=== PATIENT | female | born 1955 | race Caucasian/White ===

== ENCOUNTER 2016-04-01 15:05 | Emergency (ER) | payer SELFPAY ==
[~2016-04-01] VITALS: Ht 170.2 cm; Wt 102.1 kg
[~2016-04-01 15:05] MED LIST: ACET-1256 PO; ASPI325T45 PO
[2016-04-01 15:09] VITALS: TEMP 36.9; Ht 170.2 cm; Wt 102.1 kg
--- NOTE | 2016-04-01 15:29 | EMERGENCY ROOM VISIT NOTE ---
History First contact with patient: 15:13 Chief Complaint: NEURO SYMPTOMS Stated Complaint: NUMBNESS IN HAND, L LEG INTO TOES Nursing Triage Summary: Patient c/o "numbness in all 10 of her fingers, left toes and up to the knee in the leg. I've been having trouble with it the last couple months off and on. Today it got worse. Maybe it's just stress, I don't know." History of Present Illness The patient is a 61 year old female who presents to the Emergency Room via private vehicle with complaints of "numbness in hand, left leg and the toes". The patient states that today around 10:30 AM she was at home sitting when she notes her left leg started to go numb from the knee distally. She felt as if she was unable to lift the leg, and notes it felt as if it went completely numb. She feels that when she walks she has to drag the left leg. In addition her 10 fingers also feel numb and that has been occurring off and on for nearly one year now and she does have a history of carpal tunnel. She states that her legs have gone "numby" off and on for quite some time but nothing quite as severe as today. There is also associated dizziness which began around 10:30. The patient feels she is under stress recently and didn feel that she had chills and fever a few days ago but none today. There is associated blurred vision in the right eye which she's had for 8 years she believes this secondary to her history of head injuries. She does have a history of blood clots in her legs, but after further clarification she noted noted she was not formally diagnosed with DVTs. She did have abdominal pain yesterday but none today. She denies any recent falls, injuries, neck pain today, low back pain, arm weakness, chest pain, shortness of breath. Review of Systems A complete 10-point Review of Systems was discussed with the patient, with pertinent positives and negatives listed in the History of Present Illness. All remaining Review of Systems questions can be considered negative unless otherwise specified. Past Medical/Surgical History Medical Problems: (1) Chest pain (2) No Known Active Medical Problems DVT, skin problems, pneumonia, stomach problems Family History FH: HTN (hypertension) FH: cancer FH: diabetes mellitus FH: heart disease FH: lung disease Social History Smoking Status: Former Smoker Alcohol Use: occasionally Drug Use: none Housing Status: lives alone Occupation Status: employed Current/Historical Medications No Active Prescriptions or Reported Meds Allergies Coded Allergies: No Known Allergies (Unverified , 01/29/16) Physical Exam Vital Signs Date Time Temp Pulse Resp B/P Pulse Ox O2 Delivery O2 Flow Rate FiO2 04/01/16 21:58 77 18 121/70 97 04/01/16 20:40 69 18 127/84 96 Room Air 04/01/16 18:36 76 18 127/47 95 Room Air 04/01/16 16:55 68 20 127/81 95 Room Air 04/01/16 16:13 72 04/01/16 15:56 93 Room Air 04/01/16 15:56 73 19 123/79 94 Room Air 04/01/16 15:09 36.9 82 22 124/68 96 Room Air Physical Exam VITAL SIGNS - Vital signs and nursing notes were reviewed. Patient is afebrile , she is normotensive, she is not tachycardic and is saturating well on room air at 96%. GENERAL -61-year-old female appearing her stated age who is in no acute distress. The patient is standing upon my entrance into the exam room with support via cane. Communicates well with provider and answers questions appropriately. SKIN - Without rashes. This there are no breaks in the integument. HEAD - NC/AT. EYES - PERRL with EOMI bilaterally. Sclera anicteric. Palpebral conjunctiva pink and moist with no injection noted. No [place] signs or raccoons eyes. EARS - No deformities of external structures noted on gross examination bilaterally. No hemotympanum. External auditory canals without discharge or otorrhea. Tympanic membranes pearly benson without retraction or bulging. No fluid or purulent material visualized behind the TM. Handle of malleus, umbo, cone of light, pars tensa/flaccid all easily visualized. NOSE - Midline and without cyanosis. No epistaxis or purulent drainage noted. MOUTH/OROPHARYNX - Without perioral cyanosis. Buccal mucosa pink and moist and without leukoplakia. Tongue midline with equal elevation of palate bilaterally. NECK - Neck with FROM. No Meningeal signs. LUNGS - Chest wall symmetric without accessory muscle use, intercostals retractions, or central cyanosis. Normal vesicular breath sounds CTA B/L. No wheezes, rales, or rhonchi appreciated. CARDIAC - RRR with S1/S2. No murmur, rubs, or gallops appreciated. EXTREMITIES - No clubbing or peripheral cyanosis. No pretibial edema present. Vascularly intact. +5/5 strength noted in UE/LE bilaterally. NEUROLOGIC - Cranial nerves II through XII grossly intact. Sensory intact to light touch throughout. Patellar reflexes +2/4. No neurologic deficit. PSYCH - A&Ox3 and cooperates fully with examiner. Pt is very pleasant and interacts well with examiner. Medical Decision & Procedures ER Provider Diagnostic Interpretation: CT OF THE HEAD WITHOUT CONTRAST CLINICAL HISTORY: Left leg numb, finger numbness, dizzy COMPARISON STUDY: Head CT January 29, 2016. CT DOSE: 614.27 mGy.cm TECHNIQUE: Helical axial images of the head were obtained without IV contrast. Automated exposure control was utilized for the study. FINDINGS: No acute intracranial hemorrhage, midline shift or mass effect is present. Ventricular system is normal. The basilar cisterns are patent. There are no extra-axial collections. Benson-white differentiation is maintained. There are no findings to suggest acute dural sinus thrombosis or acute territorial infarct. There are no calvarial abnormalities. Visualized portions of the sinuses and mastoid air cells are clear. IMPRESSION: No acute intracranial findings. Electronically signed by: Etienne Hernandez M.D. 04/01/2016 3:36 PM Dictated Date/Time: 04/01/2016 3:33 PM LEFT LOWER EXTREMITY VENOUS DOPPLER HISTORY: Left lower leg edema COMPARISON STUDY: None. FINDINGS: There is normal compressibility, flow, and augmentation within the left lower extremity deep venous system. IMPRESSION: No DVT within the left lower extremity. Electronically signed by: Emanuel Spangler M.D. 04/01/2016 6:24 PM Dictated Date/Time: 04/01/2016 6:23 PM LEFT LOWER EXTREMITY ARTERIAL DOPPLER STUDY HISTORY: Left lower leg edema, numbness COMPARISON STUDY: None. FINDINGS: There are normal triphasic to biphasic waveforms seen throughout the left lower extremity arterial system. No elevated velocities to suggest hemodynamically significant stenosis. No areas of arterial occlusion. There is a small popliteal cyst measuring 3.6 x 1.3 cm. The ankle brachial indices on the right measured with the posterior tibial artery was 1.4 and the dorsalis pedis artery was 1.3. The left measured with the posterior tibial artery was 1.3 and the dorsalis pedis artery was 1.2. IMPRESSION: No hemodynamically significant stenosis seen within the left lower extremity arterial system. Electronically signed by: Emanuel Spangler M.D. 04/01/2016 6:27 PM Dictated Date/Time: 04/01/2016 6:25 PM CHEST ONE VIEW PORTABLE CLINICAL HISTORY: Dizziness. History of pneumonia. COMPARISON STUDY: Chest radiograph January 29, 2016. FINDINGS: Lung volumes are normal. There is no pneumothorax or pleural effusion. There is no evidence of pulmonary edema. Cardiomediastinal silhouette is within normal limits. IMPRESSION: No acute cardiopulmonary findings. Electronically signed by: Etienne Hernandez M.D. 04/01/2016 3:50 PM Dictated Date/Time: 04/01/2016 3:49 PM Laboratory Results 04/01/16 15:50 Red Blood Count 4.37, Mean Corpuscular Volume 88.3, Mean Corpuscular Hemoglobin 31.1, Mean Corpuscular Hemoglobin Concent 35.2, Mean Platelet Volume 10.0, Neutrophils (%) (Auto) 61.9, Lymphocytes (%) (Auto) 26.8, Monocytes (%) (Auto) 7.4, Eosinophils (%) (Auto) 3.5, Basophils (%) (Auto) 0.2, Neutrophils # (Auto) 5.82, Lymphocytes # (Auto) 2.52, Monocytes # (Auto) 0.70, Eosinophils # (Auto) 0.33, Basophils # (Auto) 0.02 04/01/16 15:50 Test 04/01/16 15:50 04/01/16 18:13 04/01/16 20:34 White Blood Count 9.41 K/uL (4.8-10.8) Red Blood Count 4.37 M/uL (4.2-5.4) Hemoglobin 13.6 g/dL (12.0-16.0) Hematocrit 38.6 % (37-47) Mean Corpuscular Volume 88.3 fL (80-100) Mean Corpuscular Hemoglobin 31.1 pg (25-34) Mean Corpuscular Hemoglobin Concent 35.2 g/dl (32-36) Platelet Count 252 K/uL (130-400) Mean Platelet Volume 10.0 fL (7.4-10.4) Neutrophils (%) (Auto) 61.9 % Lymphocytes (%) (Auto) 26.8 % Monocytes (%) (Auto) 7.4 % Eosinophils (%) (Auto) 3.5 % Basophils (%) (Auto) 0.2 % Neutrophils # (Auto) 5.82 K/uL (1.4-6.5) Lymphocytes # (Auto) 2.52 K/uL (1.2-3.4) Monocytes # (Auto) 0.70 K/uL (0.11-0.59) Eosinophils # (Auto) 0.33 K/uL (0-0.5) Basophils # (Auto) 0.02 K/uL (0-0.2) RDW Standard Deviation 41.3 fL (36.4-46.3) RDW Coefficient of Variation 12.8 % (11.5-14.5) Immature Granulocyte % (Auto) 0.2 % Immature Granulocyte # (Auto) 0.02 K/uL (0.00-0.02) Anion Gap 10.0 mmol/L (3-11) Est Creatinine Clear Calc Drug Dose 96.6 ml/min Estimated GFR () 98.0 Estimated GFR (Non- 84.5 BUN/Creatinine Ratio 13.9 (10-20) Calcium Level 8.9 mg/dl (8.5-10.1) Magnesium Level 2.0 mg/dl (1.8-2.4) Total Bilirubin 0.2 mg/dl (0.2-1) Aspartate Amino Transf (AST/SGOT) 11 U/L (15-37) Alanine Aminotransferase (ALT/SGPT) 18 U/L (12-78) Alkaline Phosphatase 71 U/L (45-117) Troponin I < 0.015 ng/ml (0-0.045) Total Protein 7.1 gm/dl (6.4-8.2) Albumin 4.0 gm/dl (3.4-5.0) Globulin 3.1 gm/dl (2.5-4.0) Albumin/Globulin Ratio 1.3 (0.9-2) Thyroid Stimulating Hormone (TSH) 0.718 uIu/ml (0.300-4.500) Lyme Disease IgG Antibody NEG (NEG) Lyme Disease IgM Antibody NEG (NEG) Prothrombin Time 10.3 SECONDS (9.0-12.0) Prothromb Time International Ratio 1.0 (0.9-1.1) Activated Partial Thromboplast Time 26.8 SECONDS (21.0-31.0) Partial Thromboplastin Ratio 1.0 Urine Color YELLOW Urine Appearance CLEAR (CLEAR) Urine pH 6.5 (4.5-7.5) Urine Specific [place] 1.004 (1.000-1.030) Urine Protein NEG (NEG) Urine Glucose (UA) NEG (NEG) Urine Ketones NEG (NEG) Urine Occult Blood NEG (NEG) Urine Nitrite NEG (NEG) Urine Bilirubin NEG (NEG) Urine Urobilinogen NEG (NEG) Urine Leukocyte Esterase NEG (NEG) Urine Opiates Screen NEG (NEG) Urine Methadone, Qualitative NEG (NEG) Urine Barbiturates NEG (NEG) Urine Phencyclidine (PCP) Level NEG (NEG) Ur Amphetamine/Methamphetamine NEG (NEG) MDMA (Ecstasy) Screen NEG (NEG) Urine Benzodiazepines Screen NEG (NEG) Urine Cocaine Metabolite NEG (NEG) Urine Marijuana (THC) NEG (NEG) Medical Decision Patient was seen and evaluated as above. After obtaining a thorough history and physical examination IV access was obtained and a stat CT of the head was ordered after concern for potential stroke like symptoms. Stat CT was obtained and was negative. IV access was initiated and a CBC, CMP, TSH, magnesium, regulation studies, UA clean catch culture if indicated, troponin, EKG, chest 1 view portable, urine drug screen, Lyme screen, RPR, NIH stroke scale secondary to subjective and objective information findings. Monitor was applied and continuous pulse ox was initiated. Above workup was relatively unremarkable with a CBC revealing no leukocytosis or anemia, there was no coagulation deficit , CMP revealed no elect slight abnormality or evidence of kidney failure. AST was slightly low at 11. TSH was within normal limits. Lyme disease screen negative with RPR pending. Toxicology screen negative as well as urine negative. With the above workup being relatively unremarkable and the EKG revealing a normal sinus rhythm rate of 76 bpm and negative troponin I do not suspect any emergent or surgical nature the patient's symptoms at this time. I then ordered an ultrasound of the left lower extremity to verify good arterial and venous supply and rule out clot. Results as above. No vascular compromise. Chest x-ray results are obtained and was within normal limits. Today the patient's workup was unremarkable therefore believe that emergent or surgical causes of her symptoms at this time are less likely. The patient's vital signs while here were stable. Patient was not anemic. I do believe the patient is able to follow-up in the outpatient setting with a neurologist whom she indicated she followed with in the past and had good success. She was instructed to call him tomorrow as well as her family doctor to follow up from today's visit. She was educated upon worrisome symptoms in which to return, had questions answered prior to discharge and was discharged home in good condition. In evaluation treatment this patient the following differential diagnoses were entertained: Arterial compromise of the leg, DVT, cardiac event, pneumonia, neurologic disorder, syphilis, Lyme disease, among many others. I do not suspect a leg numbness secondary to cauda equina syndrome as it is only from the knee down and she does not have any numbness or tingling in the genital region or incontinence. Impression Primary Impression: Dizzy Additional Impression: Left leg numbness Departure Information Dispostion Home / Self-Care Condition GOOD Prescriptions No Active Prescriptions or Reported Meds Referrals No Doctor, Assigned (PCP) Cielo Tse M.D. Patient Instructions [facility] Additional Instructions You were seen in the emergency department for dizziness, numbness of your leg and fingers. Your blood work did not reveal any sign of infection or anemia. There was no slight abnormality. The kidneys are working well. Your AST level is slightly low at 11. Your urine was normal. Your Lyme disease test was negative. The ultrasounds of your leg did not show any problems with blood flow. Your arteries and veins are working well. The x-ray of your chest did not reveal any emergent findings. The CT of your head did not reveal any emergent findings. Please follow-up with your family doctor regarding today's visit as well as a neurologist. You were given the number for Dr. Tse. Please call her family doctor and Dr. Tse first thing tomorrow morning to schedule follow-up. Please eat a healthy and well balanced diet and drink plenty of water. Please return to the emergency department with any new/concerning symptoms. Problem Qualifiers
--- NOTE | 2016-04-01 15:37 | DIAGNOSTIC IMAGING REPORT ---
CT OF THE HEAD WITHOUT CONTRAST CLINICAL HISTORY: Left leg numb, finger numbness, dizzy COMPARISON STUDY: Head CT January 29, 2016. CT DOSE: 614.27 mGy.cm TECHNIQUE: Helical axial images of the head were obtained without IV contrast. Automated exposure control was utilized for the study. FINDINGS: No acute intracranial hemorrhage, midline shift or mass effect is present. Ventricular system is normal. The basilar cisterns are patent. There are no extra-axial collections. Benson-white differentiation is maintained. There are no findings to suggest acute dural sinus thrombosis or acute territorial infarct. There are no calvarial abnormalities. Visualized portions of the sinuses and mastoid air cells are clear. IMPRESSION: No acute intracranial findings. Electronically signed by: Etienne Hernandez M.D. 04/01/2016 3:36 PM Dictated Date/Time: 04/01/2016 3:33 PM
--- NOTE | 2016-04-01 15:52 | DIAGNOSTIC IMAGING REPORT ---
CHEST ONE VIEW PORTABLE CLINICAL HISTORY: Dizziness. History of pneumonia. COMPARISON STUDY: Chest radiograph January 29, 2016. FINDINGS: Lung volumes are normal. There is no pneumothorax or pleural effusion. There is no evidence of pulmonary edema. Cardiomediastinal silhouette is within normal limits. IMPRESSION: No acute cardiopulmonary findings. Electronically signed by: Etienne Hernandez M.D. 04/01/2016 3:50 PM Dictated Date/Time: 04/01/2016 3:49 PM
[2016-04-01 15:56] VITALS: O2SAT 93
[2016-04-01 16:02] LABS: BASO % 0.2 %; BASO ABS # 0.02 K/uL (0-0.2); COMPLETE YES; EOS % 3.5 %; HEMATOCRIT 38.6 % (37-47); IG% 0.2 %; LYMPH % 26.8 %; LYMPH ABS # 2.52 K/uL (1.2-3.4); MEAN CELL VOLUME 88.3 fL (80-100); MEAN CORPUSCULAR HEMOGLOBIN 31.1 pg (25-34); MEAN CORPUSCULAR HGB CONC 35.2 g/dl (32-36); MONO % 7.4 %; NEUT % 61.9 %; PLATELET COUNT 252 K/uL (130-400); RED BLOOD COUNT 4.37 M/uL (4.2-5.4); WHITE BLOOD COUNT 9.41 K/uL (4.8-10.8)
[2016-04-01 16:21] LABS: ALT/SGPT 18 U/L (12-78); BLOOD UREA NITROGEN 11 mg/dl (7-18); BUN/CREATININE RATIO 13.9 (10-20); CALCIUM 8.9 mg/dl (8.5-10.1); CARBON DIOXIDE 27 mmol/L (21-32); CHLORIDE 106 mmol/L (98-107); CREATININE 0.77 mg/dl (0.60-1.20); GLUCOSE 83 mg/dl (70-99); POTASSIUM 3.8 mmol/L (3.5-5.1); SODIUM 143 mmol/L (136-145)
[2016-04-01 16:32] LABS: ALB/GLOB RATIO 1.3 (0.9-2); ALKALINE PHOSPHATASE 71 U/L (45-117); AST/SGOT 11 U/L (15-37); THYROID STIMULATING HORMONE 0.718 uIu/ml (0.300-4.500)
[2016-04-01 17:07] LABS: LYME DISEASE AB IGG NEG (NEG); LYME DISEASE AB IGM NEG (NEG)
--- NOTE | 2016-04-01 18:26 | DIAGNOSTIC IMAGING REPORT ---
LEFT LOWER EXTREMITY VENOUS DOPPLER HISTORY: Left lower leg edema COMPARISON STUDY: None. FINDINGS: There is normal compressibility, flow, and augmentation within the left lower extremity deep venous system. IMPRESSION: No DVT within the left lower extremity. Electronically signed by: Emanuel Spangler M.D. 04/01/2016 6:24 PM Dictated Date/Time: 04/01/2016 6:23 PM
--- NOTE | 2016-04-01 18:29 | DIAGNOSTIC IMAGING REPORT ---
LEFT LOWER EXTREMITY ARTERIAL DOPPLER STUDY HISTORY: Left lower leg edema, numbness COMPARISON STUDY: None. FINDINGS: There are normal triphasic to biphasic waveforms seen throughout the left lower extremity arterial system. No elevated velocities to suggest hemodynamically significant stenosis. No areas of arterial occlusion. There is a small popliteal cyst measuring 3.6 x 1.3 cm. The ankle brachial indices on the right measured with the posterior tibial artery was 1.4 and the dorsalis pedis artery was 1.3. The left measured with the posterior tibial artery was 1.3 and the dorsalis pedis artery was 1.2. IMPRESSION: No hemodynamically significant stenosis seen within the left lower extremity arterial system. Electronically signed by: Emanuel Spangler M.D. 04/01/2016 6:27 PM Dictated Date/Time: 04/01/2016 6:25 PM
[2016-04-01 18:48] LABS: PROTHROMBIN TIME (PATIENT) 10.3 SECONDS (9.0-12.0)
[2016-04-01 20:59] LABS: URINE APPEARANCE CLEAR (CLEAR); URINE BILIRUBIN NEG (NEG); URINE COLOR YELLOW; URINE NITRITE NEG (NEG); URINE PH 6.5 (4.5-7.5); URINE SPECIFIC GRAVITY 1.004 (1.000-1.030); UROBILINOGEN NEG (NEG); ZZUR CULT IF INDIC CLEAN CATCH NO
[2016-04-01 21:08] LABS: MANUAL MICROSCOPIC REQUIRED? NO; REVIEW REQ? NO
[2016-04-01 21:22] LABS: BENZODIAZEPINE, URINE NEG (NEG); COCAINE,URINE NEG (NEG); PHENCYCLIDINE, URINE NEG (NEG)
[2016-04-01 21:58] VITALS: BP 121/70; PULSE 77; O2SAT 97
[2016-04-02 02:48] LABS: RAPID PLASMA REAGIN NONREACTIVE (NONREACT)
== END 2016-04-01 21:59 | disposition home or self-care (01) ==
LOC: C.EDB 15:06 → C.EDA 21:59
DX: R42 Dizziness and giddiness (principal); R20.0 Anesthesia of skin; Z87.891 Personal history of nicotine dependence; Z86.718 Personal history of other venous thrombosis and embolism

== ENCOUNTER 2016-07-29 10:14 | Emergency (ER) | payer SELFPAY ==
[~2016-07-29] VITALS: Ht 170.2 cm; Wt 108.6 kg
[2016-07-29 10:20] VITALS: TEMP 37; Ht 170.2 cm; Wt 108.6 kg
[2016-07-29 12:05] LABS: BASO % 0.3 %; BASO ABS # 0.03 K/uL (0-0.2); COMPLETE YES; EOS % 2.4 %; HEMATOCRIT 41.3 % (37-47); IG% 0.1 %; LYMPH % 23.1 %; MEAN CELL VOLUME 90.8 fL (80-100); MEAN CORPUSCULAR HGB CONC 34.1 g/dl (32-36); MEAN PLATELET VOLUME 9.8 fL (7.4-10.4); MONO % 5.5 %; NEUT % 68.6 %; PLATELET COUNT 242 K/uL (130-400); RED BLOOD COUNT 4.55 M/uL (4.2-5.4); WHITE BLOOD COUNT 8.65 K/uL (4.8-10.8)
--- NOTE | 2016-07-29 12:13 | DIAGNOSTIC IMAGING REPORT ---
Venous Doppler left leg LEFT VENOUS DOPP LOWER EXT UNILAT CLINICAL HISTORY: L lower leg, swelling and weakness pain. Edema. TECHNIQUE: Venous Doppler COMPARISON STUDY: 04/01/2016 FINDINGS: Normal study IMPRESSION: Normal study Electronically signed by: See Ibarra M.D. 07/29/2016 12:11 PM Dictated Date/Time: 07/29/2016 12:11 PM
[2016-07-29 12:27] LABS: BUN/CREATININE RATIO 27.8 (10-20); CALCIUM 8.8 mg/dl (8.5-10.1); CREATININE 0.72 mg/dl (0.60-1.20)
[2016-07-29 12:56] LABS: LYME DISEASE AB IGG NEG (NEG); LYME DISEASE AB IGM NEG (NEG)
[2016-07-29 13:10] VITALS: BP 111/90; PULSE 74; O2SAT 97
--- NOTE | 2016-07-29 17:22 | EMERGENCY ROOM VISIT NOTE ---
ED Visit Note First contact with patient: 11:17 Chief Complaint: Left lower leg pain. History of Present Illness: Purnima vargas is a 61-year-old white female who is ambulates into the ED using a cane complaining of left lower leg pain, swelling and numbness. Patient reports she was her normal self until approximately 2 weeks ago. She reports after being outside she felt the back of her leg and noted a tick embedded in her leg over the Achilles tendon. She removed the tick without difficulty but was unsure she removed all of the tick. She reports over the last 2 weeks she has noted the area where the tick removed started scabbing over and became painful. She goes on to report that over the last 2 days she has developed numbness sensation throughout the lower leg and she feels that her leg is swollen. Additionally she reports that she feels like she has weakness in her knee and that when she ambulates is going to give out. She describes her discomfort as a throbbing sensation throughout the lower leg. She rates her discomfort 6/10. Her pain is nonradiating. Her pain worsens with ambulation. She has not identified any alleviating factors related to the pain. She has not taken any medications for pain prior to arrival at the hospital. As previously noted associated with her pain she does report she has a numbness sensation throughout the leg and she feels that the leg is swollen. Additionally she reports last evening she was running a temperature of 100F and is unsure this has anything to do with her current symptoms. She denies skin eruptions, skin color changes, headache, dizziness, lightheadedness, upper respiratory tract symptoms, shortness of breath, cough, abdominal pain, nausea, vomiting, decreased appetite, previous clots, claudication, cramping, other joint pains, previous Lyme's disease. Review of Systems: As noted above in history of present illness. All body systems were reviewed and found to be negative as noted above. Past Medical History: Unspecified heart disease, unspecified skin disorder, pneumonia, unspecified stomach disorder, lower extremity DVT. Current Medications: Patient denies. Allergies to Medications: Patient denies. Social History: Patient is not currently employed; she feels safe in her home environment; she admits to tobacco and alcohol use. Physical Examination: Vital Signs: Date Time Temp Pulse Resp B/P Pulse Ox O2 Delivery O2 Flow Rate FiO2 07/29/16 13:10 74 18 111/90 97 07/29/16 10:20 37.0 79 22 126/59 95 Room Air GENERAL: 61-year-old female in mild distress due to pain, nontoxic-appearing, afebrile and hemodynamically stable. NEUROLOGICAL: Awake, alert and oriented to person, place and time. Answering questions appropriately and following commands. Good hand eye coordination. No focal motor or sensory deficits. SKIN: Warm, dry and pink. Left Lower Extremity: Over the posterior aspect of the lower leg over the Achilles tendon patient has a dime sized scab lesion. There is no local erythema or edema. There is no local lymphadenitis. I did not unroofed the lesion to see if there is any remanent of tick. This area is mildly tender to palpation but does not appear infected. HEENT: Atraumatic and normocephalic. PERRLA. Sclera white and conjunctiva pink. No drainage from naris. Oral cavity moist and pink. Pharynx is nonerythematous or edematous. Speech normal. No lymphadenopathy. Trachea midline. No jugular venous distention. THORAX: Lungs sounds are clear to auscultation and equal bilaterally with symmetrical chest wall. No wheezing, rales or rhonchi. No crepitus, tenderness , subcutaneous air or deformities noted. HEART: Regular rate and rhythm. No gallops, rubs or murmurs are appreciated. ABDOMEN: Flat, soft and nontender. Positive bowel sounds in all quadrants. No guarding, rigidity or organomegaly. LEFT LOWER EXTREMITY: No gross bony deformity. No shortening or malrotation. No tenderness in the hip, knee, ankle or foot. Negative ballottement test. Negative apprehension test. No laxity of the collateral cruciate ligaments. No lateral or medial joint line tenderness. Negative Koko's test. Mild tenderness over her scabbed area as previously noted on SKIN. I do not appreciate any calf tenderness or cords. There is mild dependent edema in the leg. Full range of motion of the hip, knee, ankle and foot. Distal pulses are intact and equal bilaterally. Capillary refill is brisk in the feet. Patient was able to distinguish light sensations through all dermatomes of the feet. No calf tenderness or cords. ED Course: Patient is assessed as noted above. Laboratory Testing: Test 07/29/16 11:50 Range/Units White Blood Count 8.65 4.8-10.8 K/uL Red Blood Count 4.55 4.2-5.4 M/uL Hemoglobin 14.1 12.0-16.0 g/dL Hematocrit 41.3 37-47 % Mean Corpuscular Volume 90.8 80-100 fL Mean Corpuscular Hemoglobin 31.0 25-34 pg Mean Corpuscular Hemoglobin Concent 34.1 32-36 g/dl Platelet Count 242 130-400 K/uL Mean Platelet Volume 9.8 7.4-10.4 fL Neutrophils (%) (Auto) 68.6 % Lymphocytes (%) (Auto) 23.1 % Monocytes (%) (Auto) 5.5 % Eosinophils (%) (Auto) 2.4 % Basophils (%) (Auto) 0.3 % Neutrophils # (Auto) 5.92 1.4-6.5 K/uL Lymphocytes # (Auto) 2.00 1.2-3.4 K/uL Monocytes # (Auto) 0.48 0.11-0.59 K/uL Eosinophils # (Auto) 0.21 0-0.5 K/uL Basophils # (Auto) 0.03 0-0.2 K/uL RDW Standard Deviation 43.2 36.4-46.3 fL RDW Coefficient of Variation 12.9 11.5-14.5 % Immature Granulocyte % (Auto) 0.1 % Immature Granulocyte # (Auto) 0.01 0.00-0.02 K/uL Sodium Level 140 136-145 mmol/L Potassium Level 4.0 3.5-5.1 mmol/L Chloride Level 105 98-107 mmol/L Carbon Dioxide Level 31 21-32 mmol/L Anion Gap 4.0 3-11 mmol/L Blood Urea Nitrogen 20 7-18 mg/dl Creatinine 0.72 0.60-1.20 mg/dl Est Creatinine Clear Calc Drug Dose 106.8 ml/min Estimated GFR () 106.2 Estimated GFR (Non- 91.7 BUN/Creatinine Ratio 27.8 10-20 Random Glucose 95 70-99 mg/dl Calcium Level 8.8 8.5-10.1 mg/dl Lyme Disease IgG Antibody NEG NEG Lyme Disease IgM Antibody NEG NEG Left Lower Leg Venous Doppler Ultrasound: Was reviewed by myself and read by the radiologist showing no deep vein thrombus. Patient was reassessed multiple times during her stay in the emergency department. Patient's knee was wrapped with an Devin bandage for support. Patient's case was reviewed with Dr. Ryan; we agreed on diagnostic approach, treatment, disposition and plan. Patient was educated about today's findings and instructed on her treatment plan ; she verbalizes understanding and agreement with this plan. Clinical Impression: Left lower leg pain. Mild dependent edema. Recent tick bite. Decision-Making: Initially my differential diagnosis I considered Lyme's disease , DVT, skin infection, Achilles tendinitis and other causes. Disposition: Patient discharged home in stable condition; prior to departure she was reassessed and subjectively reported she was feeling better and rated her discomfort 3/10. Plan: Patient was encouraged to alternate ibuprofen and acetaminophen every 3 hours as needed for pain. Patient was encouraged to continue using the Devin bandage and her cane for ambulation. Patient was encouraged to keep her leg elevated while at rest. Patient was encouraged to follow-up with her PCP for recheck. Patient was encouraged return the ED for worsening/uncontrolled pain, increasing swelling, worsening leg numbness/tingling, the development of redness , swelling, red streaking, pus like drainage or fever in the area of her tick wound or any new/concerning symptoms.
== END 2016-07-29 13:39 | disposition home or self-care (01) ==
LOC: C.EDB 10:16 → C.EDD 13:39
DX: M79.605 Pain in left leg (principal); R60.0 Localized edema; W57.XXXA Bitten or stung by nonvenomous insect and other nonvenomous arthropods, initial encounter; I51.9 Heart disease, unspecified; Z87.01 Personal history of pneumonia (recurrent); K31.9 Disease of stomach and duodenum, unspecified; Z86.718 Personal history of other venous thrombosis and embolism; Z72.0 Tobacco use

== ENCOUNTER 2017-04-02 15:40 | Observation (INO) | payer OTHER ==
[~2017-04-02] VITALS: Ht 167.6 cm; Wt 106.4 kg
--- NOTE | 2017-04-02 16:38 | EMERGENCY ROOM VISIT NOTE ---
ED Visit Note First contact with patient: 16:37 Staff note: I have reviewed the Patients chart and have discussed this case with my PA. I generally agree with the ED note and findings.
--- NOTE | 2017-04-02 16:58 | EMERGENCY ROOM VISIT NOTE ---
History First contact with patient: 15:45 Chief Complaint: FLU LIKE SX Stated Complaint: FLU LIKE SX, DIZZY, NAUSEA, FULL BODY PAIN, History of Present Illness The patient is a 62 year old female who presents to the Emergency Room with complaints of flulike symptoms. The patient was brought in by the [place] police. She reportedly got aggressive towards a home health care worker taking care of her mother. The patient is currently refusing most of my questions. She does complain of a headache and fever. She also complains of bilateral hand numbness and tingling. This has been going on for several days. She is concerned that she may have Lyme disease as she had a tick bite last year. I contacted the patient's daughter, who says that she has a history of " chemical imbalance." She has not been taking any medications for years. She also reportedly has not been to a doctor in several years. She is reportedly living with her mother. She denies any suicidal or homicidal ideations. Review of Systems 10 system review performed and negative unless noted in HPI or below. This was done to the best of my ability Past Medical/Surgical History Medical Problems: (1) Altered mental status (2) Chest pain (3) No Known Active Medical Problems Family History FH: HTN (hypertension) FH: cancer FH: diabetes mellitus FH: heart disease FH: lung disease Social History Smoking Status: Never Smoker Alcohol Use: occasionally Drug Use: none Housing Status: lives with family Occupation Status: employed Current/Historical Medications Unable to Obtain Active Prescriptions or Reported Meds Physical Exam Vital Signs Date Time Temp Pulse Resp B/P (MAP) Pulse Ox O2 Delivery O2 Flow Rate FiO2 04/02/17 21:11 87 16 137/92 96 Room Air 04/02/17 20:00 89 16 139/92 97 Room Air 04/02/17 19:28 97 16 105/77 95 Room Air 04/02/17 18:51 97 16 109/89 94 Room Air 04/02/17 17:44 95 16 126/88 93 Room Air 04/02/17 16:37 36.9 96 16 103/85 94 Room Air Physical Exam VITALS: Vitals are noted on the nurse's note and reviewed by myself. Vital signs stable. GENERAL: 62-year-old female, disheveled in appearance, SKIN: The skin was without rashes, erythema, edema, or bruising. HEAD: Normocephalic atraumatic. EYES: Pupils equal round and reactive to light and accommodation. Conjunctivae without injection, sclerae without icterus. Extraocular movements intact. \\MOUTH: Mucous membranes slightly dry NECK: Supple without nuchal rigidity. . No JVD. HEART: Regular rate and rhythm without murmurs gallops or rubs. LUNGS: Clear to auscultation bilaterally without wheezes, rales or rhonchi. No accessory muscle use. ABDOMEN: Positive bowel sounds x 4.Soft, MUSCULOSKELETAL: No muscle atrophy, erythema, or edema noted. Strength 5/5 throughout. NEURO: Patient was alert and oriented to person and place. She does not follow commands. She is moving all of her extremities without difficulty. Medical Decision & Procedures Laboratory Results 04/02/17 16:51 Red Blood Count 4.76, Mean Corpuscular Volume 90.3, Mean Corpuscular Hemoglobin 30.9, Mean Corpuscular Hemoglobin Concent 34.2, Mean Platelet Volume 10.2, Neutrophils (%) (Auto) 77.3, Lymphocytes (%) (Auto) 15.5, Monocytes (%) (Auto) 5.3, Eosinophils (%) (Auto) 1.3, Basophils (%) (Auto) 0.3, Neutrophils # (Auto) 8.67, Lymphocytes # (Auto) 1.74, Monocytes # (Auto) 0.60, Eosinophils # (Auto) 0.15, Basophils # (Auto) 0.03 04/02/17 16:51 Test 04/02/17 16:51 04/02/17 16:54 04/02/17 16:58 04/02/17 19:55 White Blood Count 11.22 K/uL (4.8-10.8) Red Blood Count 4.76 M/uL (4.2-5.4) Hemoglobin 14.7 g/dL (12.0-16.0) Hematocrit 43.0 % (37-47) Mean Corpuscular Volume 90.3 fL (80-100) Mean Corpuscular Hemoglobin 30.9 pg (25-34) Mean Corpuscular Hemoglobin Concent 34.2 g/dl (32-36) Platelet Count 273 K/uL (130-400) Mean Platelet Volume 10.2 fL (7.4-10.4) Neutrophils (%) (Auto) 77.3 % Lymphocytes (%) (Auto) 15.5 % Monocytes (%) (Auto) 5.3 % Eosinophils (%) (Auto) 1.3 % Basophils (%) (Auto) 0.3 % Neutrophils # (Auto) 8.67 K/uL (1.4-6.5) Lymphocytes # (Auto) 1.74 K/uL (1.2-3.4) Monocytes # (Auto) 0.60 K/uL (0.11-0.59) Eosinophils # (Auto) 0.15 K/uL (0-0.5) Basophils # (Auto) 0.03 K/uL (0-0.2) RDW Standard Deviation 41.9 fL (36.4-46.3) RDW Coefficient of Variation 12.7 % (11.5-14.5) Immature Granulocyte % (Auto) 0.3 % Immature Granulocyte # (Auto) 0.03 K/uL (0.00-0.02) Anion Gap 7.0 mmol/L (3-11) Est Creatinine Clear Calc Drug Dose 110.8 ml/min Estimated GFR () 109.7 Estimated GFR (Non- 94.6 BUN/Creatinine Ratio 14.0 (10-20) Calcium Level 9.2 mg/dl (8.5-10.1) Magnesium Level 1.9 mg/dl (1.8-2.4) Total Bilirubin 0.3 mg/dl (0.2-1) Aspartate Amino Transf (AST/SGOT) 12 U/L (15-37) Alanine Aminotransferase (ALT/SGPT) 20 U/L (12-78) Alkaline Phosphatase 77 U/L (45-117) Troponin I < 0.015 ng/ml (0-0.045) Total Protein 7.8 gm/dl (6.4-8.2) Albumin 4.2 gm/dl (3.4-5.0) Globulin 3.6 gm/dl (2.5-4.0) Albumin/Globulin Ratio 1.2 (0.9-2) Thyroid Stimulating Hormone (TSH) 1.340 uIu/ml (0.300-4.500) Salicylates Level 7.2 mg/dl (2.8-20) Acetaminophen Level < 2 ug/ml (10-30) Ethyl Alcohol mg/dL < 3.0 mg/dl (0-3) Lyme Disease IgG Antibody NEG (NEG) Lyme Disease IgM Antibody NEG (NEG) Influenza Type A Antigen Neg for Influ A (NEG) Influenza Type B Antigen Neg for Influ B (NEG) Urine Color YELLOW Urine Appearance CLEAR (CLEAR) Urine pH 5.5 (4.5-7.5) Urine Specific [place] 1.015 (1.000-1.030) Urine Protein NEG (NEG) Urine Glucose (UA) NEG (NEG) Urine Ketones NEG (NEG) Urine Occult Blood NEG (NEG) Urine Nitrite NEG (NEG) Urine Bilirubin NEG (NEG) Urine Urobilinogen NEG (NEG) Urine Leukocyte Esterase NEG (NEG) Test 04/02/17 20:10 Urine Opiates Screen NEG (NEG) Urine Methadone, Qualitative NEG (NEG) Urine Barbiturates NEG (NEG) Urine Phencyclidine (PCP) Level NEG (NEG) Ur Amphetamine/Methamphetamine NEG (NEG) MDMA (Ecstasy) Screen NEG (NEG) Urine Benzodiazepines Screen NEG (NEG) Urine Cocaine Metabolite NEG (NEG) Urine Marijuana (THC) NEG (NEG) Medications Administered Medications (Trade) Dose Ordered Sig/Luis Route Start Time Stop Time Status Last Admin Dose Admin Acetaminophen (Tylenol Tab) 1,000 mg NOW STAT PO 04/02/17 18:17 04/02/17 18:18 DC 04/02/17 18:23 1,000 MG Ketorolac Tromethamine (Toradol Inj) 30 mg NOW STAT IV 04/02/17 18:17 04/02/17 18:18 DC 04/02/17 18:24 30 MG ECG Indication: other Rate (beats per minute): 98 Rhythm: normal sinus Findings: other (Q waves in the anterior leads.) Change: no significant change ED Course Patient was seen and examined Vital signs including blood pressure were reviewed medications list was verified with patient Labs were obtained, and a saline lock was established Upon reevaluation, the patient was answering most questions appropriately. She would however occasionally answer inappropriately. She was evaluated by the psychiatric liaison. I discussed the patient's workup with her and her family. They voiced understanding. The case was discussed with supervising physician who personally evaluated the patient. It was also discussed with case management. I had a long discussion with the family regarding possible diagnosis and treatment plans. They did not feel comfortable discharging her home. I spoke with the [facility] hospitalist group, who kindly agreed to admit the patient for further evaluation Medical Decision Differential diagnosis: TIA, CVA, medical noncompliance, neglect, altered mental status, metabolic encephalopathy, infectious etiology, tr, other psychiatric disorders This patient is a 62-year-old female that was brought into the emergency department by the police with complaints of flulike symptoms and numbness and tingling in her hands. Upon arrival, it was unclear if the patient was able to make decisions for her care as she was refusing to answer any questions. She also clearly has an underlying psychiatric disorder. The etiology of her numbness and tingling is unclear. Her sensation appeared to be intact in her hands. CT of the head was negative. Workup was otherwise unremarkable. There is concern that the patient may be having a manic episode as she was answering some questions inappropriately. She also has no one to care for her at home. I 'm concerned for her safety. Did not feel comfortable discharging patient home. For this reason, she was evaluated hospitalist who kindly agreed to keep the patient overnight for further workup and treatment. This chart was completed in part utilizing [employer] Speech Voice Recognition software. Attempts were made to minimize the grammatical errors, random word insertions, pronoun errors and incomplete sentences. Any formal questions or concerns about the content, text or information contained within the body of this dictation should be directly addressed to the provider for clarification. Impression Primary Impression: Altered mental status Departure Information Dispostion Home / Self-Care Condition GOOD Prescriptions Unable to Obtain Active Prescriptions or Reported Meds Referrals No Doctor, Assigned (PCP) Jailene Culver MD Patient Instructions My [facility] Additional Instructions You had been evaluated in the emergency department for body aches and fever symptoms. A flu test was done and negative. Chest x-ray was also normal. Please follow-up with a primary care physician and/or psychologist/psychiatrist as soon as possible. A number to a psychiatrist's office was provided. Ibuprofen 600 mg and/or Tylenol 1000 mg every 8 hours for pain and fever You may also alternate these medications for more effective pain relief: Ibuprofen --4 HRS--> Tylenol --4 HRS--> ibuprofen --4 HRS--> Tylenol .... Stay well hydrated. Drink plenty of water. Do not hesitate to return to the emergency department with any new, worsening or concerning symptoms; especially, thoughts of harming your self or others, or not feeling safe at home.
--- NOTE | 2017-04-02 17:01 | DIAGNOSTIC IMAGING REPORT ---
CHEST ONE VIEW PORTABLE HISTORY: 62 years-old Female fever acute fever with flulike symptoms COMPARISON: Chest radiograph 04/01/2016 TECHNIQUE: Portable AP view of the chest FINDINGS: Cardiomediastinal and hilar silhouettes are within normal limits. Atherosclerosis of the aorta. Right lung apex is partially secured by the patient's chin. No pneumothorax, pleural effusion, focal airspace consolidation or overt pulmonary edema. The bones of the chest appear grossly intact. IMPRESSION: No acute process. The above report was generated using voice recognition software. It may contain grammatical, syntax or spelling errors. Electronically signed by: Mars Vivas M.D. 04/02/2017 5:00 PM Dictated Date/Time: 04/02/2017 4:59 PM
[2017-04-02 17:05] LABS: BASO % 0.3 %; BASO ABS # 0.03 K/uL (0-0.2); EOS % 1.3 %; EOS ABS # 0.15 K/uL (0-0.5); HEMOGLOBIN 14.7 g/dL (12.0-16.0); IG# 0.03 K/uL (0.00-0.02); LYMPH % 15.5 %; LYMPH ABS # 1.74 K/uL (1.2-3.4); MEAN CELL VOLUME 90.3 fL (80-100); MEAN CORPUSCULAR HEMOGLOBIN 30.9 pg (25-34); MEAN CORPUSCULAR HGB CONC 34.2 g/dl (32-36); MEAN PLATELET VOLUME 10.2 fL (7.4-10.4); MONO % 5.3 %; NEUT % 77.3 %; NEUT ABS # 8.67 K/uL (1.4-6.5); PLATELET COUNT 273 K/uL (130-400); RED CELL DISTRIBUTION WIDTH CV 12.7 % (11.5-14.5); RED CELL DISTRIBUTION WIDTH SD 41.9 fL (36.4-46.3); WHITE BLOOD COUNT 11.22 K/uL (4.8-10.8)
[2017-04-02 17:24] LABS: ALBUMIN 4.2 gm/dl (3.4-5.0); ALT/SGPT 20 U/L (12-78); BLOOD UREA NITROGEN 10 mg/dl (7-18); CALCIUM 9.2 mg/dl (8.5-10.1); CARBON DIOXIDE 28 mmol/L (21-32); CREATININE 0.69 mg/dl (0.60-1.20); GLUCOSE 107 mg/dl (70-99); POTASSIUM 4.4 mmol/L (3.5-5.1); SODIUM 139 mmol/L (136-145)
[2017-04-02 17:40] LABS: INFLUENZA B ANTIGEN Neg for Influ B (NEG)
[2017-04-02 17:43] LABS: ALKALINE PHOSPHATASE 77 U/L (45-117); AST/SGOT 12 U/L (15-37); TOTAL PROTEIN 7.8 gm/dl (6.4-8.2)
[2017-04-02] MEDS ORDERED: ACETAMINOPHEN 500 MG TAB PO STA (18:17)
[2017-04-02] MEDS ORDERED: KETOROLAC TROMETHAMINE 30 MG/ML VIAL IV STA (18:17)
--- NOTE | 2017-04-02 18:47 | DIAGNOSTIC IMAGING REPORT ---
HEAD WITHOUT CONTRAST (CT) CLINICAL HISTORY: 62 years-old Female with confusion. Acute confusion TECHNIQUE: Multiple axial CT images of the head were obtained without contrast. A dose lowering technique was utilized adhering to the principles of ALARA. CT DOSE: 537.48 mGy.cm COMPARISON: CT head 04/01/2016. FINDINGS: No acute intracranial hemorrhage, midline shift, intracranial mass, hydrocephalus, territorial ischemia or abnormal extra-axial collection. The calvarium is intact. The paranasal sinuses, mastoid air cells, and middle ear cavities are clear. Large right lisa bullosa. Mild leftward bowing of the nasal septum. IMPRESSION: No acute intracranial abnormality. The above report was generated using voice recognition software. It may contain grammatical, syntax or spelling errors. Electronically signed by: Mars Vivas M.D. 04/02/2017 6:46 PM Dictated Date/Time: 04/02/2017 6:44 PM
[2017-04-02] MEDS ORDERED: OPTIRAY 320 IV PRN (21:30)
[2017-04-02 22:02] VITALS: BP 169/97; PULSE 104; TEMP 36.6; O2SAT 95; Ht 167.6 cm; Wt 106.4 kg
--- NOTE | 2017-04-02 22:05 | DIAGNOSTIC IMAGING REPORT ---
(CHEST FOR PE) ANGIO WITH CT DOSE: 2265.93 mGy.cm HISTORY: 62 years-old Female presents with acute atypical chest pain TECHNIQUE: Multiple CTA images of the chest were obtained after the intravenous administration of 116 ml Optiray 320. Coronal and sagittal MIPS were obtained from the axial data set and were submitted for review. A dose lowering technique was utilized adhering to the principles of ALARA. COMPARISON: Portable chest radiograph of same day. FINDINGS: CTA: Heart appears normal in size without pericardial effusion. Thoracic aorta is normal in both course and caliber without aneurysm or dissection. 4 vessel aortic arch is noted with the left vertebral artery emanating directly from the arch. Imaged great vessels appear to be patent. Pulmonary arterial tree is opacified to the level of the proximal lobar branches. The segmental and subsegmental branches are not well opacified secondary to contrast bolus timing. Within the limitations of the study, no evidence of pulmonary thromboembolic disease. CT CHEST: Thyroid appears homogeneous. No pathologic adenopathy of the chest identified. No pneumothorax, pleural effusion, focal airspace consolidation or overt pulmonary edema. There are no suspicious pulmonary nodules or masses identified. Central airways appear patent. No acute abnormality of the imaged upper abdomen. Soft tissues are unremarkable. Bones appear intact. Multilevel endplate degenerative changes of the spine. IMPRESSION: 1. No acute intrathoracic abnormality identified, specifically no acute aortic pathology or evidence of pulmonary thromboembolic disease. Study is limited as above secondary to contrast bolus timing. 2. No pathologic adenopathy or lobar airspace consolidation. The above report was generated using voice recognition software. It may contain grammatical, syntax or spelling errors. Electronically signed by: Mars Vivas M.D. 04/02/2017 10:04 PM Dictated Date/Time: 04/02/2017 9:59 PM
--- NOTE | 2017-04-02 22:13 | DIAGNOSTIC IMAGING REPORT ---
ABDOMEN AND PELVIS CT WITH IV CONTRAST HISTORY: Acute generalized abdominal pain abd pain TECHNIQUE: Multiaxial CT images of the abdomen and pelvis were performed following the use of intravenous contrast. A dose lowering technique was utilized adhering to the principles of ALARA. COMPARISON STUDY: CTA of the chest of same day. FINDINGS: Lung bases appear clear. No pneumatosis or pneumoperitoneum. Imaged inferior cardiac chambers are unremarkable. Liver, spleen, pancreas and right adrenal gland appear unremarkable. Thickening of the left adrenal gland suggests hyperplasia. Gallbladder is unremarkable. Intermediate attenuating 2.5 cm circumscribed lesion of the medial interpolar left kidney is noted. Parenchymal scarring is noted involving the superior pole right kidney. No renal calculi or hydronephrosis. Ureters and urinary bladder are within normal limits. There is an ovoid 5.1 x 5.5 cm lesion involving the left hemipelvis within the left aspect of the uterus. Adnexa appear unremarkable. Aorta is normal in course and caliber. No bulky adenopathy. Probable lipoma of the third portion duodenum measures 7 mm. No bowel obstruction or focal bowel wall thickening. The appendix appears normal. Soft tissues are unremarkable. Small calcified granuloma the left subcutaneous gluteal region. Multilevel endplate degenerative changes of the spine. IMPRESSION: 1. No acute intra-abdominal or intrapelvic abnormality identified. 2. 5.1 x 5.5 cm ovoid lesion of the left aspect of the uterus suggests uterine leiomyoma. 3. Intermediate attenuating ovoid 2.5 cm lesion of the medial interpolar left kidney may reflect a mildly complex renal cyst and could be further characterized with a renal ultrasound. 4. Normal appendix. Electronically signed by: Mars Vivas M.D. 04/02/2017 10:12 PM Dictated Date/Time: 04/02/2017 10:04 PM
[2017-04-02] MEDS ORDERED: DOCUSATE SODIUM/SENNA 50/8.6MG TAB PO ONE (22:35)
[2017-04-02] MEDS ORDERED: POLYETHYLENE (MIRALAX) 17 GM PACK PO ONE (22:35)
[2017-04-02] MEDS ORDERED: NITROGLYCERIN 0.4 MG SL PER TAB CHARGE SL PRN (22:45)
[2017-04-02] MEDS ORDERED: ACETAMINOPHEN 325 MG TAB PO PRN (22:45)
[2017-04-02] MEDS ORDERED: LORAZEPAM 2 MG/ML 1 ML VIAL IV PRN (22:45)
[2017-04-02] MEDS ORDERED: SODIUM CHLORIDE 0.9% 1000ML 1,000 ML IV ONE (22:45)
[2017-04-02] MEDS ORDERED: TRAMADOL HCL 50 MG TAB PO PRN (22:45)
[2017-04-02] MEDS ORDERED: POLYETHYLENE (MIRALAX) 17 GM PACK PO PRN (22:45)
[2017-04-02] MEDS ORDERED: PROCHLORPERAZINE INJ 5 MG in SYRINGE 4 ML IV PRN (22:45)
[2017-04-02 23:48] VITALS: BP 119/77; PULSE 86; TEMP 36.5; O2SAT 93
[2017-04-03 04:29] VITALS: BP 116/79; PULSE 95; TEMP 36.5; O2SAT 94
[2017-04-03] MEDS ORDERED: IV FLUIDS COMPLETED PRN (05:00)
[2017-04-03 06:42] LABS: BASO % 0.3 %; BASO ABS # 0.02 K/uL (0-0.2); EOS % 2.9 %; EOS ABS # 0.23 K/uL (0-0.5); HEMATOCRIT 40.9 % (37-47); HEMOGLOBIN 13.8 g/dL (12.0-16.0); IG# 0.02 K/uL (0.00-0.02); LYMPH % 26.2 %; LYMPH ABS # 2.08 K/uL (1.2-3.4); MEAN CELL VOLUME 91.9 fL (80-100); MEAN CORPUSCULAR HGB CONC 33.7 g/dl (32-36); MEAN PLATELET VOLUME 10.1 fL (7.4-10.4); MONO ABS # 0.48 K/uL (0.11-0.59); NEUT % 64.3 %; NEUT ABS # 5.12 K/uL (1.4-6.5); PLATELET COUNT 244 K/uL (130-400); RED CELL DISTRIBUTION WIDTH SD 43.8 fL (36.4-46.3); WHITE BLOOD COUNT 7.95 K/uL (4.8-10.8)
--- NOTE | 2017-04-03 07:55 | HISTORY & PHYSICAL EXAMINATION ---
DATE OF ADMISSION: 04/02/2017 PRIMARY CARE DOCTOR. None. CHIEF COMPLAINT: Flu-like symptoms as per records. HISTORY OF PRESENT ILLNESS: History obtained from patient, family, records. Medical history significant for intermittent tobacco abuse. As per records, the last 2 days, the patient noted flu-like symptoms, pounding headache, no blurred vision, intermittent numbness of the arms and legs, which she has had in the last few years. Pounding chest pain, no shortness of breath, no cough symptoms. Patient also complaining of some abdominal discomfort, achy. Constipated last few days. Patient also complaining of bug bite on the right lower abdomen, worried about Lyme disease. As per report, the patient got aggressive towards home health care worker taking care of mother. Patient brought by police to the ER for evaluation. Currently, headache improving, chest pain resolved after analgesics given at the ER. MEDICAL HISTORY: As above. SURGERIES: As above. HOME MEDICATIONS: None. ALLERGIES: No known drug allergies. FAMILY HISTORY: Family history of heart disease. PERSONAL AND SOCIAL HISTORY: Intermittent tobacco abuse, few cigarettes a day. No chronic intake of alcoholic beverages. Unemployed. REVIEW OF SYSTEMS: As per HPI. All 10 systems reviewed. All other ROS negative. PHYSICAL EXAMINATION: VITAL SIGNS: Blood pressure was noted to be 130/80, pulse rate 76, RR 16, temperature 36.9, sats 94 on room air. GENERAL: Noted to be obese, slightly anxious, no respiratory distress. Looks older for stated age. SKIN: Normal color, warm. HEENT: Pale palpebral conjunctivae. No ptosis. Dry mucosa. NECK: Supple. Short. CHEST: Clear to auscultation. No tenderness. HEART: Regular rate and rhythm. No murmur. ABDOMEN: [place] indurated plaque, RLQ; Soft, nontender. EXTREMITIES: No edema. No tenderness. No gross deformities. NEUROLOGIC: Coherent. No gross focality. LABORATORY DATA: Hemoglobin was noted to be 14.7, hematocrit 40, white cells 11.2, platelets 270. Sodium 139, potassium 4.1, chloride 103, CO2 28, BUN 10, creatinine 0.6, glucose 107. Troponin noted to be 0.015. Lyme screen, flu swab negative CT head, no acute pathology. Chest x-ray showed no acute process. CTA: No acute pathology. CT abdomen and pelvis leiomyoma, renal cyst UA clear. Tox screen, alcohol level negative EKG as per my interpretation, normal sinus rhythm, no ischemia. ASSESSMENT: 1. Atypical chest pain, possibly from anxiety, viral illness. 2. Headache secondary to viral illness. 3. Complex renal cyst on CT. 4. Tobacco abuse. 5. Upper extremity/lower extremity numbness likely peripheral neuropathy symptoms Recurrent over the years as per patient/family account 6. Constipation PLAN: Observation PCU 2D echo RE chest pain. Supportive measures for viral illness. Outpatient Urology followup for renal cyst. Bowel regimen PT, OT eval. Patient counseled to stop smoking. Neuropathy workup, outpatient Neurology opinion Home tomorrow morning if 2D echo normal and patient feeling better. DVT prophylaxis, Lovenox subcutaneous DNR as patient wishes. MTDD
[2017-04-03 08:44] VITALS: BP 120/82; PULSE 75; TEMP 36.8; O2SAT 96
[2017-04-03] MEDS ORDERED: DOCUSATE SODIUM/SENNA 50/8.6MG TAB PO SCH (09:00)
[2017-04-03] MEDS ORDERED: ENOXAPARIN 40 MG/0.4 ML SYR SC SCH (09:00)
--- NOTE | 2017-04-03 12:18 | Progress Note ---
Internal Med Progress Note Date of Service: Apr 03, 2017. Provider Documentation: SUBJECTIVE: Seen and examined at bedside States feeling much better today Chest pain, headache, abdominal pain resolved Denies SOB Has chronic tingling/numbness of fingers No other complaints OBJECTIVE: Vital Signs-as noted below Physical Exam: General Appearance:Obese, no apparent distress Head: normocephalic, Atraumatic Eyes: normal inspection, EOMI, PERRL Neck: supple, Trachea midline Respiratory/Chest: Normal breath sounds, CTA Cardiovascular: S1, S2, No murmur Abdomen/GI:Soft, Non tender, Bowel sounds present Extremities/Musculoskelatal:normal inspection, no edema Neurologic/Psych:AAOX3, grossly no focal neurological deficits Skin: normal color, warm Lab data as noted below. ASSESSMENT & PLAN: Atypical Chest pain Likely related to anxiety (Has having court issues per patient) Troponin X 2: Negative EKG: no signs of acute Ischemia CTA: No acute intrathoracic abnormality, No PE, No pathologic adenopathy or lobar airspace consolidation. Chest pain resolved ECHO: * Normal LV chamber size and wall thickness. * Normal LV systolic function, EF 60-65%. * No segmental left ventricular wall motion abnormalities are noted. * Grade I diastolic dysfunction. * No significant valvular pathology. Headache Likely related to anxiety CT head:No acute intracranial abnormality. Incidental finding of renal cyst No hematuria on UA Denies flank pain Follow up with Urology as outpatient Tobacco abuse. 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 Ceballos for primary care at [facility] Office on 04/08/17 at 12:55pm Follow up with your OBGYN (For Uterine Fibroid) and Urologist (For Renal Cyst) as advised Seek immediate medical attention if your symptoms reoccur or worsen Vital Signs: Date Time Temp Pulse Resp B/P (MAP) Pulse Ox O2 Delivery O2 Flow Rate FiO2 04/03/17 12:31 36.7 82 18 115/74 (88) 90 Room Air 04/03/17 08:44 36.8 75 18 120/82 (95) 96 04/03/17 04:29 36.5 95 22 116/79 (91) 94 Room Air 04/03/17 04:00 Room Air 04/02/17 23:59 Room Air 04/02/17 23:48 36.5 86 22 119/77 (91) 93 Room Air 04/02/17 22:02 36.6 104 22 169/97 95 Room Air 04/02/17 21:11 87 16 137/92 96 Room Air 04/02/17 20:00 89 16 139/92 97 Room Air 04/02/17 19:28 97 16 105/77 95 Room Air 04/02/17 18:51 97 16 109/89 94 Room Air 04/02/17 17:44 95 16 126/88 93 Room Air 04/02/17 16:37 36.9 96 16 103/85 94 Room Air Lab Results: Results Past 24 Hours Test 04/02/17 16:51 04/02/17 16:54 04/02/17 16:58 04/02/17 19:55 Range/Units White Blood Count 11.22 4.8-10.8 K/uL Red Blood Count 4.76 4.2-5.4 M/uL Hemoglobin 14.7 12.0-16.0 g/dL Hematocrit 43.0 37-47 % Mean Corpuscular Volume 90.3 80-100 fL Mean Corpuscular Hemoglobin 30.9 25-34 pg Mean Corpuscular Hemoglobin Concent 34.2 32-36 g/dl Platelet Count 273 130-400 K/uL Mean Platelet Volume 10.2 7.4-10.4 fL Neutrophils (%) (Auto) 77.3 % Lymphocytes (%) (Auto) 15.5 % Monocytes (%) (Auto) 5.3 % Eosinophils (%) (Auto) 1.3 % Basophils (%) (Auto) 0.3 % Neutrophils # (Auto) 8.67 1.4-6.5 K/uL Lymphocytes # (Auto) 1.74 1.2-3.4 K/uL Monocytes # (Auto) 0.60 0.11-0.59 K/uL Eosinophils # (Auto) 0.15 0-0.5 K/uL Basophils # (Auto) 0.03 0-0.2 K/uL RDW Standard Deviation 41.9 36.4-46.3 fL RDW Coefficient of Variation 12.7 11.5-14.5 % Immature Granulocyte % (Auto) 0.3 % Immature Granulocyte # (Auto) 0.03 0.00-0.02 K/uL Sodium Level 139 136-145 mmol/L Potassium Level 4.4 3.5-5.1 mmol/L Chloride Level 103 98-107 mmol/L Carbon Dioxide Level 28 21-32 mmol/L Anion Gap 7.0 3-11 mmol/L Blood Urea Nitrogen 10 7-18 mg/dl Creatinine 0.69 0.60-1.20 mg/dl Est Creatinine Clear Calc Drug Dose 110.8 ml/min Estimated GFR () 109.7 Estimated GFR (Non- 94.6 BUN/Creatinine Ratio 14.0 10-20 Random Glucose 107 70-99 mg/dl Calcium Level 9.2 8.5-10.1 mg/dl Magnesium Level 1.9 1.8-2.4 mg/dl Total Bilirubin 0.3 0.2-1 mg/dl Aspartate Amino Transf (AST/SGOT) 12 15-37 U/L Alanine Aminotransferase (ALT/SGPT) 20 12-78 U/L Alkaline Phosphatase 77 45-117 U/L Troponin I < 0.015 0-0.045 ng/ml Total Protein 7.8 6.4-8.2 gm/dl Albumin 4.2 3.4-5.0 gm/dl Globulin 3.6 2.5-4.0 gm/dl Albumin/Globulin Ratio 1.2 0.9-2 Thyroid Stimulating Hormone (TSH) 1.340 0.300-4.500 uIu/ml Salicylates Level 7.2 2.8-20 mg/dl Acetaminophen Level < 2 10-30 ug/ml Ethyl Alcohol mg/dL < 3.0 0-3 mg/dl Lyme Disease IgG Antibody NEG NEG Lyme Disease IgM Antibody NEG NEG Lipase 123 73-393 U/L Influenza Type A Antigen Neg for Influ A NEG Influenza Type B Antigen Neg for Influ B NEG Urine Color YELLOW Urine Appearance CLEAR CLEAR Urine pH 5.5 4.5-7.5 Urine Specific [place] 1.015 1.000-1.030 Urine Protein NEG NEG Urine Glucose (UA) NEG NEG Urine Ketones NEG NEG Urine Occult Blood NEG NEG Urine Nitrite NEG NEG Urine Bilirubin NEG NEG Urine Urobilinogen NEG NEG Urine Leukocyte Esterase NEG NEG Test 1/19/18 20:10 04/03/17 06:19 Range/Units Urine Opiates Screen NEG NEG Urine Methadone, Qualitative NEG NEG Urine Barbiturates NEG NEG Urine Phencyclidine (PCP) Level NEG NEG Ur Amphetamine/Methamphetamine NEG NEG MDMA (Ecstasy) Screen NEG NEG Urine Benzodiazepines Screen NEG NEG Urine Cocaine Metabolite NEG NEG Urine Marijuana (THC) NEG NEG White Blood Count 7.95 4.8-10.8 K/uL Red Blood Count 4.45 4.2-5.4 M/uL Hemoglobin 13.8 12.0-16.0 g/dL Hematocrit 40.9 37-47 % Mean Corpuscular Volume 91.9 80-100 fL Mean Corpuscular Hemoglobin 31.0 25-34 pg Mean Corpuscular Hemoglobin Concent 33.7 32-36 g/dl Platelet Count 244 130-400 K/uL Mean Platelet Volume 10.1 7.4-10.4 fL Neutrophils (%) (Auto) 64.3 % Lymphocytes (%) (Auto) 26.2 % Monocytes (%) (Auto) 6.0 % Eosinophils (%) (Auto) 2.9 % Basophils (%) (Auto) 0.3 % Neutrophils # (Auto) 5.12 1.4-6.5 K/uL Lymphocytes # (Auto) 2.08 1.2-3.4 K/uL Monocytes # (Auto) 0.48 0.11-0.59 K/uL Eosinophils # (Auto) 0.23 0-0.5 K/uL Basophils # (Auto) 0.02 0-0.2 K/uL RDW Standard Deviation 43.8 36.4-46.3 fL RDW Coefficient of Variation 13.0 11.5-14.5 % Immature Granulocyte % (Auto) 0.3 % Immature Granulocyte # (Auto) 0.02 0.00-0.02 K/uL Prothrombin Time 10.6 9.0-12.0 SECONDS Prothromb Time International Ratio 1.0 0.9-1.1 Troponin I < 0.015 0-0.045 ng/ml Vitamin B12 Level 376 211-911 pg/mL Folate 15.48 >5.38 ng/mL
[2017-04-03 12:31] VITALS: BP 115/74; PULSE 82; TEMP 36.7; O2SAT 90
--- NOTE | 2017-04-03 13:36 | ECHOCARDIOGRAM REPORT ---
*NOTICE TO RECEIVING REPUBLICAN AGENCY This information is strictly Confidential and protected under [place] law. [place] law prohibits you from making any further disclosure of this information unless further disclosure is expressly permitted by the written consent of the person to whom it pertains or is authorized by law. A general authorization for the release of medical or other information is not sufficient for this purpose. Hospital accepts no responsibility if the information is made available to any other person, INCLUDING THE PATIENT. Interpretation Summary * Name: GERARD FINE Study Date: 04/03/2017 11:10 AM BP: 116/79 mmHg * Patient Location: .2T\S\S237\S\1 HR: 95 * : 1955 (M/d/yyyy) Gender: Female Height: 66 in * Age: 62 yrs Ethnicity: CA Weight: 224 lb * Ordering Physician: Michael Machado * Performed By: Suly Perez RDCS * * Reason For Study: Chest pain * BSA: 2.1 m2 * -- Conclusions -- * Normal LV chamber size and wall thickness. * Normal LV systolic function, EF 60-65%. * No segmental left ventricular wall motion abnormalities are noted. * Grade I diastolic dysfunction. * No significant valvular pathology. Procedure Details * A complete two-dimensional transthoracic echocardiogram was performed (2D, M-mode, Doppler and color flow Doppler). Left Ventricle * The left ventricle is normal in size. * There is normal left ventricular wall thickness. * Left ventricular systolic function is normal. * No segmental left ventricular wall motion abnormalities are noted. * Ejection Fraction = 60-65%. * The left ventricular wall motion is normal. Right Ventricle * The right ventricular cavity size is normal (basal dimension <4.2 cm in right ventricular apical 4-chamber view). * The right ventricular systolic function is normal as assessed by tricuspid annular plane systolic excursion (TAPSE) (normal >1.5 cm). Atria * The left atrial size is normal. * Right atrial size is normal. * No ASD detected; PFO is not assessed. Mitral Valve * The mitral valve is normal in structure and function. Tricuspid Valve * The tricuspid valve is normal in structure and function. Aortic Valve * The aortic valve is normal in structure and function. Pulmonic Valve * The pulmonary valve is not well seen, but the Doppler examination is normal without significant regurgitation or stenosis. Great Vessels * The aortic root and proximal ascending aorta are normal sized. Pericardium/Pleural * There is no pericardial effusion. Left Ventricular Diastolic Function * Grade I diastolic dysfunction, (abnormal relaxation pattern). MMode 2D Measurements and Calculations IVSd 0.69 cm LVIDd 4.8 cm LVIDs 3.1 cm LVPWd 1.1 cm IVS/LVPW 0.63 FS 35.0 % EDV(Teich) 108.9 ml ESV(Teich) 39.0 ml EF(Teich) 64.1 % EDV(cubed) 112.4 ml ESV(cubed) 30.9 ml EF(cubed) 72.5 % LV mass(C)d 145.9 grams LV mass(C)dI 69.5 grams/m\S\2 SV(Teich) 69.9 ml SI(Teich) 33.3 ml/m\S\2 SV(cubed) 81.5 ml SI(cubed) 38.8 ml/m\S\2 Ao root diam 3.1 cm Ao root area 7.4 cm\S\2 ACS 2.0 cm LA dimension 3.3 cm asc Aorta Diam 3.1 cm LA/Ao 1.1 LVOT diam 2.0 cm LVOT area 3.1 cm\S\2 LVAd ap4 28.2 cm\S\2 LVLd ap4 7.8 cm EDV(MOD-sp4) 84.0 ml EDV(sp4-el) 87.1 ml LVAs ap4 13.9 cm\S\2 LVLs ap4 6.0 cm ESV(MOD-sp4) 28.5 ml ESV(sp4-el) 27.5 ml EF(MOD-sp4) 66.1 % EF(sp4-el) 68.4 % LVAd ap2 26.6 cm\S\2 LVLd ap2 7.2 cm EDV(MOD-sp2) 83.7 ml EDV(sp2-el) 83.7 ml LVAs ap2 14.5 cm\S\2 LVLs ap2 6.4 cm ESV(MOD-sp2) 28.5 ml ESV(sp2-el) 27.9 ml EF(MOD-sp2) 65.9 % EF(sp2-el) 66.6 % LVLd %diff -8.39 % EDV(MOD-bp) 87.2 ml LVLs %diff 6.2 % ESV(MOD-bp) 29.5 ml EF(MOD-bp) 66.2 % SV(MOD-sp4) 55.5 ml SI(MOD-sp4) 26.5 ml/m\S\2 SV(MOD-sp2) 55.2 ml SI(MOD-sp2) 26.3 ml/m\S\2 SV(MOD-bp) 57.8 ml SI(MOD-bp) 27.5 ml/m\S\2 SV(sp4-el) 59.6 ml SI(sp4-el) 28.4 ml/m\S\2 SV(sp2-el) 55.8 ml SI(sp2-el) 26.6 ml/m\S\2 Doppler Measurements and Calculations MV A max bonita 109.6 cm/sec MV dec time 0.20 sec Ao V2 max 137.1 cm/sec Ao max PG 7.5 mmHg Ao max PG (full) 2.3 mmHg MALU(V,A) 2.6 cm\S\2 MALU(V,D) 2.6 cm\S\2 LV V1 max PG 5.2 mmHg LV V1 max 114.0 cm/sec PA V2 max 105.9 cm/sec PA max PG 4.5 mmHg PA acc slope 475.3 cm/sec\S\2 PA acc time 0.14 sec PA pr(Accel) 15.6 mmHg
[2017-04-03] MEDS ORDERED: MRLP17X PO (14:33)
[2017-04-03] MEDS ORDERED: SENN8.6T7 PO (14:33)
--- NOTE | 2017-04-03 14:36 | Discharge Summary ---
Discharge Summary Date of Service Apr 03, 2017. Discharge Summary Admission Date: Apr 02, 2017 at 22:04 Discharge Date: Apr 03, 2017 Discharge Disposition: Home with services Principal Diagnosis: Atypical Chest pain Procedures: CT ABD: 1. No acute intra-abdominal or intrapelvic abnormality identified. 2. 5.1 x 5.5 cm ovoid lesion of the left aspect of the uterus suggests uterine leiomyoma. 3. Intermediate attenuating ovoid 2.5 cm lesion of the medial interpolar left kidney may reflect a mildly complex renal cyst and could be further characterized with a renal ultrasound. 4. Normal appendix. CTA: 1. No acute intrathoracic abnormality identified, specifically no acute aortic pathology or evidence of pulmonary thromboembolic disease. Study is limited as above secondary to contrast bolus timing. 2. No pathologic adenopathy or lobar airspace consolidation. CT head: :No acute intracranial abnormality. Consultations: None Pending Studies/Follow-Up: Follow up with Dr. Ceballos for primary care at [facility] on 04/08/17 at 12:55pm Follow up with your OBGYN (For Uterine Fibroid) and Urologist (For Renal Cyst) as advised Seek immediate medical attention if your symptoms reoccur or worsen Medication Reconciliation New Medications: Polyethylene (Miralax) 17 Gm Pow 17 GM PO DAILY PRN for Constipation for 7 Days, #7 EA Sennosides-Docusate Sodium (Senokot S) 1 Tab Tab 1 TAB PO DAILY for 7 Days, #7 TAB Admission Information HPI (per Admitting provider): CHIEF COMPLAINT: Flu-like symptoms as per records. HISTORY OF PRESENT ILLNESS: History obtained from patient, family, records. Medical history significant for intermittent tobacco abuse. As per records, the last 2 days, the patient noted flu-like symptoms, pounding headache, no blurred vision, intermittent numbness of the arms and legs, which she has had in the last few years. Pounding chest pain, no shortness of breath, no cough symptoms. Patient also complaining of some abdominal discomfort, achy. Constipated last few days. Patient also complaining of bug bite on the right lower abdomen, worried about Lyme disease. As per report, the patient got aggressive towards home health care worker taking care of mother. Patient brought by police to the ER for evaluation. Currently, headache improving, chest pain resolved after analgesics given at the ER. Physical Exam (per Admitting): PHYSICAL EXAMINATION: VITAL SIGNS: Blood pressure was noted to be 130/80, pulse rate 76, RR 16, temperature 36.9, sats 94 on room air. GENERAL: Noted to be obese, slightly anxious, no respiratory distress. Looks older for stated age. SKIN: Normal color, warm. HEENT: Pale palpebral conjunctivae. No ptosis. Dry mucosa. NECK: Supple. Short. CHEST: Clear to auscultation. No tenderness. HEART: Regular rate and rhythm. No murmur. ABDOMEN: [place] indurated plaque, RLQ; Soft, nontender. EXTREMITIES: No edema. No tenderness. No gross deformities. NEUROLOGIC: Coherent. No gross focality. Hospital Course Atypical Chest pain Likely related to anxiety (Has having court issues per patient) Troponin X 2: Negative EKG: no signs of acute Ischemia CTA: No acute intrathoracic abnormality, No PE, No pathologic adenopathy or lobar airspace consolidation. Chest pain resolved ECHO: * Normal LV chamber size and wall thickness. * Normal LV systolic function, EF 60-65%. * No segmental left ventricular wall motion abnormalities are noted. * Grade I diastolic dysfunction. * No significant valvular pathology. Headache Likely related to anxiety CT head:No acute intracranial abnormality. Incidental finding of renal cyst No hematuria on UA Denies flank pain Follow up with Urology as outpatient Tobacco abuse. 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 Ceballos for primary care at [facility] Office on 04/08/17 at 12:55pm Follow up with your OBGYN (For Uterine Fibroid) and Urologist (For Renal Cyst) as advised Seek immediate medical attention if your symptoms reoccur or worsen Total time spent on discharge = This includes examination of the patient, discharge planning, medication reconciliation, and communication with other providers. Discharge Instructions Discharge Instructions Date of Service Apr 03, 2017. Admission Reason for Admission: Chest Pain Discharge Discharge Diagnosis / Problem: Atypical Chest pain Discharge Goals Goal(s): Decrease discomfort, Improve function Activity Recommendations Activity Limitations: resume your previous activity Exercise/Sports Limitations: as tolerated . Instructions / Follow-Up Instructions / Follow-Up Follow up with Dr. Ceballos for primary care at [facility] on 04/08/17 at 12:55pm Follow up with your OBGYN (For Uterine Fibroid) and Urologist (For Renal Cyst) as advised Seek immediate medical attention if your symptoms reoccur or worsen Current Hospital Diet Patient's current hospital diet: AHA Diet (Heart Healthy) Discharge Diet Recommended Diet: AHA Diet (Heart Healthy) Pending Studies Studies pending at discharge: no Medical Emergencies . Who to Call and When: Medical Emergencies: If at any time you feel your situation is an emergency, please call 911 immediately. . Non-Emergent Contact Non-Emergency issues call your: Primary Care Provider Call Non-Emergent contact if: you have a fever, your pain is not controlled, your pain is worsening, your pain is unusual for you, your pain is concerning you, you have any medication questions Seek immediate medical attention if your symptoms reoccur or worsen . . "Provider Documentation" section prepared by Sanford Mccord. . VTE Core Measure Inpt VTE Proph given/why not?: Enoxaparin (Lovenox)SQ <Electronically signed by Sanford Mccord MD> Signed: 04/03/17 1361 Signed: The status of this report is Signed * If report status is Draft, the document has not been finalized by the responsible provider.
[2017-04-03 16:04] VITALS: BP 122/81; PULSE 79; TEMP 36.6; O2SAT 92
[2017-04-03 16:22] VITALS: BP 122/81; PULSE 79; TEMP 36.6; O2SAT 92
== END 2017-04-03 17:20 | disposition home or self-care (01) ==
LOC: EDBD 15:40 → C.EDA 15:41 → ENRESERV 21:24 → C.2T 22:04
PROVIDERS: ADMIT Internal Medicine; ATTEND Internal Medicine
DX: R07.89 Other chest pain (principal); R51 Headache; K59.00 Constipation, unspecified; R20.0 Anesthesia of skin; N28.1 Cyst of kidney, acquired; D25.9 Leiomyoma of uterus, unspecified; F17.210 Nicotine dependence, cigarettes, uncomplicated; Z66 Do not resuscitate; Z82.49 Family history of ischemic heart disease and other diseases of the circulatory system; Z83.6 Family history of other diseases of the respiratory system

== ENCOUNTER 2017-04-11 07:51 | Emergency (ER) | payer OTHER ==
[~2017-04-11] VITALS: Ht 170.2 cm; Wt 103.0 kg
[~2017-04-11 07:51] MED LIST changes: -ACET-1256 PO; -ASPI325T45 PO; +MRLP17X PO; +SENN8.6T7 PO
[2017-04-11 08:10] VITALS: TEMP 36.6; Ht 170.2 cm; Wt 103.0 kg
--- NOTE | 2017-04-11 08:20 | EMERGENCY ROOM VISIT NOTE ---
History Report prepared by Juany: Pierce Woodall Under the Supervision of: Dr. Evangeilsta Londono D.O. First contact with patient: 08:11 Chief Complaint: ILLNESS Stated Complaint: DIZZINESS/CHEST PAIN/ARM NUMBNESS History of Present Illness The patient is a 62 year old female who presents to the Emergency Room with complaints of numbness in her hands, arms, and legs that occurred just prior to arrival. She complains of a pounding headache, chest pain, and nausea. She states she had the flu last week and has some recent bug bites. Of note, she states this feels similar to her previous episodes. 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 A total of 10 systems reviewed and were otherwise negative. Past Medical & Surgical Medical Problems: (1) Altered mental status (2) Chest pain (3) No Known Active Medical Problems Family History FH: HTN (hypertension) FH: cancer FH: diabetes mellitus FH: heart disease FH: lung disease Social History Smoking Status: Never Smoker Alcohol Use: occasionally Drug Use: none Housing Status: lives with family Occupation Status: employed Current/Historical Medications Scheduled Aspirin (Aspirin), 81 MG PO DAILY Allergies Coded Allergies: No Known Allergies (Unverified , 04/11/17) Physical Exam Vital Signs Date Time Temp Pulse Resp B/P (MAP) Pulse Ox O2 Delivery O2 Flow Rate FiO2 04/11/17 10:10 67 16 126/60 96 Room Air 04/11/17 09:17 67 04/11/17 08:10 36.6 82 16 137/111 96 Room Air Physical Exam CONSTITUTIONAL/VITAL SIGNS: Reviewed / noted above. GENERAL: Non-toxic in appearance. INTEGUMENTARY: Warm, dry, and [place]. HEAD: Normocephalic. EYES: without scleral icterus or trauma. ENT/OROPHARYNX: clear and moist. LYMPHADENOPATHY/NECK: Is supple without lymphadenopathy or meningismus. RESPIRATORY: Lungs clear and equal. CARDIOVASCULAR: Regular rate and rhythm. GI/ABDOMEN: Soft and nontender. No organomegaly or pulsatile mass. No rebound or guarding. Normal bowel sounds. EXTREMITIES: Warm and well perfused. BACK: No CVA tenderness. NEUROLOGICAL: Intact without focal deficits. PSYCHIATRIC: normal affect. MUSCULOSKELETAL: Normally developed with good muscle tone. Medical Decision & Procedures ER Provider Diagnostic Interpretation: Radiology results as stated below per my review and radiologist interpretation: CHEST ONE VIEW PORTABLE CLINICAL HISTORY: Altered mental status. Weakness. COMPARISON STUDY: Chest radiograph and chest CT April 02, 2017. FINDINGS: Lung volumes are normal. No pneumothorax or pleural effusion is noted. There is no consolidation to suggest pneumonia. There is no evidence for pulmonary edema. Cardiomediastinal silhouette is stable. IMPRESSION: No acute cardiopulmonary findings. Electronically signed by: Etienne Hernandez M.D. 04/11/2017 8:30 AM Dictated Date/Time: 04/11/2017 8:29 AM Laboratory Results 04/11/17 08:15 Red Blood Count 4.60, Mean Corpuscular Volume 91.1, Mean Corpuscular Hemoglobin 31.1, Mean Corpuscular Hemoglobin Concent 34.1, Mean Platelet Volume 9.9, Neutrophils (%) (Auto) 65.8, Lymphocytes (%) (Auto) 24.5, Monocytes (%) (Auto) 5.8, Eosinophils (%) (Auto) 3.6, Basophils (%) (Auto) 0.2, Neutrophils # (Auto) 5.34, Lymphocytes # (Auto) 1.99, Monocytes # (Auto) 0.47, Eosinophils # (Auto) 0.29, Basophils # (Auto) 0.02 04/11/17 08:15 Test 04/11/17 08:15 White Blood Count 8.12 K/uL (4.8-10.8) Red Blood Count 4.60 M/uL (4.2-5.4) Hemoglobin 14.3 g/dL (12.0-16.0) Hematocrit 41.9 % (37-47) Mean Corpuscular Volume 91.1 fL (80-100) Mean Corpuscular Hemoglobin 31.1 pg (25-34) Mean Corpuscular Hemoglobin Concent 34.1 g/dl (32-36) Platelet Count 254 K/uL (130-400) Mean Platelet Volume 9.9 fL (7.4-10.4) Neutrophils (%) (Auto) 65.8 % Lymphocytes (%) (Auto) 24.5 % Monocytes (%) (Auto) 5.8 % Eosinophils (%) (Auto) 3.6 % Basophils (%) (Auto) 0.2 % Neutrophils # (Auto) 5.34 K/uL (1.4-6.5) Lymphocytes # (Auto) 1.99 K/uL (1.2-3.4) Monocytes # (Auto) 0.47 K/uL (0.11-0.59) Eosinophils # (Auto) 0.29 K/uL (0-0.5) Basophils # (Auto) 0.02 K/uL (0-0.2) RDW Standard Deviation 42.2 fL (36.4-46.3) RDW Coefficient of Variation 12.8 % (11.5-14.5) Immature Granulocyte % (Auto) 0.1 % Immature Granulocyte # (Auto) 0.01 K/uL (0.00-0.02) Prothrombin Time 10.4 SECONDS (9.0-12.0) Prothromb Time International Ratio 1.0 (0.9-1.1) Activated Partial Thromboplast Time 26.8 SECONDS (21.0-31.0) Partial Thromboplastin Ratio 1.0 Anion Gap 5.0 mmol/L (3-11) Est Creatinine Clear Calc Drug Dose 91.1 ml/min Estimated GFR () 91.5 Estimated GFR (Non- 78.9 BUN/Creatinine Ratio 9.9 (10-20) Calcium Level 9.3 mg/dl (8.5-10.1) Magnesium Level 1.9 mg/dl (1.8-2.4) Total Bilirubin 0.3 mg/dl (0.2-1) Direct Bilirubin < 0.1 mg/dl (0-0.2) Aspartate Amino Transf (AST/SGOT) 12 U/L (15-37) Alanine Aminotransferase (ALT/SGPT) 21 U/L (12-78) Alkaline Phosphatase 76 U/L (45-117) Total Creatine Kinase 64 U/L (26-192) Creatine Kinase MB 1.2 ng/ml (0.5-3.6) Creatine Kinase MB Ratio 1.9 (0-3.0) Troponin I < 0.015 ng/ml (0-0.045) Total Protein 7.8 gm/dl (6.4-8.2) Albumin 4.1 gm/dl (3.4-5.0) Lipase 154 U/L (73-393) Thyroid Stimulating Hormone (TSH) 2.800 uIu/ml (0.300-4.500) Laboratory results as stated above per my review. Medications Administered Medications (Trade) Dose Ordered Sig/Luis Route Start Time Stop Time Status Last Admin Dose Admin Acetaminophen (Tylenol Tab) 1,000 mg NOW STAT PO 04/11/17 08:45 04/11/17 08:46 DC 04/11/17 09:02 1,000 MG ECG Indication: chest pain Rate (beats per minute): 72 Rhythm: normal sinus Findings: no ectopy, other (no acute injury) ED Course 0811: Previous medical records were reviewed. The patient was evaluated in room A2. A complete history and physical examination was performed. 0845: Tylenol Tab 1,000 mg PO. 1002: On reevaluation, the patient is doing well. I discussed the results and findings with the patient. She verbalized agreement of the treatment plan. She was discharged home. Medical Decision Differential includes acute coronary syndrome, myocardial infarction, CVA, TIA, anemia, infection, pneumonia, UTI, pyelonephritis, poor nutrition, dehydration, electrolyte disturbance,hypoglycemia. This is a 62-year-old female who presents to the ED with a chief complaint of numbness in her feet, hands and arms. She also reported being lightheaded and having a headache. The patient states that she had similar symptoms last week for which she was admitted and worked up. She was discharged with a diagnosis of atypical chest pain. The patient is currently in no distress. She is awake , alert and oriented. Her exam is unremarkable. She has no focal weakness. She does not appear to be in any distress. Initial heart rate was documented as slightly tachycardic with a heart rate of 117. When I saw her it was around 100. The patient's blood work reveals a normal CBC, unremarkable chemistry panel, troponin was negative, EKG shows a normal sinus rhythm at a rate of 72 and a chest x-ray did not show acute process. The patient was given Tylenol for headache. She was reassessed. She was feeling better. She feels that her symptoms might be stress related. He is felt to be stable for discharge and outpatient follow-up. Medication Reconcilliation Current Medication List: was personally reviewed by me Blood Pressure Screening Patient's blood pressure: Normal blood pressure Blood pressure disposition: Did not require urgent referral Impression Primary Impression: Stress reaction Additional Impression: Paresthesia Scribe Attestation The scribe's documentation has been prepared under my direction and personally reviewed by me in its entirety. I confirm that the note above accurately reflects all work, treatment, procedures, and medical decision making performed by me. Departure Information Dispostion Home / Self-Care Referrals No Doctor, Assigned (PCP) Patient Instructions My [facility] Additional Instructions Follow-up with your doctor for further care and evaluation in 1-2 days. Return to the emergency department for worsening or new symptoms or any concerns. You have been examined and treated today on an emergency basis only. This is not a substitute for, or an effort to provide, complete comprehensive medical care. It is impossible to recognize and treat all injuries or illnesses in a single emergency department visit. It is therefore important that you follow up closely with your doctor. Call as soon as possible for an appointment. Problem Qualifiers
[2017-04-11 08:30] LABS: BASO % 0.2 %; BASO ABS # 0.02 K/uL (0-0.2); EOS % 3.6 %; EOS ABS # 0.29 K/uL (0-0.5); HEMATOCRIT 41.9 % (37-47); HEMOGLOBIN 14.3 g/dL (12.0-16.0); IG# 0.01 K/uL (0.00-0.02); LYMPH % 24.5 %; LYMPH ABS # 1.99 K/uL (1.2-3.4); MEAN CELL VOLUME 91.1 fL (80-100); MEAN CORPUSCULAR HEMOGLOBIN 31.1 pg (25-34); MEAN CORPUSCULAR HGB CONC 34.1 g/dl (32-36); MEAN PLATELET VOLUME 9.9 fL (7.4-10.4); MONO % 5.8 %; MONO ABS # 0.47 K/uL (0.11-0.59); NEUT % 65.8 %; NEUT ABS # 5.34 K/uL (1.4-6.5); PLATELET COUNT 254 K/uL (130-400); RED CELL DISTRIBUTION WIDTH CV 12.8 % (11.5-14.5); RED CELL DISTRIBUTION WIDTH SD 42.2 fL (36.4-46.3); WHITE BLOOD COUNT 8.12 K/uL (4.8-10.8)
[2017-04-11] MEDS ORDERED: ASPI1TAB83 PO (08:30)
--- NOTE | 2017-04-11 08:31 | DIAGNOSTIC IMAGING REPORT ---
CHEST ONE VIEW PORTABLE CLINICAL HISTORY: Altered mental status. Weakness. COMPARISON STUDY: Chest radiograph and chest CT April 02, 2017. FINDINGS: Lung volumes are normal. No pneumothorax or pleural effusion is noted. There is no consolidation to suggest pneumonia. There is no evidence for pulmonary edema. Cardiomediastinal silhouette is stable. IMPRESSION: No acute cardiopulmonary findings. Electronically signed by: Etienne Hernandez M.D. 04/11/2017 8:30 AM Dictated Date/Time: 04/11/2017 8:29 AM
[2017-04-11 08:38] LABS: PTT PATIENT 26.8 SECONDS (21.0-31.0)
[2017-04-11] MEDS ORDERED: ACETAMINOPHEN 500 MG TAB PO STA (08:45)
[2017-04-11 08:47] LABS: ALBUMIN 4.1 gm/dl (3.4-5.0); ALT/SGPT 21 U/L (12-78); BLOOD UREA NITROGEN 8 mg/dl (7-18); CALCIUM 9.3 mg/dl (8.5-10.1); CARBON DIOXIDE 30 mmol/L (21-32); CREATININE 0.81 mg/dl (0.60-1.20); GLUCOSE 94 mg/dl (70-99); LIPASE 154 U/L (73-393); POTASSIUM 4.3 mmol/L (3.5-5.1); SODIUM 139 mmol/L (136-145)
[2017-04-11 08:56] LABS: ALKALINE PHOSPHATASE 76 U/L (45-117); AST/SGOT 12 U/L (15-37); CKMB 1.2 ng/ml (0.5-3.6); TOTAL PROTEIN 7.8 gm/dl (6.4-8.2)
[2017-04-11 11:31] VITALS: BP 155/89; PULSE 70; O2SAT 96
== END 2017-04-11 11:33 | disposition home or self-care (01) ==
LOC: EDBD 07:51 → C.EDA 07:54
DX: F43.9 Reaction to severe stress, unspecified (principal); R20.2 Paresthesia of skin; Z79.82 Long term (current) use of aspirin; Z82.49 Family history of ischemic heart disease and other diseases of the circulatory system; Z80.9 Family history of malignant neoplasm, unspecified; Z83.3 Family history of diabetes mellitus

== ENCOUNTER 2017-06-18 08:58 | Emergency (ER) | payer OTHER ==
[~2017-06-18] VITALS: Ht 167.6 cm; Wt 111.1 kg
[~2017-06-18 08:58] MED LIST changes: +ASPI1TAB83 PO; -MRLP17X PO; -SENN8.6T7 PO
[2017-06-18 09:07] VITALS: TEMP 36.7; Ht 167.6 cm; Wt 111.1 kg
[2017-06-18] MEDS ORDERED: EYED (09:28)
[2017-06-18] MEDS ORDERED: ASPI325T39 PO (09:28)
[2017-06-18 10:24] LABS: BASO % 0.3 %; BASO ABS # 0.03 K/uL (0-0.2); EOS % 2.8 %; EOS ABS # 0.25 K/uL (0-0.5); HEMATOCRIT 42.6 % (37-47); HEMOGLOBIN 15.2 g/dL (12.0-16.0); IG# 0.02 K/uL (0.00-0.02); LYMPH % 24.4 %; LYMPH ABS # 2.18 K/uL (1.2-3.4); MEAN CELL VOLUME 92.4 fL (80-100); MEAN CORPUSCULAR HGB CONC 35.7 g/dl (32-36); MEAN PLATELET VOLUME 10.2 fL (7.4-10.4); MONO % 3.8 %; MONO ABS # 0.34 K/uL (0.11-0.59); NEUT % 68.5 %; NEUT ABS # 6.12 K/uL (1.4-6.5); PLATELET COUNT 266 K/uL (130-400); RED CELL DISTRIBUTION WIDTH CV 13.3 % (11.5-14.5); RED CELL DISTRIBUTION WIDTH SD 44.7 fL (36.4-46.3); WHITE BLOOD COUNT 8.94 K/uL (4.8-10.8)
[2017-06-18 10:33] LABS: PTT PATIENT 26.6 SECONDS (21.0-31.0)
[2017-06-18 10:39] LABS: ALBUMIN 4.6 gm/dl (3.4-5.0); CALCIUM 9.1 mg/dl (8.5-10.1); CREATININE 0.8 mg/dl (0.60-1.20); POTASSIUM 4.9 mmol/L (3.5-5.1)
[2017-06-18 10:50] LABS: TOTAL PROTEIN 8.2 gm/dl (6.4-8.2)
--- NOTE | 2017-06-18 11:02 | DIAGNOSTIC IMAGING REPORT ---
CT OF THE HEAD WITHOUT CONTRAST CLINICAL HISTORY: blurred vision COMPARISON STUDY: Head CT April 02, 2017. CT DOSE: 537.48 mGy.cm TECHNIQUE: Helical axial images of the head were obtained without IV contrast. Automated exposure control was utilized for the study. A dose lowering technique was utilized adhering to the principles of ALARA. FINDINGS: No acute intracranial hemorrhage, midline shift or mass effect is present. Ventricular system is normal. Basilar cisterns are patent. There are nodular axial collections. Benson-white differentiation is maintained. There are no findings to suggest acute dural sinus thrombosis or acute territorial infarct. There are no significant calvarial abnormalities. IMPRESSION: No acute intracranial findings. Electronically signed by: Etienne Hernandez M.D. 06/18/2017 11:00 AM Dictated Date/Time: 06/18/2017 10:58 AM
[2017-06-18 11:06] VITALS: BP 127/85; PULSE 75; O2SAT 95
[2017-06-18] MEDS ORDERED: ARTIFICIAL TEARS OP SOLN OP STA (12:14)
--- NOTE | 2017-06-18 12:16 | EMERGENCY ROOM VISIT NOTE ---
History First contact with patient: 09:38 Chief Complaint: EYE ASSESSMENT Stated Complaint: EYES History of Present Illness The patient is a 62 year old female who presents to the Emergency Room via private vehicle with complaints of "eyes". The patient states that she has been experiencing blurred vision for the past few weeks but notes that it has been about 1-2 months. She states that she has had a headache since mid May. Light sensitivity for years. Visual change occurred 1.5 years ago. She denies any follow-up for eyes. She was seen at [facility], and told to use warm compresses and astringent eyedrops. She also states that she had a tick bite back on Wednesday which was removed. She states that she has had previous testing for Lyme disease just before the holiday. She states that she smokes a gets couple times a week, and occasional alcohol use. No drug use. She states that there is a family history of blindness early in life, diabetes and hypertension. Review of Systems A complete 10-point Review of Systems was discussed with the patient, with pertinent positives and negatives listed in the History of Present Illness. All remaining Review of Systems questions can be considered negative unless otherwise specified. Past Medical/Surgical History Medical Problems: (1) Altered mental status (2) Chest pain (3) No Known Active Medical Problems Family History FH: HTN (hypertension) FH: cancer FH: diabetes mellitus FH: heart disease FH: lung disease Social History Smoking Status: Current Some Day Smoker Alcohol Use: occasionally Drug Use: none Housing Status: lives with family Occupation Status: employed Current/Historical Medications Scheduled Aspirin (Aspirin Ec), 325 MG PO [id number] Miscellaneous Medications Eye Drops (Eye Drops) Physical Exam Vital Signs Date Time Temp Pulse Resp B/P (MAP) Pulse Ox O2 Delivery O2 Flow Rate FiO2 06/18/17 11:06 75 20 127/85 95 06/18/17 09:07 36.7 75 18 138/79 95 Room Air Right Eye Acuity: 20/30 Left Eye Acuity: 20/20 Physical Exam VITAL SIGNS - Vital signs and nursing notes were reviewed. Stable. Hypertensive. GENERAL -62-year-old female appearing her stated age who is in no acute distress. Communicates well with provider and answers questions appropriately. SKIN - Without rashes. No meningeal petechial rash. Negative Polo sign. HEAD - NC/AT. EYES - PERRL with EOMI bilaterally. Sclera anicteric. There is mild erythema to the eyes. No periorbital edema. No periorbital erythema. No rashes. EARS - No deformities of external structures noted on gross examination bilaterally. External auditory canals without discharge or otorrhea. Tympanic membranes pearly benson without retraction or bulging. No fluid or purulent material visualized behind the TM. Handle of malleus, umbo, cone of light, pars tensa/flaccid all easily visualized. NOSE - Midline and without cyanosis. No epistaxis or purulent drainage noted. Septum midline without deviation or septal hematoma noted. MOUTH/OROPHARYNX - Without perioral cyanosis. Buccal mucosa pink and moist and without leukoplakia. Tongue midline with equal elevation of palate bilaterally. No tonsillar hypertrophy, erythema, or exudates noted. Fair dentition noted. NECK - Neck with FROM. Supple to palpation. No lymphadenopathy noted. No nuchal rigidity. LUNGS - Chest wall symmetric without accessory muscle use, intercostals retractions, or central cyanosis. Normal vesicular breath sounds CTA B/L. No wheezes, rales, or rhonchi appreciated. CARDIAC - RRR with S1/S2. No murmur, rubs, or gallops appreciated. EXTREMITIES - +5/5 strength noted in UE/LE bilaterally. NEUROLOGIC - Cranial nerves II through XII grossly intact. Sensory intact to light touch throughout. PSYCH - A&O, and cooperates fully with examiner. Pt is very pleasant and interacts well with examiner. Slit Lamp Examination was performed of the bilateral eye(s). Alcaine drops were applied to the affected eye(s) for proper anesthetization. The affected eye(s) were stained with Fluorescein stain to precipitate adequate visualization of any conjunctival/scleral excoriations or ulcers. The patient's face was comfortably rested on the chin guard of the slit lamp apparatus. The lights were dimmed and the affected eye(s) were thoroughly examined under microscopy using the blue light. No uptake was present within the eyes. Additionally, the eye(s) were examined under microscopy using the regular light. Close examination revealed normal slit-lamp exam. Patient tolerated the procedure well and no complications were met. An Automated Tonometer was utilized to obtain bilateral orbital pressures. The pressures in the LEFT eye were found to be 13, 13 with an average of 13. The pressures in the RIGHT eye were found to be 17, 19 with an average of 18. Patient tolerated the procedure well and no complications were met. Medical Decision & Procedures ER Provider Diagnostic Interpretation: CT OF THE HEAD WITHOUT CONTRAST CLINICAL HISTORY: blurred vision COMPARISON STUDY: Head CT April 02, 2017. CT DOSE: 537.48 mGy.cm TECHNIQUE: Helical axial images of the head were obtained without IV contrast. Automated exposure control was utilized for the study. A dose lowering technique was utilized adhering to the principles of ALARA. FINDINGS: No acute intracranial hemorrhage, midline shift or mass effect is present. Ventricular system is normal. Basilar cisterns are patent. There are nodular axial collections. Benson-white differentiation is maintained. There are no findings to suggest acute dural sinus thrombosis or acute territorial infarct. There are no significant calvarial abnormalities. IMPRESSION: No acute intracranial findings. Electronically signed by: Etienne Hernandez M.D. 06/18/2017 11:00 AM Dictated Date/Time: 06/18/2017 10:58 AM Laboratory Results 06/18/17 10:15 Red Blood Count 4.61, Mean Corpuscular Volume 92.4, Mean Corpuscular Hemoglobin 33.0, Mean Corpuscular Hemoglobin Concent 35.7, Mean Platelet Volume 10.2, Neutrophils (%) (Auto) 68.5, Lymphocytes (%) (Auto) 24.4, Monocytes (%) (Auto) 3.8, Eosinophils (%) (Auto) 2.8, Basophils (%) (Auto) 0.3, Neutrophils # (Auto) 6.12, Lymphocytes # (Auto) 2.18, Monocytes # (Auto) 0.34, Eosinophils # (Auto) 0.25, Basophils # (Auto) 0.03 06/18/17 10:15 Test 06/18/17 10:15 White Blood Count 8.94 K/uL (4.8-10.8) Red Blood Count 4.61 M/uL (4.2-5.4) Hemoglobin 15.2 g/dL (12.0-16.0) Hematocrit 42.6 % (37-47) Mean Corpuscular Volume 92.4 fL (80-100) Mean Corpuscular Hemoglobin 33.0 pg (25-34) Mean Corpuscular Hemoglobin Concent 35.7 g/dl (32-36) Platelet Count 266 K/uL (130-400) Mean Platelet Volume 10.2 fL (7.4-10.4) Neutrophils (%) (Auto) 68.5 % Lymphocytes (%) (Auto) 24.4 % Monocytes (%) (Auto) 3.8 % Eosinophils (%) (Auto) 2.8 % Basophils (%) (Auto) 0.3 % Neutrophils # (Auto) 6.12 K/uL (1.4-6.5) Lymphocytes # (Auto) 2.18 K/uL (1.2-3.4) Monocytes # (Auto) 0.34 K/uL (0.11-0.59) Eosinophils # (Auto) 0.25 K/uL (0-0.5) Basophils # (Auto) 0.03 K/uL (0-0.2) RDW Standard Deviation 44.7 fL (36.4-46.3) RDW Coefficient of Variation 13.3 % (11.5-14.5) Immature Granulocyte % (Auto) 0.2 % Immature Granulocyte # (Auto) 0.02 K/uL (0.00-0.02) Prothrombin Time 10.0 SECONDS (9.0-12.0) Prothromb Time International Ratio 1.0 (0.9-1.1) Activated Partial Thromboplast Time 26.6 SECONDS (21.0-31.0) Partial Thromboplastin Ratio 1.0 Anion Gap 6.0 mmol/L (3-11) Est Creatinine Clear Calc Drug Dose 94.4 ml/min Estimated GFR () 92.9 Estimated GFR (Non- 80.1 BUN/Creatinine Ratio 11.5 (10-20) Calcium Level 9.1 mg/dl (8.5-10.1) Magnesium Level 2.1 mg/dl (1.8-2.4) Total Bilirubin 0.4 mg/dl (0.2-1) Aspartate Amino Transf (AST/SGOT) 15 U/L (15-37) Alanine Aminotransferase (ALT/SGPT) 23 U/L (12-78) Alkaline Phosphatase 81 U/L (45-117) Total Protein 8.2 gm/dl (6.4-8.2) Albumin 4.6 gm/dl (3.4-5.0) Globulin 3.6 gm/dl (2.5-4.0) Albumin/Globulin Ratio 1.3 (0.9-2) Thyroid Stimulating Hormone (TSH) 8.220 uIu/ml (0.300-4.500) Free Thyroxine 0.76 ng/dl (0.80-1.60) Lyme Disease IgG Antibody NEG (NEG) Lyme Disease IgM Antibody NEG (NEG) Medical Decision Patient was seen and evaluated as above in room C1. She presents to us today with blurred vision times few weeks/possibly a few months, headache since mid May, as well as visual changes over the past year and a half. Review was performed of nursing notes and vital signs. After obtaining a thorough history and physical examination the above work up was performed. CT the head was obtained and found to be negative. This was obtained secondary to her blurred vision complaint. Her slit-lamp was negative. Her pressures were negative for acute process. Blood work was obtained and no significant leukocytosis, anemia , coagulopathy, or metabolic abnormality noted. Patient TSH is abnormal at 8.26 , with free T4 being low at 0.76. Lyme testing negative. When I went to reevaluate the patient she was found in the hallway preparing to leave. It was noted that he must been a misunderstanding and that she thought she was discharged. She was escorted back to her room noting that I would return shortly with her paperwork/discharge information. I went to go check on the patient and she was nowhere to be found. I suspect that she had a left again thinking that she was discharged. She was alert and oriented. I suspect this again likely to be secondary to misunderstanding. Case was discussed with the attending physician. In the evaluation and treatment of this patient, the following differential diagnoses were considered: Corneal Abrasion, Conjunctivitis, Eye Contusion, Globe Injury, Orbital Floor Injury (Blowout Fracture), Corneal Ulcer, Keratitis , Herpes Zoster Opthalmic, Blepharitis, Orbital Cellulitis, Iritis, Scleritis/ Episcleritis, Uveitis, Temporal Arteritis, Subconjunctival Hemorrhage. I did call the patient back on June 19, 2017 as the patient had left without receiving discharge instructions. The initial call was placed and her mother answered. Patient was not able to be reached at that time. I then called back around 6:25 PM. I spoke with the patient's mother who is able to relay the information to the patient nearby. The patient is to follow with her family doctor as well as ophthalmology. She is to have her thyroid checked. They note that because she was not able to retrieve her paperwork, somebody will stop by and retrieve this. They were educated upon worrisome symptoms which to return. Impression Primary Impression: Blurry vision, bilateral Departure Information Dispostion Home / Self-Care Condition GOOD Referrals Kevin Ceballos D.Don (PCP) Terrence Kaufman MD Patient Instructions My [facility] Additional Instructions You have been treated in the Emergency Department for blurred vision. . Please call your family doctor to schedule follow-up and the eye doctor, Dr. Kaufman (phone number listed in this paperwork) Please have your thyroid function rechecked with your family doctor. For pain control, you can use the following [id number] medicines (if >12 yo): - Regular strength (325mg/tab) Tylenol (acetaminophen) 2 tabs every 4-6 hours as needed. Do not exceed 12 tablets in a 24 hour period. Avoid taking more than 3 grams (3000 mg) of Tylenol per day. This includes any other sources of acetaminophen you may take on a regular basis. - Regular strength (200 mg/tab) Advil (ibuprofen) 1-2 tabs every 4-6 hours as needed. Do not exceed a dose of 3200 mg per day. Avoid rubbing your eyes for the next few days as this can cause irritation. Wear sunglasses when outside to help minimize your pain. You should relax in a quiet, dark room to help minimize your symptoms. Return to the emergency department if you develop the following symptoms despite treatment course outlined above: blurry vision, loss of vision, fever, intractable pain, increased redness, swelling, or purulent discharge.
== END 2017-06-18 13:00 | disposition home or self-care (01) ==
LOC: C.EDB 09:00 → C.EDC 13:00
DX: H53.8 Other visual disturbances (principal); Z83.3 Family history of diabetes mellitus; F17.200 Nicotine dependence, unspecified, uncomplicated

== ENCOUNTER 2017-06-28 13:40 | Emergency (ER) | payer SELFPAY ==
[~2017-06-28] VITALS: Ht 167.6 cm; Wt 109.0 kg
[~2017-06-28 13:40] MED LIST changes: -ASPI1TAB83 PO; +ASPI325T39 PO; +EYED
[2017-06-28 13:49] VITALS: TEMP 36.6; Ht 167.6 cm; Wt 109.0 kg
[2017-06-28] MEDS ORDERED: ASPI81TA28 PO (14:57)
--- NOTE | 2017-06-28 15:05 | EMERGENCY ROOM VISIT NOTE ---
History First contact with patient: 14:46 Chief Complaint: ILLNESS Stated Complaint: ILLNESS History of Present Illness The patient is a 62 year old female with hx of heart murmur who presents to the Emergency Room with complaints of abdominal pain since this AM. Associated with fever of 100.2, nausea/vomiting this AM, constipation (last BM 2 days ago), puffy eyes (chronic and not coming down), sob (chronic). Denies chest pain and dysuria. Pt reports being with the [employer] police all day as mother does not want her living with her anymore. Review of Systems see below Constitutional: + fever Respiratory: + shortness of breath (chronic) Cardiovascular: No chest pain Abdomen: + pain, + nausea, + vomiting, + constipation, No diarrhea Genitourinary - Female: No dysuria Past Medical/Surgical History Medical Problems: (1) Altered mental status (2) Chest pain Family History FH: HTN (hypertension) FH: cancer FH: diabetes mellitus FH: heart disease FH: lung disease Social History Smoking Status: Current Some Day Smoker Alcohol Use: occasionally Drug Use: none Housing Status: lives with family Occupation Status: employed Current/Historical Medications Scheduled Aspirin (Aspirin Ec), 162 MG PO 3XWK Physical Exam Vital Signs Date Time Temp Pulse Resp B/P (MAP) Pulse Ox O2 Delivery O2 Flow Rate FiO2 06/28/17 16:28 71 06/28/17 15:54 74 135/58 94 Room Air 06/28/17 13:49 36.6 95 16 145/91 92 Room Air Physical Exam see below General Appearance: no apparent distress Head: normocephalic, atraumatic Eyes: PERRL, + pertinent finding (mild ramón-ocular erythema ) ENT: normal ENT inspection Respiratory/Chest: lungs clear, normal breath sounds Cardiovascular: regular rate, rhythm, no murmur Abdomen / GI: normal bowel sounds, non tender, soft Extremities: normal inspection, no pedal edema Neurologic/Psych: alert Medical Decision & Procedures Laboratory Results 06/28/17 15:15 Red Blood Count 4.84, Mean Corpuscular Volume 90.7, Mean Corpuscular Hemoglobin 31.8, Mean Corpuscular Hemoglobin Concent 35.1, Mean Platelet Volume 10.1, Neutrophils (%) (Auto) 75.7, Lymphocytes (%) (Auto) 18.0, Monocytes (%) (Auto) 4.6, Eosinophils (%) (Auto) 1.2, Basophils (%) (Auto) 0.2, Neutrophils # (Auto) 9.29, Lymphocytes # (Auto) 2.21, Monocytes # (Auto) 0.56, Eosinophils # (Auto) 0.15, Basophils # (Auto) 0.02 06/28/17 15:15 Test 06/28/17 15:15 06/28/17 15:25 White Blood Count 12.27 K/uL (4.8-10.8) Red Blood Count 4.84 M/uL (4.2-5.4) Hemoglobin 15.4 g/dL (12.0-16.0) Hematocrit 43.9 % (37-47) Mean Corpuscular Volume 90.7 fL (80-100) Mean Corpuscular Hemoglobin 31.8 pg (25-34) Mean Corpuscular Hemoglobin Concent 35.1 g/dl (32-36) Platelet Count 296 K/uL (130-400) Mean Platelet Volume 10.1 fL (7.4-10.4) Neutrophils (%) (Auto) 75.7 % Lymphocytes (%) (Auto) 18.0 % Monocytes (%) (Auto) 4.6 % Eosinophils (%) (Auto) 1.2 % Basophils (%) (Auto) 0.2 % Neutrophils # (Auto) 9.29 K/uL (1.4-6.5) Lymphocytes # (Auto) 2.21 K/uL (1.2-3.4) Monocytes # (Auto) 0.56 K/uL (0.11-0.59) Eosinophils # (Auto) 0.15 K/uL (0-0.5) Basophils # (Auto) 0.02 K/uL (0-0.2) RDW Standard Deviation 43.2 fL (36.4-46.3) RDW Coefficient of Variation 13.1 % (11.5-14.5) Immature Granulocyte % (Auto) 0.3 % Immature Granulocyte # (Auto) 0.04 K/uL (0.00-0.02) Urine WBC (Auto) 10-30 /hpf (0-5) Urine RBC (Auto) 0-4 /hpf (0-4) Urine Hyaline Casts (Auto) 1-5 /lpf (0-5) Urine Epithelial Cells (Auto) >30 /lpf (0-5) Urine Bacteria (Auto) 1+ (NEG) Anion Gap 6.0 mmol/L (3-11) Est Creatinine Clear Calc Drug Dose 85.9 ml/min Estimated GFR () 83.9 Estimated GFR (Non- 72.4 BUN/Creatinine Ratio 13.0 (10-20) Calcium Level 9.2 mg/dl (8.5-10.1) Total Bilirubin 0.5 mg/dl (0.2-1) Direct Bilirubin < 0.1 mg/dl (0-0.2) Aspartate Amino Transf (AST/SGOT) 12 U/L (15-37) Alanine Aminotransferase (ALT/SGPT) 21 U/L (12-78) Alkaline Phosphatase 84 U/L (45-117) Total Protein 8.8 gm/dl (6.4-8.2) Albumin 4.7 gm/dl (3.4-5.0) Lipase 130 U/L (73-393) Medical Decision 62y/oF with hx of heart murmur presents with abdominal pain associated with nausea/vomiting, fever and constipation (last BM 2 days ago) concerning for possible constipation vs. gastroenteritis vs. UTI vs. pancreatitis vs. hepatitis vs. IBD vs. IBS -Ordered KUB - negative, no bowel obstruction/pathologic bowel dilatation; no urinary tract calculi -Ordered CBC with diff, BMP, LFT, Lipase: wnl except mildly elevated WBC of 12.3 -Ordered UA: trace ketones, large leuk esterase, 10-30WBC 1+ bacteria with >30 epi cells - likely contaminated but will conservatively treat with Macrobid 100mg BID x 3 days Given history, exam and lab findings abdominal pain, nausea/vomiting and fever likely in the setting of UTI. Prescribed Macrobid 100mg BID x 3 days and discharged with PCP follow up in 1-2 days. Instructed to see PCP or return to the ED if having worsening symptoms. Impression Primary Impression: UTI (urinary tract infection) Resident Involvement: Resident Care Provided Care Provided: Adult ED Departure Information Dispostion Home / Self-Care Condition GOOD Referrals Kevin Ceballos D.O. (PCP) Patient Instructions My [facility] Additional Instructions Take Macrobid 100mg twice a day for 3 days Follow up with your primary care doctor in 1-2 days
[2017-06-28 15:30] LABS: BASO % 0.2 %; BASO ABS # 0.02 K/uL (0-0.2); EOS % 1.2 %; EOS ABS # 0.15 K/uL (0-0.5); HEMATOCRIT 43.9 % (37-47); HEMOGLOBIN 15.4 g/dL (12.0-16.0); IG# 0.04 K/uL (0.00-0.02); LYMPH ABS # 2.21 K/uL (1.2-3.4); MEAN CELL VOLUME 90.7 fL (80-100); MEAN CORPUSCULAR HEMOGLOBIN 31.8 pg (25-34); MEAN CORPUSCULAR HGB CONC 35.1 g/dl (32-36); MEAN PLATELET VOLUME 10.1 fL (7.4-10.4); MONO % 4.6 %; MONO ABS # 0.56 K/uL (0.11-0.59); NEUT % 75.7 %; NEUT ABS # 9.29 K/uL (1.4-6.5); PLATELET COUNT 296 K/uL (130-400); RED CELL DISTRIBUTION WIDTH CV 13.1 % (11.5-14.5); RED CELL DISTRIBUTION WIDTH SD 43.2 fL (36.4-46.3); WHITE BLOOD COUNT 12.27 K/uL (4.8-10.8)
--- NOTE | 2017-06-28 15:52 | DIAGNOSTIC IMAGING REPORT ---
KUB CLINICAL HISTORY: Left lower quadrant abdominal pain. Nausea. Vomiting. COMPARISON STUDY: No previous studies for comparison. FINDINGS: There is gas within nondilated large and small bowel loops. There are no transition zones to indicate bowel obstruction. There are no calcifications suspicious for renal calculi. IMPRESSION: 1. No evidence of pathologic bowel dilatation 2. No urinary tract calculi identified on conventional radiographic imaging Electronically signed by: Alex Yun M.D. 06/28/2017 3:51 PM Dictated Date/Time: 06/28/2017 3:50 PM
[2017-06-28 15:57] LABS: ALBUMIN 4.7 gm/dl (3.4-5.0); ALT/SGPT 21 U/L (12-78); AST/SGOT 12 U/L (15-37); BLOOD UREA NITROGEN 11 mg/dl (7-18); CALCIUM 9.2 mg/dl (8.5-10.1); CARBON DIOXIDE 28 mmol/L (21-32); CREATININE 0.87 mg/dl (0.60-1.20); GLUCOSE 105 mg/dl (70-99); LIPASE 130 U/L (73-393); POTASSIUM 3.6 mmol/L (3.5-5.1); SODIUM 138 mmol/L (136-145)
[2017-06-28 16:00] LABS: ALKALINE PHOSPHATASE 84 U/L (45-117); TOTAL PROTEIN 8.8 gm/dl (6.4-8.2)
--- NOTE | 2017-06-28 16:37 | EMERGENCY ROOM VISIT NOTE ---
History Report prepared by Timibnicolsa: Rola Hawkins Under the Supervision of: Dr. Evangelista Londono D.O. First contact with patient: 14:46 Chief Complaint: ILLNESS Stated Complaint: ILLNESS History of Present Illness The patient is a 62 year old female who presents to the Emergency Room with complaints of persistent abdominal pain since this morning. She rates her discomfort as a 6/10 in severity and describes the pain as feeling "crampy". She has been nauseous and vomited this morning. She has a fever of 100.2, last checked at home and states her last BM was 2 days ago. She notes she has had puffy eyes recently and has been short of breath, but admits her shortness of breath is chronic. Source of History: patient Onset: this morning Position: abdomen Symptom Intensity: 6/10 Quality: cramping Timing: other (persistent) Associated Symptoms: + fevers, + SOB, + nausea, + vomiting Review of Systems See HPI for pertinent positives & negatives. A total of 10 systems reviewed and were otherwise negative. Past Medical & Surgical Medical Problems: (1) Altered mental status (2) Chest pain Family History FH: HTN (hypertension) FH: cancer FH: diabetes mellitus FH: heart disease FH: lung disease Social History Smoking Status: Current Some Day Smoker Alcohol Use: occasionally Drug Use: none Housing Status: lives with family Occupation Status: employed Current/Historical Medications Scheduled Aspirin (Aspirin Ec), 162 MG PO 3XWK Nitrofurantoin Monohyd Macro (Macrobid), 1 CAP PO BID Allergies Coded Allergies: No Known Allergies (Unverified , 04/11/17) Physical Exam Vital Signs Date Time Temp Pulse Resp B/P (MAP) Pulse Ox O2 Delivery O2 Flow Rate FiO2 06/28/17 16:28 71 06/28/17 15:54 74 135/58 94 Room Air 06/28/17 13:49 36.6 95 16 145/91 92 Room Air Physical Exam CONSTITUTIONAL/VITAL SIGNS: Reviewed / noted above. GENERAL: Non-toxic in appearance. INTEGUMENTARY: Warm, dry, and [place]. HEAD: Normocephalic. EYES: without scleral icterus or trauma. ENT/OROPHARYNX: clear and moist. LYMPHADENOPATHY/NECK: Is supple without lymphadenopathy or meningismus. RESPIRATORY: Lungs clear and equal. CARDIOVASCULAR: Regular rate and rhythm. GI/ABDOMEN: Soft and nontender. No organomegaly or pulsatile mass. No rebound or guarding. Normal bowel sounds. EXTREMITIES: Warm and well perfused. BACK: No CVA tenderness. NEUROLOGICAL: Intact without focal deficits. PSYCHIATRIC: normal affect. MUSCULOSKELETAL: Normally developed with good muscle tone. Medical Decision & Procedures ER Provider Diagnostic Interpretation: Radiology results as stated below per my review and radiologist interpretation: KUB CLINICAL HISTORY: Left lower quadrant abdominal pain. Nausea. Vomiting. COMPARISON STUDY: No previous studies for comparison. FINDINGS: There is gas within nondilated large and small bowel loops. There are no transition zones to indicate bowel obstruction. There are no calcifications suspicious for renal calculi. IMPRESSION: 1. No evidence of pathologic bowel dilatation 2. No urinary tract calculi identified on conventional radiographic imaging Electronically signed by: Alex Yun M.D. 06/28/2017 3:51 PM Laboratory Results 06/28/17 15:15 Red Blood Count 4.84, Mean Corpuscular Volume 90.7, Mean Corpuscular Hemoglobin 31.8, Mean Corpuscular Hemoglobin Concent 35.1, Mean Platelet Volume 10.1, Neutrophils (%) (Auto) 75.7, Lymphocytes (%) (Auto) 18.0, Monocytes (%) (Auto) 4.6, Eosinophils (%) (Auto) 1.2, Basophils (%) (Auto) 0.2, Neutrophils # (Auto) 9.29, Lymphocytes # (Auto) 2.21, Monocytes # (Auto) 0.56, Eosinophils # (Auto) 0.15, Basophils # (Auto) 0.02 06/28/17 15:15 Test 06/28/17 15:15 06/28/17 15:25 White Blood Count 12.27 K/uL (4.8-10.8) Red Blood Count 4.84 M/uL (4.2-5.4) Hemoglobin 15.4 g/dL (12.0-16.0) Hematocrit 43.9 % (37-47) Mean Corpuscular Volume 90.7 fL (80-100) Mean Corpuscular Hemoglobin 31.8 pg (25-34) Mean Corpuscular Hemoglobin Concent 35.1 g/dl (32-36) Platelet Count 296 K/uL (130-400) Mean Platelet Volume 10.1 fL (7.4-10.4) Neutrophils (%) (Auto) 75.7 % Lymphocytes (%) (Auto) 18.0 % Monocytes (%) (Auto) 4.6 % Eosinophils (%) (Auto) 1.2 % Basophils (%) (Auto) 0.2 % Neutrophils # (Auto) 9.29 K/uL (1.4-6.5) Lymphocytes # (Auto) 2.21 K/uL (1.2-3.4) Monocytes # (Auto) 0.56 K/uL (0.11-0.59) Eosinophils # (Auto) 0.15 K/uL (0-0.5) Basophils # (Auto) 0.02 K/uL (0-0.2) RDW Standard Deviation 43.2 fL (36.4-46.3) RDW Coefficient of Variation 13.1 % (11.5-14.5) Immature Granulocyte % (Auto) 0.3 % Immature Granulocyte # (Auto) 0.04 K/uL (0.00-0.02) Urine WBC (Auto) 10-30 /hpf (0-5) Urine RBC (Auto) 0-4 /hpf (0-4) Urine Hyaline Casts (Auto) 1-5 /lpf (0-5) Urine Epithelial Cells (Auto) >30 /lpf (0-5) Urine Bacteria (Auto) 1+ (NEG) Anion Gap 6.0 mmol/L (3-11) Est Creatinine Clear Calc Drug Dose 85.9 ml/min Estimated GFR () 83.9 Estimated GFR (Non- 72.4 BUN/Creatinine Ratio 13.0 (10-20) Calcium Level 9.2 mg/dl (8.5-10.1) Total Bilirubin 0.5 mg/dl (0.2-1) Direct Bilirubin < 0.1 mg/dl (0-0.2) Aspartate Amino Transf (AST/SGOT) 12 U/L (15-37) Alanine Aminotransferase (ALT/SGPT) 21 U/L (12-78) Alkaline Phosphatase 84 U/L (45-117) Total Protein 8.8 gm/dl (6.4-8.2) Albumin 4.7 gm/dl (3.4-5.0) Lipase 130 U/L (73-393) Laboratory results as stated above per my review. ED Course 1445: Previous medical records were reviewed. The patient was evaluated in room A9B. A complete history and physical examination was performed. 1645: On reevaluation, the patient is resting comfortably and feeling well. I discussed the results and findings with the patient. She verbalized agreement of the treatment plan. The patient was discharged home. Medical Decision Differential considered: pancreatitis, hepatitis, acute cholecystitis, AAA, UTI , pyelonephritis, kidney stones, appendicitis, diverticulitis, shingles, bowel obstruction, mesenteric ischemia, intussusception,hernia, space ovarian torsion. This is a 62-year-old female who presents to the ED with a chief complaint of some crampy abdominal pain. The patient was seen with the resident. She has some associated nausea and some constipation for 2 days. The patient is a normal physical exam. Laboratory studies were normal as well as a KUB. Urine was contaminated but suggest possible infection. She was told the results of the test. She was discharged on Macrobid. Medication Reconcilliation Current Medication List: was personally reviewed by me Blood Pressure Screening Patient's blood pressure: Elevated blood pressure Blood pressure disposition: Elevated BP felt to be situational Impression Primary Impression: UTI (urinary tract infection) Additional Impression: Abdominal cramping Scribe Attestation The scribe's documentation has been prepared under my direction and personally reviewed by me in its entirety. I confirm that the note above accurately reflects all work, treatment, procedures, and medical decision making performed by me. Departure Information Prescriptions Nitrofurantoin Monohyd Macro (MACROBID) 100 Mg Cap 1 CAP PO BID for 3 Days, #6 CAP Prov: Ivan Rojo M.D. 06/28/17 Referrals Kevin Ceballos D.OJolynn (PCP) Patient Instructions My [facility] Problem Qualifiers
[2017-06-28] MEDS ORDERED: NITR1CAP16 PO (16:40)
[2017-06-28 17:14] VITALS: BP 142/74; PULSE 85; O2SAT 96
== END 2017-06-28 17:16 | disposition home or self-care (01) ==
LOC: EDBD 13:40 → C.EDB 13:41 → C.EDA 17:16
DX: N39.0 Urinary tract infection, site not specified (principal); R10.32 Left lower quadrant pain; R50.9 Fever, unspecified; R11.0 Nausea; F17.210 Nicotine dependence, cigarettes, uncomplicated; Z79.82 Long term (current) use of aspirin; Z79.899 Other long term (current) drug therapy; Z82.49 Family history of ischemic heart disease and other diseases of the circulatory system; Z83.3 Family history of diabetes mellitus

== ENCOUNTER 2017-11-08 18:26 | Emergency (ER) | payer SELFPAY ==
[~2017-11-08] VITALS: Ht 165.1 cm; Wt 88.9 kg
[~2017-11-08 18:26] MED LIST changes: +ASPI1TAB35 PO; -ASPI325T39 PO; -EYED
[2017-11-08 18:27] VITALS: TEMP 37.1; Ht 165.1 cm; Wt 88.9 kg
--- NOTE | 2017-11-08 19:09 | DIAGNOSTIC IMAGING REPORT ---
CHEST 1 VW FRONT-NOT PORTABLE HISTORY: 62 years-old Female right rib pain eval for fx acute atypical chest pain, most pronounced on the right with concern for possible right-sided rib fracture COMPARISON: Chest radiograph 04/11/2017 TECHNIQUE: Portable AP view of the chest FINDINGS: Cardiomediastinal and hilar silhouettes are within normal limits. No pneumothorax, pleural effusion, focal airspace consolidation or overt pulmonary edema. Bones of the chest appear grossly intact. Multilevel degenerative changes of the spine. No definite acute displaced rib fracture identified. IMPRESSION: No acute process of the chest. The above report was generated using voice recognition software. It may contain grammatical, syntax or spelling errors. Electronically signed by: Mars Vivas M.D. 11/08/2017 7:08 PM Dictated Date/Time: 11/08/2017 7:04 PM
[2017-11-08 21:04] VITALS: BP 117/55; PULSE 78; O2SAT 97
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
== END 2017-11-08 21:06 | disposition home or self-care (01) ==
LOC: C.EDB 18:27 → C.EDA 21:06
DX: R46.89 Other symptoms and signs involving appearance and behavior (principal); S20.211A Contusion of right front wall of thorax, initial encounter; Y35.813A Legal intervention involving manhandling, suspect injured, initial encounter; F17.200 Nicotine dependence, unspecified, uncomplicated

== ENCOUNTER 2024-05-20 14:47 | Inpatient (IN) ==
[2024-05-20] MEDS: ALBUT/IPRATROP 3MG/0.5MG NEB 3 ML VIAL NEB ONE (15:12)
[2024-05-20 15:21] LABS: iSTAT Creatinine 0.7 mg/dl (0.6-1.3); iSTAT Hemoglobin 14.3 g/dl (12.0-16.0); iSTAT Ionized Calcium 1.08 mmol/l (1.12-1.32); iSTAT Potassium 4.5 mmol/L (3.3-5.0)
[2024-05-20 15:25] LABS: Base Excess VBG 3.6 mEq/L; HCO3 VBG 32 mmol/L; Oxygen Saturation VBG 87.1 %; PCO2 VBG 65 mmHg (38-50); PO2 VBG 61 mmHg
--- NOTE | 2024-05-20 15:33 | Emergency Department Note ---
Impression & Plan Influenza A, Bilateral pulmonary embolism, Acute hypoxic respiratory failure, Tobacco use disorder ED Provider Note Provider: Francesco Nava MD CHIEF COMPLAINT: Confusion, illness HISTORY OF PRESENT ILLNESS: Patient is a 69-year-old female history of smoking presenting today after daughter states she was minimally responsive and confused earlier. Patient has been ill per daughter's report over the past week or so. Having some constipation and not eating and drinking well. EMS initially ported maybe some nausea vomiting and diarrhea but it seems like it has more constipation. Has been eating so well. Was doing okay yesterday but daughter states today patient was minimally arousable at home. Found upon arrival here to be significantly hypoxic is not normally on oxygen. Patient does not remember the ambulance or her daughter checking on her earlier today. Patient denies any complaint of significant pain prickly chest pain or abdominal pain or headache. PAST MEDICAL HISTORY: As noted above MEDICATIONS: No significant home medications SOCIAL HISTORY: Smoker PHYSICAL EXAM: GENERAL: alert and oriented in no acute distress on stretcher Head: normocephalic and atraumatic EYES: No injection, discharge or icterus. PERRL, EOMI. NECK: Trachea midline. ENT: Mucous membranes pink and moist. LUNGS: Airway patent. No retractions. Breath sounds diffusely wheezy HEART: Regular rate and rhythm. No chest wall tenderness ABDOMEN: Soft and non-tender, without guarding or rebound. SKIN: Acyanotic, warm, dry, without rashes EXTREMITIES: Without tenderness trace bilateral pedal edema. NEUROLOGICAL: No focal deficits. No aphasia. No facial droop or slurred speech. Normal strength and tone in the extremities. Sensation to gross touch normal. EK beats minute normal sinus rhythm. A second bout of respiratory artifact. No clear acute ST segment elevation or depression with QTc of 462. CONTINUOUS CARDIAC MONITORING: was ordered and showed a heart rate of 80s to 90s bpm in normal sinus rhythm Patient's laboratory studies and imaging reviewed. Differential includes Infection, dehydration, metabolic abnormality, hypo/hyperglycemia, pneumonia, PE, electrolyte disturbance, anemia, hypoxia, cardiac sources, intracerebral event, toxicologic, neurologic, as well as other pathologies. IMPRESSION/MEDICAL DECISION MAKING: Patient significant hypoxia on arrival. Severely wheezy. Febrile. Family has had recent flu. Respiratory viral panel sent. Given DuoNeb and a course of steroids given her smoking history. Mom borderline acidosis 7.3 with a CO2 of 65 upon arrival. No significant leukocytosis or anemia. Mild significantly tender in the abdomen given the constipation and nausea with her illness and confusion entertain a broad differential and complete a CT abdomen pelvis. A CTA of the chest to exclude PE and further evaluate the lungs were obtained as well as a CT of the head. And seem focal and a low suspicion for CVA. Her mental status is much improved here according to daughter who later arrives. Evidently given IV Tylenol by EMS prior to arrival. Respiratory viral panel positive for influenza A likely etiology of her symptoms. Negative alcohol level. Procalcitonin 0.3 not severely elevated. Troponin normal. CT head. Allergy with acute findings. CT abdomen pelvis without acute findings other than noted likely bone islands. Did make the patient and family aware of this incidental finding for follow-up purposes just to exclude any rare possibilities could represent other process. CTA of the chest per radiology subsegmental PEs in bilateral upper and lower lobes. No findings of pneumonia. Some lymphadenopathy noted. Family made aware of follow-up purposes for this. Will start anticoagulation. Discussed with patient family at bedside findings. Likely driven by influenza A with underlying smoking some component of COPD. Is hypoxic here and with the borderline VBG did strongly recommend we keep her here for further care. Given some Tamiflu, and starting heparin drip here. Will bring into the hospital. Will need to be established with primary care for follow-up of the lymph nodes in the lungs and the bone island findings in the CTs. On 6 L of oxygen and stable at this time but may decompensate requiring BiPAP or high flow. Discussed with hospitalist team. Hypercoagulability panel ordered. DIAGNOSIS: Influenza A, subsegmental PEs, hypoxia DISPOSITION: Hospitalist will evaluate Critical Care I have personally spent 36 minutes of critical care time in the direct management of this patient. This includes bedside care, interpretation of diagnostic studies, and testing, discussion with consultants, patient, and family members, and other required patient management activities. These 36 minutes is in excess of all separately billable procedures. Past Med/Surg History Problem List (Updated 05/20/24 @ 20:10 by Francesco Nava M.D.) Hilar lymphadenopathy Tobacco use disorder (Acute) Obesity hypoventilation syndrome Influenza A (Acute) Bilateral pulmonary embolism (Acute) Acute hypoxic respiratory failure (Acute) Medical History Mood disorder Tobacco use disorder Surgical History No significant past surgical history Family History (Updated 10/26/18 @ 23:24 by Warren Castellanos) Other No significant family history Social History (Updated 05/20/24 @ 19:36 by Kiana Machado PA-C) Smoking Status: Current every day smoker Tobacco Type: Cigarettes Hx Alcohol Use: No Hx Substance Use: No Preferred Language: Kiswahili marital status: Current Living Situation Comment: camper with family nearby current occupational status: unemployed Feels Safe at Home: Yes Allergies Allergies Allergy/AdvReac Type Severity Reaction Status Date / Time No Known Allergies Allergy Unverified 05/20/24 17:30 Home Meds Home Medications Medication Instructions Recorded Confirmed acetaminophen 500 mg tablet 500 mg PO Q6H PRN Pain 05/20/24 05/20/24 Results & Data (ED) Vital Signs Vital Signs - 24 hr 05/20/24 15:00 05/20/24 15:00 05/20/24 15:06 Temperature 37.9 C H Temperature Source Oral Pulse Rate 94 H 94 H 92 H Pulse Rate from SpO2 Sensor Pulse Rhythm Respiratory Rate 24 28 H Respiratory Effort / Characteristics Short of Breath Blood Pressure 109/57 L 109/57 L Blood Pressure Mean 80 74 Pulse Oximetry 100 47 L Oxygen Delivery Method Nebulizer Room Air Oxygen Flow Rate Sepsis Recent Fever Within 48 Hours Yes Sepsis New/Unexplained Change in Mental Status Yes Sepsis Action Taken by Nursing Physician Notified Oxygen Flow Rate - Titration Pulse Oximetry Post Tiitration 05/20/24 15:06 05/20/24 15:06 05/20/24 15:06 Temperature Temperature Source Pulse Rate Pulse Rate from SpO2 Sensor Pulse Rhythm Regular Respiratory Rate Respiratory Effort / Characteristics Blood Pressure Blood Pressure Mean Pulse Oximetry 47 L 99 Oxygen Delivery Method Room Air Non-rebreather Oxygen Flow Rate 15 Sepsis Recent Fever Within 48 Hours Sepsis New/Unexplained Change in Mental Status Sepsis Action Taken by Nursing Oxygen Flow Rate - Titration 15 Pulse Oximetry Post Tiitration 98 05/20/24 15:10 05/20/24 15:12 05/20/24 15:30 Temperature Temperature Source Pulse Rate 93 H Pulse Rate from SpO2 Sensor 93 H Pulse Rhythm Respiratory Rate 20 21 Respiratory Effort / Characteristics Non-Labored Spontaneous Blood Pressure 111/68 101/60 Blood Pressure Mean 79 73 Pulse Oximetry 100 99 Oxygen Delivery Method Non-rebreather Nebulizer Oxygen Flow Rate 15 Sepsis Recent Fever Within 48 Hours Sepsis New/Unexplained Change in Mental Status Sepsis Action Taken by Nursing Oxygen Flow Rate - Titration Pulse Oximetry Post Tiitration 05/20/24 16:13 05/20/24 16:30 05/20/24 17:01 Temperature Temperature Source Pulse Rate 91 H 94 H Pulse Rate from SpO2 Sensor 92 H Pulse Rhythm Respiratory Rate 25 H 22 Respiratory Effort / Characteristics Blood Pressure 126/91 97/57 L 102/72 Blood Pressure Mean 99 70 91 Pulse Oximetry 98 96 Oxygen Delivery Method Nasal Cannula Nasal Cannula Oxygen Flow Rate 6 6 Sepsis Recent Fever Within 48 Hours Sepsis New/Unexplained Change in Mental Status Sepsis Action Taken by Nursing Oxygen Flow Rate - Titration Pulse Oximetry Post Tiitration 05/20/24 17:52 05/20/24 18:01 05/20/24 18:52 Temperature 36.6 C Temperature Source Oral Pulse Rate 93 H 89 Pulse Rate from SpO2 Sensor Pulse Rhythm Respiratory Rate 22 Respiratory Effort / Characteristics Blood Pressure 97/64 L Blood Pressure Mean 66 Pulse Oximetry 93 Oxygen Delivery Method Nasal Cannula Oxygen Flow Rate 6 Sepsis Recent Fever Within 48 Hours Sepsis New/Unexplained Change in Mental Status Sepsis Action Taken by Nursing Oxygen Flow Rate - Titration Pulse Oximetry Post Tiitration Laboratory Data 05/20/24 15:05 05/20/24 15:05 Lab Results 05/20/24 05/20/24 05/20/24 Range/Units 15:05 15:08 15:16 WBC 6.38 (4.8-10.8) K/ul RBC 4.54 (4.20-5.40) M/uL Hgb 14.0 (12.0-16.0) g/dl POC Hgb 14.3 (12.0-16.0) g/dl Hct 41.1 (37.0-47.0) % POC Hct 42 (37-47) % MCV 90.5 (80.0-100.0) fL MCH 30.8 (25.0-34.0) pg MCHC 34.1 (32.0-36.0) g/dL RDW Std Deviation 43.6 (36.4-46.3) fL RDW Coeff of Chad 13.2 (11.5-14.5) % Plt Count 227 (130-400) K/uL MPV 9.7 (9.4-12.4) fL Immature Gran % (Auto) 0.6 % Neut % (Auto) 70.5 % Lymph % (Auto) 16.0 % Cedar % (Auto) 12.5 % Eos % (Auto) 0.2 % Baso % (Auto) 0.2 % Neut # (Auto) 4.50 (1.40-6.50) K/uL Lymph # (Auto) 1.02 L (1.20-3.40) K/uL Cedar # (Auto) 0.80 H (0.11-0.59) K/uL Eos # (Auto) 0.01 (0.00-0.50) K/uL Baso # (Auto) 0.01 (0.00-0.20) K/uL Immature Gran # (Auto) 0.04 (0.01-0.20) K/uL PT 11.4 (9.0-12.0) Seconds INR 1.1 (0.9-1.1) APTT 32 H (21-31) Seconds PTT Ratio 1.2 VBG pH 7.30 L (7.36-7.41) VBG pCO2 65 H (38-50) mmHg VBG pO2 61 mmHg VBG HCO3 32 mmol/L VBG O2 Saturation 87.1 % VBG Base Excess 3.6 mEq/L POC Sodium 132 L (135-144) mmol/L Sodium 133 L (136-145) mmol/L POC Potassium 4.5 (3.3-5.0) mmol/L Potassium 4.5 (3.5-5.1) mmol/L POC Chloride 93 L (101-112) mmol/L Chloride 94 L (98-107) mmol/L Carbon Dioxide 33 H (21-32) mmol/L POC Total CO2 29 (24-31) mmol/L Anion Gap 6 (3-11) POC Anion Gap 15.0 L (16-25) mmol/L POC BUN 21 H (7-18) mg/dl BUN 22 (6-23) mg/dl Creatinine 0.66 (0.6-1.2) mg/dl POC Creatinine 0.7 (0.6-1.3) mg/dl Est Cr Clr Drug Dosing 107.6 ml/min eGFR 96.09 BUN/Creatinine Ratio 33.3 H (10-20) Glucose 133 H (70-99(Fasting)) mg/dl POC Glucose (other) 131 H (70-99) mg/dl Lactate 0.9 (0.4-2.0) mmol/L Calcium 8.6 (8.6-10.3) mg/dl POC Ioniz Calcium Fabian 1.08 L (1.12-1.32) mmol/l Magnesium 1.7 (1.7-2.4) mg/dl Total Bilirubin 0.5 (0.2-1.0) mg/dl AST 21 (13-39) U/L ALT 17 (7-52) U/L Alkaline Phosphatase 45 (34-104) U/L Total Creatine Kinase 128 (26-192) U/L Troponin I High Sens 13.9 (0-14) pg/ml B-Natriuretic Peptide 330 H (0-100) pg/ml Total Protein 7.2 (6.0-8.3) gm/dl Albumin 4.1 (3.4-5.0) gm/dl Globulin 3.1 (2.5-4.0) gm/dl Albumin/Globulin Ratio 1.3 (0.9-2) Lipase 20 (11-82) U/L Procalcitonin 0.31 (0-0.5) ng/ml TSH 0.280 L (0.300-4.500) uIu/ml Free T4 0.71 (0.61-1.60) ng/dl Ethyl Alcohol mg/dL < 10.0 (<10.0) mg/dl Adenovirus (PCR) Not Detected (NotDetected) B. pertussis DNA (PCR) Not Detected (NotDetected) B.parapertussis DNA PCR Not Detected (NotDetected) C. pneumoniae DNA (PCR) Not Detected (NotDetected) Coronavirus OC43 (PCR) Not Detected (NotDetected) Coronavirus HKU1 (PCR) Not Detected (NotDetected) Coronavirus 229E (PCR) Not Detected (NotDetected) SARS-CoV-2 (PCR) Not Detected (NotDetected) Coronavirus NL63 (PCR) Not Detected (NotDetected) Human Metapneumovir PCR Not Detected (NotDetected) Influenza A (H3) PCR DETECTED A (NotDetected) Influenza Type B (PCR) Not Detected (NotDetected) M. pneumoniae (PCR) Not Detected (NotDetected) Parainfluenza 1 (PCR) Not Detected (NotDetected) Parainfluenza 2 (PCR) Not Detected (NotDetected) Parainfluenza 3 (PCR) Not Detected (NotDetected) Parainfluenza 4 (PCR) Not Detected (NotDetected) RSV (PCR) Not Detected (NotDetected) Entero/Rhino (PCR) Not Detected (NotDetected) Administered Medications Heparin Sodium/Dextrose (Heparin 73314 Unit/500 Ml D5w) 25,000 units in 500 mls @ 30 mls/hr IV .[id number] PAUL; Protocol Stop: 06/19/24 18:29 Last Admin: 05/20/24 18:20 Dose: 1,500 units/hr, 30 mls/hr Documented By: MR Co-signed By: GEORGIANA Discontinued Medications Acetaminophen (Acetaminophen 500 Mg Tab) 1,000 mg PO NOW STA Stop: 05/20/24 17:43 Last Admin: 05/20/24 17:56 Dose: Not Given Documented By: GEORGIANA Albuterol (Albut/Ipratrop 3mg/0.5mg Neb 3 Ml Vial) 12 ml NEB ONE ONE; Protocol Stop: 05/20/24 15:01 Last Admin: 05/20/24 15:12 Dose: 12 ml Documented By: BRYCE Heparin Sodium (Porcine) (Heparin Sod (Porcine) 1000 Unit/Ml) 1 units IV NOW ONE Stop: 05/20/24 17:58 Last Admin: 05/20/24 18:20 Dose: 7,000 units Documented By: MR Co-signed By: GEORGIANA Heparin Sodium/Dextrose (Heparin Iv Adult Wt-Based Standard W/ Initial Bolus Protocol) 1 each IV NOW STA; Protocol Stop: 05/20/24 17:43 Last Admin: 05/20/24 17:55 Dose: 1 each Documented By: GEORGIANA Ioversol (Optiray 320 125ml) 119 ml IV ONCE ONE Stop: 05/20/24 16:04 Last Admin: 05/20/24 16:04 Dose: 119 ml Documented By: KAYY Methylprednisolone (Methylprednisolone 125 Mg/2 Ml Vial) 125 mg IV NOW STA Stop: 05/20/24 15:05 Last Admin: 05/20/24 16:14 Dose: 125 mg Documented By: GEORGIANA Oseltamivir Phosphate (Oseltamivir Phosphate 75 Mg Cap) 75 mg PO NOW STA Stop: 05/20/24 17:43 Last Admin: 05/20/24 18:26 Dose: 75 mg Documented By: MR Imaging Data Radiologist's Impression: Chest X-Ray 05/20/24 15:00 HISTORY: Weakness. TECHNIQUE: Portable AP radiograph of the chest COMPARISON: Chest radiograph dated 11/08/2017. FINDINGS: No focal consolidation. Enlarged central pulmonary arteries, which could be seen with pulmonary arterial hypertension. Top normal heart size. Bilateral hilar lymphadenopathy. No pneumothorax or effusion. No acute osseous abnormality. Included upper abdomen is unremarkable. IMPRESSION: 1. No acute cardiopulmonary findings. 2. Enlarged central pulmonary arteries, which could be seen with pulmonary arterial hypertension. 3. Bilateral hilar lymphadenopathy for which follow-up chest CT with contrast is recommended in 3 months. Electronically signed by Rock Morales 05-20-2024 5:04 PM Abdomen/Pelvis CT 05/20/24 15:03 HISTORY: Hypoxia and altered mental status. Nausea, vomiting, diarrhea TECHNIQUE: Helical CT imaging of the abdomen pelvis was performed following uneventful administration 119 mL of Optiray 320 IV contrast. COMPARISON: None. FINDINGS: Mild atelectasis at the lung bases. The liver, gallbladder, spleen, adrenal glands, and pancreas are unremarkable. Cortical scarring along the superior pole of the right kidney. Kidneys are otherwise unremarkable. The stomach, duodenum, and small bowel loops are unremarkable. The colon is normal in caliber. Normal appendix is best visualized on coronal images. No ascites or pneumoperitoneum. No abdominal aortic aneurysm. No suspicious lymphadenopathy. The uterus and ovaries are unremarkable. The soft tissues of the body wall are unremarkable. Mild degenerative changes of the spine. Small subcentimeter sclerotic foci are seen throughout the osseous structures. These are nonspecific in favor small bone islands, but blastic metastases could have a similar appearance and cannot be excluded. IMPRESSION: 1. No acute findings in the abdomen or pelvis. 2. Small subcentimeter sclerotic foci are seen throughout the osseous structures. These are nonspecific and favor small bone islands, but blastic metastasescould have a similar appearance and cannot be excluded. These could be correlated with nuclear medicine bone scan. 3. Additional chronic and/or incidental findings as above. Electronically signed by Rock Morales 05-20-2024 4:39 PM Chest CTA 05/20/24 15:03 HISTORY: Hypoxia. TECHNIQUE: Helical CT angiography of the chest was performed following uneventful administration 119 mL of Optiray 320 IV contrast. Coronal and sagittal 3D MIP reconstructions are provided. COMPARISON: None. FINDINGS: Small subsegmental pulmonary emboli are identified involving both upper lobes and the right lower lobe. No large or central PE. No evidence of right heart strain. Top normal heart size. No evidence of aortic dissection or acute aortic process. Enlarged bilateral hilar lymph nodes. Right hilar lymph node measuring 2.9 x 1.8 cm on series 10 image 153. Thoracic esophagus is unremarkable. Included thyroid gland is unremarkable. The soft tissues of the chest wall are unremarkable. Included upper abdomen is unremarkable. Mild atelectasis at the lung bases. Respiratory motion artifact limits evaluation of the lungs. No focal consolidation concerning for pneumonia. No pneumothorax or effusion. The central tracheobronchial tree is patent. Mild degenerative changes of the spine. No acute osseous abnormality. IMPRESSION: 1. Subsegmental pulmonary emboli involving the bilateral upper and lower lobes. No large or central PE. No evidence of right heart strain. 2. No evidence of acute aortic process. 3. Nonspecific bilateral hilar lymphadenopathy. This could be reactive or less likely malignant. Follow-up chest CT with contrast is recommended in 3 months to ensure resolution. 4. Additional chronic and/or incidental findings as detailed above. Findings were discussed with the ordering provider Dr. Francesco Nava at 5 PM on 05/20/2024. Electronically signed by Rock Morales 05-20-2024 5:[address] 05/20/24 15:03 HISTORY: Altered mental status. TECHNIQUE: CT the head without contrast. Axial, sagittal, and coronal reformats are provided. COMPARISON: None FINDINGS: No evidence of acute intracranial hemorrhage, abnormal extra-axial fluid collection, mass effect, or midline shift. Ventricular caliber is appropriate. The fourth ventricle is midline. The basal cisterns are patent. Benson-white differentiation is maintained. The paranasal sinuses and mastoid air cells are clear. No acute calvarial fracture. The soft tissues about the skull base and scalp are unremarkable. The globes and orbits are unremarkable. IMPRESSION: No acute intracranial findings. Electronically signed by Rock Morales 05-20-2024 4:41 PM Discharge Plan Visit Data Chief Complaint: Altered Mental Status ED Provider: Francesco Nava Discharge Problem: Influenza A, Bilateral pulmonary embolism, Acute hypoxic respiratory failure, Tobacco use disorder Forms Stand Alone Forms: [email or web address] Prescriptions Prescriptions: No Action acetaminophen [Tylenol Ex Str Rapid Release] 500 mg Tablet 500 mg PO Q6H PRN (Reason: Pain) Referrals Referrals: PCP,NO [Primary Care Provider] -
[2024-05-20 15:58] LABS: Basophils # (auto) 0.01 K/uL (0.00-0.20); Basophils % (auto) 0.2 %; Eosinophils # (auto) 0.01 K/uL (0.00-0.50); Eosinophils % (auto) 0.2 %; Hematocrit (blood only) 41.1 % (37.0-47.0); Immature Granulocytes # (auto) 0.04 K/uL (0.01-0.20); Immature Granulocytes % (auto) 0.6 %; Lymphocytes # (auto) 1.02 K/uL (1.20-3.40); Mean Corpuscular Hemoglobin 30.8 pg (25.0-34.0); Mean Corpuscular Hgb Conc 34.1 g/dL (32.0-36.0); Mean Corpuscular Volume 90.5 fL (80.0-100.0); Mean Platelet Volume 9.7 fL (9.4-12.4); Monocytes % (auto) 12.5 %; Neutrophils % (auto) 70.5 %; Platelet Count 227 K/uL (130-400); RDW Coefficient of Variation 13.2 % (11.5-14.5); RDW Standard Deviation 43.6 fL (36.4-46.3); Red Blood Count 4.54 M/uL (4.20-5.40); White Blood Count 6.38 K/ul (4.8-10.8)
[2024-05-20] MEDS: OPTIRAY 320 125ml IV ONE (16:04)
[2024-05-20 16:05] LABS: INR 1.1 (0.9-1.1); Prothrombin Time 11.4 Seconds (9.0-12.0)
[2024-05-20] MEDS: methylPREDNISolone 125 MG/2 ML VIAL IV STA (16:14)
[2024-05-20 16:20] LABS: Adenovirus PCR Not Detected (NotDetected); Albumin Globulin Ratio 1.3 (0.9-2); Albumin Level 4.1 gm/dl (3.4-5.0); BUN Creatinine Ratio 33.3 (10-20); Bilirubin,Total 0.5 mg/dl (0.2-1.0); Bordetella parapertussis PCR Not Detected (NotDetected); Bordetella pertussis PCR Not Detected (NotDetected); Calcium 8.6 mg/dl (8.6-10.3); Chlamydia pneumoniae PCR Not Detected (NotDetected); Coronavirus 229E PCR Not Detected (NotDetected); Coronavirus CoV-2 (COVID19)PCR Not Detected (NotDetected); Coronavirus HKU1 PCR Not Detected (NotDetected); Coronavirus NL63 PCR Not Detected (NotDetected); Coronavirus OC43PCR Not Detected (NotDetected); Creatinine Clr Calc Pharmacy 107.6 ml/min; Globulin 3.1 gm/dl (2.5-4.0); Human Metapneumovirus PCR Not Detected (NotDetected); Influenza A (H3) PCR DETECTED (NotDetected); Influenza B PCR Not Detected (NotDetected); Magnesium 1.7 mg/dl (1.7-2.4); Mycoplasma pneumoniae PCR Not Detected (NotDetected); Parainfluenza Virus 1 PCR Not Detected (NotDetected); Parainfluenza Virus 2 PCR Not Detected (NotDetected); Parainfluenza Virus 3 PCR Not Detected (NotDetected); Parainfluenza Virus 4 PCR Not Detected (NotDetected); Potassium 4.5 mmol/L (3.5-5.1); Respiratory Syncytial VirusPCR Not Detected (NotDetected); Rhinovirus/Enterovirus PCR Not Detected (NotDetected); Total Protein 7.2 gm/dl (6.0-8.3)
[2024-05-20 16:26] LABS: Troponin I High Sensitivity 13.9 pg/ml (0-14)
[2024-05-20 16:36] LABS: Thyroid Stimulating Hormone 0.28 uIu/ml (0.300-4.500)
--- NOTE | 2024-05-20 16:40 | CT Scan Report ---
HISTORY: Hypoxia and altered mental status. Nausea, vomiting, diarrhea TECHNIQUE: Helical CT imaging of the abdomen pelvis was performed following uneventful administration 119 mL of Optiray 320 IV contrast. COMPARISON: None. FINDINGS: Mild atelectasis at the lung bases. The liver, gallbladder, spleen, adrenal glands, and pancreas are unremarkable. Cortical scarring along the superior pole of the right kidney. Kidneys are otherwise unremarkable. The stomach, duodenum, and small bowel loops are unremarkable. The colon is normal in caliber. Normal appendix is best visualized on coronal images. No ascites or pneumoperitoneum. No abdominal aortic aneurysm. No suspicious lymphadenopathy. The uterus and ovaries are unremarkable. The soft tissues of the body wall are unremarkable. Mild degenerative changes of the spine. Small subcentimeter sclerotic foci are seen throughout the osseous structures. These are nonspecific in favor small bone islands, but blastic metastases could have a similar appearance and cannot be excluded. IMPRESSION: 1. No acute findings in the abdomen or pelvis. 2. Small subcentimeter sclerotic foci are seen throughout the osseous structures. These are nonspecific and favor small bone islands, but blastic metastasescould have a similar appearance and cannot be excluded. These could be correlated with nuclear medicine bone scan. 3. Additional chronic and/or incidental findings as above. Electronically signed by Rock Morales 05-20-2024 4:39 PM
--- NOTE | 2024-05-20 16:42 | CT Scan Report ---
HISTORY: Altered mental status. TECHNIQUE: CT the head without contrast. Axial, sagittal, and coronal reformats are provided. COMPARISON: None FINDINGS: No evidence of acute intracranial hemorrhage, abnormal extra-axial fluid collection, mass effect, or midline shift. Ventricular caliber is appropriate. The fourth ventricle is midline. The basal cisterns are patent. Benson-white differentiation is maintained. The paranasal sinuses and mastoid air cells are clear. No acute calvarial fracture. The soft tissues about the skull base and scalp are unremarkable. The globes and orbits are unremarkable. IMPRESSION: No acute intracranial findings. Electronically signed by Rock Morales 05-20-2024 4:41 PM
--- NOTE | 2024-05-20 17:02 | CT Scan Report ---
HISTORY: Hypoxia. TECHNIQUE: Helical CT angiography of the chest was performed following uneventful administration 119 mL of Optiray 320 IV contrast. Coronal and sagittal 3D MIP reconstructions are provided. COMPARISON: None. FINDINGS: Small subsegmental pulmonary emboli are identified involving both upper lobes and the right lower lobe. No large or central PE. No evidence of right heart strain. Top normal heart size. No evidence of aortic dissection or acute aortic process. Enlarged bilateral hilar lymph nodes. Right hilar lymph node measuring 2.9 x 1.8 cm on series 10 image 153. Thoracic esophagus is unremarkable. Included thyroid gland is unremarkable. The soft tissues of the chest wall are unremarkable. Included upper abdomen is unremarkable. Mild atelectasis at the lung bases. Respiratory motion artifact limits evaluation of the lungs. No focal consolidation concerning for pneumonia. No pneumothorax or effusion. The central tracheobronchial tree is patent. Mild degenerative changes of the spine. No acute osseous abnormality. IMPRESSION: 1. Subsegmental pulmonary emboli involving the bilateral upper and lower lobes. No large or central PE. No evidence of right heart strain. 2. No evidence of acute aortic process. 3. Nonspecific bilateral hilar lymphadenopathy. This could be reactive or less likely malignant. Follow-up chest CT with contrast is recommended in 3 months to ensure resolution. 4. Additional chronic and/or incidental findings as detailed above. Findings were discussed with the ordering provider Dr. Francesco Nava at 5 PM on 05/20/2024. Electronically signed by Rock Morales 05-20-2024 5:02 PM
--- NOTE | 2024-05-20 17:04 | XRay Report ---
HISTORY: Weakness. TECHNIQUE: Portable AP radiograph of the chest COMPARISON: Chest radiograph dated 11/08/2017. FINDINGS: No focal consolidation. Enlarged central pulmonary arteries, which could be seen with pulmonary arterial hypertension. Top normal heart size. Bilateral hilar lymphadenopathy. No pneumothorax or effusion. No acute osseous abnormality. Included upper abdomen is unremarkable. IMPRESSION: 1. No acute cardiopulmonary findings. 2. Enlarged central pulmonary arteries, which could be seen with pulmonary arterial hypertension. 3. Bilateral hilar lymphadenopathy for which follow-up chest CT with contrast is recommended in 3 months. Electronically signed by Rock Morales 05-20-2024 5:04 PM
[2024-05-20 17:24] LABS: T4 Free Thyroxine 0.71 ng/dl (0.61-1.60)
[2024-05-20] MEDS: Heparin IV Adult Wt-Based Standard w/ INITIAL Bolus Protocol IV STA (17:55)
[2024-05-20] MEDS: ACETAMINOPHEN 500 MG TAB PO STA (17:56)
[2024-05-20] MEDS ORDERED: HEPARIN 25000 UNIT/500 ML D5W 25,000 UNITS/500 ML BAG IV SCH (18:00)
[2024-05-20 18:13] LABS: Partial Thromboplastin Ratio 1.2; Partial Thromboplastin Time 32 Seconds (21-31)
[2024-05-20] MEDS: HEPARIN SOD (PORCINE) 1000 UNIT/ML IV ONE (18:20)
[2024-05-20] MEDS: HEPARIN 25000 UNIT/500 ML D5W 25,000 UNITS/500 ML BAG IV SCH (18:20)
[2024-05-20] MEDS: OSELTAMIVIR PHOSPHATE 75 MG CAP PO STA (18:26)
--- NOTE | 2024-05-20 18:31 | History & Physical Report ---
Date of Service May 20, 2024 Assessment & Plan (1) Acute hypoxic respiratory failure: (2) Bilateral pulmonary embolism: (3) Influenza A: (4) Obesity hypoventilation syndrome: (5) Tobacco use disorder: (6) Hilar lymphadenopathy: Plan This is a 69 y/o female with history of tobacco use and mood disorder who presents to the ED after her family found her confused and lethargic at home. On initial EMS evaluation, pt was febrile. On initial presentation to the ED, she was markedly hypoxic, tachypneic, and wheezing. Work-up in the ED revealed [employer] testing positive for influenza A. CTA chest showed subsegmental PE in the bilateral upper and lower lobes but no central or large PE, no right heart strain, +non-specific bilateral hilar LAD. Pt currently stable on 6L O2. Referred for admission for further evaluation and management. #Acute hypoxic respiratory failure - multifactorial #Obesity hypoventilation syndrome #Bronchitis Admit to PCU Continue supplemental O2 support DuoNebs QID and Q2 hrs prn IV methylpred 40 mg Q8 hrs Mucinex BID, incentive spirometry Empiric antibiotic coverage - broad spectrum since smoker. Added cefepime, doxycycline for now MRSA swab, sputum culture Consult pulmonology Labs in the AM - CBC, BMP, LFTs #Bilateral subsegmental PE Heparin gtt started in the ED - continue per protocol Will ultimately need to transition to oral anticoagulation Hypercoagulable work-up ordered in the ED #Influenza A Tamiflu 75 mg po BID x 5 days Droplet isolation precautions Symptomatic management #Bilateral hilar adenopathy May be reactive but will need f/u CT as outpatient in 3 months Pt seen and reviewed with collaborating physician, Dr. Gamez. Plan of care discussed and as outlined above. Code status: full code DVT prophylaxis: on heparin gtt Will also need outpatient evaluation for the following on CT abd/pel: Small subcentimeter sclerotic foci are seen throughout the osseous structures. These are nonspecific and favor small bone islands, but blastic metastases could have a similar appearance and cannot be excluded. These could be correlated with nuclear medicine bone scan. Yakov Machado PA-C History of Present Illness Chief Complaint: confusion, lethargic Primary Care Provider: NO PCP This is a 69 y/o female with history of tobacco use and mood disorder who presents to the ED after her family found her confused and lethargic at home. Pt is a poor historian so additional history obtained from her daughter and granddaughter at the bedside and the ED provider, review of EMS report note. Pt's family has been ill with influenza A over the last week. Pt started with symptoms two days ago - mainly complaining of headache and dry cough. Pt also notes she hasn't been eating well and had some abdominal discomfort for several days but attributes this to constipation. However, EMS report states that family at the scene report pt has had vomiting and diarrhea for the last several days. She denies chest pain or shortness of breath. This morning, her daughter found her sleeping on the cough while she was watching her granddaughter - pt was difficult to arouse and was confused so family called EMS. On initial evaluation pt was noted to be febrile at 101.7F so acetaminophen given en route. On arrival to the ED, pt was significantly hypoxic (documented sats in the 40s) and was severely wheezing and tachypneic, so placed on 15 L via NRB with improvement of sats. Pt reports that she smokes 3-4 cig/day. She has not seen a PCP in years. Feels like she is overall healthy and so hasn't needed to go. Pt does not recall the events from earlier today that led to her arrival in the ED. Allergies Allergy/AdvReac Type Severity Reaction Status Date / Time No Known Allergies Allergy Unverified 05/20/24 17:30 Home Medications Medication Instructions Recorded Confirmed Type acetaminophen 500 mg tablet 500 mg PO Q6H PRN Pain 05/20/24 05/20/24 History Past Med/Surg History Problem List (Updated 05/20/24 @ 20:10 by Francesco Nava M.D.) Hilar lymphadenopathy Tobacco use disorder (Acute) Obesity hypoventilation syndrome Influenza A (Acute) Bilateral pulmonary embolism (Acute) Acute hypoxic respiratory failure (Acute) Medical History Mood disorder Tobacco use disorder Surgical History No significant past surgical history Family History (Updated 10/26/18 @ 23:24 by Warren Castellanos) Other No significant family history Social History (Updated 05/20/24 @ 19:36 by Kiana Machado PA-C) Smoking Status: Current every day smoker Tobacco Type: Cigarettes Hx Alcohol Use: No Hx Substance Use: No Preferred Language: Lithuanian marital status: Current Living Situation Comment: camper with family nearby current occupational status: unemployed Feels Safe at Home: Yes Review of Systems Review of Systems: All systems reviewed & are unremarkable except as noted in Subjective Physical Exam Physical Exam: General: awake, alert, sitting up comfortably in bed, on 6L via NC HEENT: no scleral icterus, slightly dry oral mucosa Neck: supple, trachea midline Heart: RRR, no M/G/R Lungs: diminished air movement with diffuse wheezing, coarse BS throughout Abdomen: soft, +BS Extremities: no pedal edema, distal pulses intact and equal Neurologic: has difficulty answering questions about today's events, Ox3 at present, moving all extremities, no focal deficits Results & Data Results & Data Vital Signs (Past 12 Hours) Vital Signs Temp Pulse Resp BP Pulse Ox O2 Del Method O2 Flow Rate 05/20/24 17:52 36.6 C 05/20/24 15:12 20 100 Non-rebreather 15 05/20/24 15:06 99 Non-rebreather 15 05/20/24 15:06 47 L Room Air 05/20/24 15:06 37.9 C H 92 H 28 H 109/57 L 47 L Room Air 05/20/24 15:00 94 H Laboratory Results Lab Results 05/20/24 05/20/24 05/20/24 Range/Units 15:05 15:08 15:16 WBC 6.38 (4.8-10.8) K/ul RBC 4.54 (4.20-5.40) M/uL Hgb 14.0 (12.0-16.0) g/dl POC Hgb 14.3 (12.0-16.0) g/dl Hct 41.1 (37.0-47.0) % POC Hct 42 (37-47) % MCV 90.5 (80.0-100.0) fL MCH 30.8 (25.0-34.0) pg MCHC 34.1 (32.0-36.0) g/dL RDW Std Deviation 43.6 (36.4-46.3) fL RDW Coeff of Chad 13.2 (11.5-14.5) % Plt Count 227 (130-400) K/uL MPV 9.7 (9.4-12.4) fL Immature Gran % (Auto) 0.6 % Neut % (Auto) 70.5 % Lymph % (Auto) 16.0 % Richardson % (Auto) 12.5 % Eos % (Auto) 0.2 % Baso % (Auto) 0.2 % Neut # (Auto) 4.50 (1.40-6.50) K/uL Lymph # (Auto) 1.02 L (1.20-3.40) K/uL Richardson # (Auto) 0.80 H (0.11-0.59) K/uL Eos # (Auto) 0.01 (0.00-0.50) K/uL Baso # (Auto) 0.01 (0.00-0.20) K/uL Immature Gran # (Auto) 0.04 (0.01-0.20) K/uL PT 11.4 (9.0-12.0) Seconds INR 1.1 (0.9-1.1) APTT 32 H (21-31) Seconds PTT Ratio 1.2 VBG pH 7.30 L (7.36-7.41) VBG pCO2 65 H (38-50) mmHg VBG pO2 61 mmHg VBG HCO3 32 mmol/L VBG O2 Saturation 87.1 % VBG Base Excess 3.6 mEq/L POC Sodium 132 L (135-144) mmol/L Sodium 133 L (136-145) mmol/L POC Potassium 4.5 (3.3-5.0) mmol/L Potassium 4.5 (3.5-5.1) mmol/L POC Chloride 93 L (101-112) mmol/L Chloride 94 L (98-107) mmol/L Carbon Dioxide 33 H (21-32) mmol/L POC Total CO2 29 (24-31) mmol/L Anion Gap 6 (3-11) POC Anion Gap 15.0 L (16-25) mmol/L POC BUN 21 H (7-18) mg/dl BUN 22 (6-23) mg/dl Creatinine 0.66 (0.6-1.2) mg/dl POC Creatinine 0.7 (0.6-1.3) mg/dl Est Cr Clr Drug Dosing 107.6 ml/min eGFR 96.09 BUN/Creatinine Ratio 33.3 H (10-20) Glucose 133 H (70-99(Fasting)) mg/dl POC Glucose (other) 131 H (70-99) mg/dl Lactate 0.9 (0.4-2.0) mmol/L Calcium 8.6 (8.6-10.3) mg/dl POC Ioniz Calcium Fabian 1.08 L (1.12-1.32) mmol/l Magnesium 1.7 (1.7-2.4) mg/dl Total Bilirubin 0.5 (0.2-1.0) mg/dl AST 21 (13-39) U/L ALT 17 (7-52) U/L Alkaline Phosphatase 45 (34-104) U/L Total Creatine Kinase 128 (26-192) U/L Troponin I High Sens 13.9 (0-14) pg/ml B-Natriuretic Peptide 330 H (0-100) pg/ml Total Protein 7.2 (6.0-8.3) gm/dl Albumin 4.1 (3.4-5.0) gm/dl Globulin 3.1 (2.5-4.0) gm/dl Albumin/Globulin Ratio 1.3 (0.9-2) Lipase 20 (11-82) U/L Procalcitonin 0.31 (0-0.5) ng/ml TSH 0.280 L (0.300-4.500) uIu/ml Free T4 0.71 (0.61-1.60) ng/dl Ethyl Alcohol mg/dL < 10.0 (<10.0) mg/dl Adenovirus (PCR) Not Detected (NotDetected) B. pertussis DNA (PCR) Not Detected (NotDetected) B.parapertussis DNA PCR Not Detected (NotDetected) C. pneumoniae DNA (PCR) Not Detected (NotDetected) Coronavirus OC43 (PCR) Not Detected (NotDetected) Coronavirus HKU1 (PCR) Not Detected (NotDetected) Coronavirus 229E (PCR) Not Detected (NotDetected) SARS-CoV-2 (PCR) Not Detected (NotDetected) Coronavirus NL63 (PCR) Not Detected (NotDetected) Human Metapneumovir PCR Not Detected (NotDetected) Influenza A (H3) PCR DETECTED A (NotDetected) Influenza Type B (PCR) Not Detected (NotDetected) M. pneumoniae (PCR) Not Detected (NotDetected) Parainfluenza 1 (PCR) Not Detected (NotDetected) Parainfluenza 2 (PCR) Not Detected (NotDetected) Parainfluenza 3 (PCR) Not Detected (NotDetected) Parainfluenza 4 (PCR) Not Detected (NotDetected) RSV (PCR) Not Detected (NotDetected) Entero/Rhino (PCR) Not Detected (NotDetected) Diagnostic Findings Chest X-Ray 05/20/24 15:00 HISTORY: Weakness. TECHNIQUE: Portable AP radiograph of the chest COMPARISON: Chest radiograph dated 11/08/2017. FINDINGS: No focal consolidation. Enlarged central pulmonary arteries, which could be seen with pulmonary arterial hypertension. Top normal heart size. Bilateral hilar lymphadenopathy. No pneumothorax or effusion. No acute osseous abnormality. Included upper abdomen is unremarkable. IMPRESSION: 1. No acute cardiopulmonary findings. 2. Enlarged central pulmonary arteries, which could be seen with pulmonary arterial hypertension. 3. Bilateral hilar lymphadenopathy for which follow-up chest CT with contrast is recommended in 3 months. Electronically signed by Rock Morales 05-20-2024 5:04 PM Abdomen/Pelvis CT 05/20/24 15:03 HISTORY: Hypoxia and altered mental status. Nausea, vomiting, diarrhea TECHNIQUE: Helical CT imaging of the abdomen pelvis was performed following uneventful administration 119 mL of Optiray 320 IV contrast. COMPARISON: None. FINDINGS: Mild atelectasis at the lung bases. The liver, gallbladder, spleen, adrenal glands, and pancreas are unremarkable. Cortical scarring along the superior pole of the right kidney. Kidneys are otherwise unremarkable. The stomach, duodenum, and small bowel loops are unremarkable. The colon is normal in caliber. Normal appendix is best visualized on coronal images. No ascites or pneumoperitoneum. No abdominal aortic aneurysm. No suspicious lymphadenopathy. The uterus and ovaries are unremarkable. The soft tissues of the body wall are unremarkable. Mild degenerative changes of the spine. Small subcentimeter sclerotic foci are seen throughout the osseous structures. These are nonspecific in favor small bone islands, but blastic metastases could have a similar appearance and cannot be excluded. IMPRESSION: 1. No acute findings in the abdomen or pelvis. 2. Small subcentimeter sclerotic foci are seen throughout the osseous structures. These are nonspecific and favor small bone islands, but blastic metastasescould have a similar appearance and cannot be excluded. These could be correlated with nuclear medicine bone scan. 3. Additional chronic and/or incidental findings as above. Electronically signed by Rock Morales 05-20-2024 4:39 PM Chest CTA 05/20/24 15:03 HISTORY: Hypoxia. TECHNIQUE: Helical CT angiography of the chest was performed following uneventful administration 119 mL of Optiray 320 IV contrast. Coronal and sagittal 3D MIP reconstructions are provided. COMPARISON: None. FINDINGS: Small subsegmental pulmonary emboli are identified involving both upper lobes and the right lower lobe. No large or central PE. No evidence of right heart strain. Top normal heart size. No evidence of aortic dissection or acute aortic process. Enlarged bilateral hilar lymph nodes. Right hilar lymph node measuring 2.9 x 1.8 cm on series 10 image 153. Thoracic esophagus is unremarkable. Included thyroid gland is unremarkable. The soft tissues of the chest wall are unremarkable. Included upper abdomen is unremarkable. Mild atelectasis at the lung bases. Respiratory motion artifact limits evaluation of the lungs. No focal consolidation concerning for pneumonia. No pneumothorax or effusion. The central tracheobronchial tree is patent. Mild degenerative changes of the spine. No acute osseous abnormality. IMPRESSION: 1. Subsegmental pulmonary emboli involving the bilateral upper and lower lobes. No large or central PE. No evidence of right heart strain. 2. No evidence of acute aortic process. 3. Nonspecific bilateral hilar lymphadenopathy. This could be reactive or less likely malignant. Follow-up chest CT with contrast is recommended in 3 months to ensure resolution. 4. Additional chronic and/or incidental findings as detailed above. Findings were discussed with the ordering provider Dr. Francesco Nava at 5 PM on 05/20/2024. Electronically signed by Rock Morales 05-20-2024 5:[address] 05/20/24 15:03 HISTORY: Altered mental status. TECHNIQUE: CT the head without contrast. Axial, sagittal, and coronal reformats are provided. COMPARISON: None FINDINGS: No evidence of acute intracranial hemorrhage, abnormal extra-axial fluid collection, mass effect, or midline shift. Ventricular caliber is appropriate. The fourth ventricle is midline. The basal cisterns are patent. Benson-white differentiation is maintained. The paranasal sinuses and mastoid air cells are clear. No acute calvarial fracture. The soft tissues about the skull base and scalp are unremarkable. The globes and orbits are unremarkable. IMPRESSION: No acute intracranial findings. Electronically signed by Rock Morales 05-20-2024 4:41 PM Medications Administered Heparin Sodium/Dextrose (Heparin 43953 Unit/500 Ml D5w) 25,000 units in 500 mls @ 30 mls/hr IV .[id number] PAUL; Protocol Stop: 06/19/24 18:29 Last Admin: 05/20/24 18:20 Dose: 1,500 units/hr, 30 mls/hr Documented By: Co-signed By: GEORGIANA Discontinued Medications Acetaminophen (Acetaminophen 500 Mg Tab) 1,000 mg PO NOW STA Stop: 05/20/24 17:43 Last Admin: 05/20/24 17:56 Dose: Not Given Documented By: GEORGIANA Albuterol (Albut/Ipratrop 3mg/0.5mg Neb 3 Ml Vial) 12 ml NEB ONE ONE; Protocol Stop: 05/20/24 15:01 Last Admin: 05/20/24 15:12 Dose: 12 ml Documented By: BRYCE Heparin Sodium (Porcine) (Heparin Sod (Porcine) 1000 Unit/Ml) 1 units IV NOW ONE Stop: 05/20/24 17:58 Last Admin: 05/20/24 18:20 Dose: 7,000 units Documented By: Co-signed By: GEORGIANA Heparin Sodium/Dextrose (Heparin Iv Adult Wt-Based Standard W/ Initial Bolus Protocol) 1 each IV NOW STA; Protocol Stop: 05/20/24 17:43 Last Admin: 05/20/24 17:55 Dose: 1 each Documented By: GEORGIANA Ioversol (Optiray 320 125ml) 119 ml IV ONCE ONE Stop: 05/20/24 16:04 Last Admin: 05/20/24 16:04 Dose: 119 ml Documented By: KAYY Methylprednisolone (Methylprednisolone 125 Mg/2 Ml Vial) 125 mg IV NOW STA Stop: 05/20/24 15:05 Last Admin: 05/20/24 16:14 Dose: 125 mg Documented By: GEORGIANA Oseltamivir Phosphate (Oseltamivir Phosphate 75 Mg Cap) 75 mg PO NOW STA Stop: 05/20/24 17:43 Last Admin: 05/20/24 18:26 Dose: 75 mg Documented By: MR Supervising Physician Co-Signing Physician Notes Attending Addendum: Case reviewed with the advanced practitioner. I have personally performed a history and physical examination on the patient. I have reviewed the advanced practitioner's documentation on the date of service referenced in note, and I agree with, and take responsibility for the plan of care. please refer to her notes for full details patient seen and examined, records reviewed by myself as well on exam, patient Seen sitting up in bed, on 6 L of oxygen via nasal cannula, comfortable, not in distress, not tachypneic, in good spirits Having her dinner States she feels better overall Breathing is improving Denies chest pain, dizziness, palpitations, nausea, abdominal pain No other new symptoms VS noted and reviewed oriented X 3, not in distress, speaks in sentences with no effort nor accessory muscle use normal rate, regular rhythm, no murmurs Positive bilateral Rhonchi/crackles at the bases, no wheezing non distended, soft, nontender no bipedal edema, erythema, warmth no neuro deficits all labs, imaging noted and reviewed ASSESSMENT AND PLAN> Acute hypoxic respiratory failure Multifactorial: Acute bilateral pulmonary embolism Influenza A infection, acute bronchitis, possible underlying COPD with exacerbation In the setting of morbid obesity Unclear precipitating factor for acute PE No recent travels, patient is active, no family history of venous thromboembolism Hypercoagulable workup ordered at the ED Chest CT showing nonspecific lymphadenopathy, CT abdomen and pelvis showing sclerotic foci in the spine, possible blastic metastasis, will need workup for underlying CA Heparin drip Tamiflu, empiric antibiotics including cefepime plus doxycycline Nebs every 6 hours, hypertonic saline, Mucinex, flutter valve Repeat ABG this evening other diagnoses and plan of care as per advanced practitioner's notes I spent a total of 35 minutes coordinating, documenting, and providing care for this patient, excluding time spent in the performance of separately billed services or time spent by another provider/QHP. Bryson Gamez MD
[2024-05-20] MEDS: ALBUT/IPRATROP 3MG/0.5MG NEB 3 ML VIAL NEB SCH (20:12)
[2024-05-20] MEDS: ALBUT/IPRATROP 3MG/0.5MG NEB 3 ML VIAL NEB STA (20:16)
[2024-05-20] MEDS: SODIUM CHLOR 7% 4 ML NEB NEB SCH (20:16)
[2024-05-20] MEDS: CEFEPIME 2000MG 2,000 MG/20 ML SYR IV SCH (20:48)
[2024-05-20] MEDS: guaiFENesin 600 MG TABCR PO SCH (20:48)
[2024-05-20] MEDS: DOXYCYCLINE HYCLATE 100 MG in DEXTROSE 5% MINI-B 100 ML IV SCH (20:51)
[2024-05-20] MEDS ORDERED: methylPREDNISolone 125 MG/2 ML VIAL IV SCH (21:00)
[2024-05-20 21:52] LABS: HCO3 ABG 31 mmol/L (19-24); PCO2 ABG 65 mmHg (35-46); PO2 ABG 68 mmHg (80-95); pH ABG 7.28 (7.35-7.45)
[2024-05-20 21:53] LABS: Allen Test Pos (Pos)
[2024-05-20] MEDS ORDERED: ACETAMINOPHEN 325 MG TAB PO PRN (23:01)
[2024-05-20 23:30] LABS: HCO3 VBG 33 mmol/L; Oxygen Saturation VBG 94.3 %; PCO2 VBG 68 mmHg (38-50); PO2 VBG 71 mmHg; pH VBG 7.29 (7.36-7.41)
[2024-05-21] MEDS: MAGNESIUM SULFATE / D5W 1 GM/100 ML BAG IV SCH (00:04)
[2024-05-21] MEDS: methylPREDNISolone 40 MG in SYRINGE 0 ML IV SCH (00:05)
[2024-05-21] MEDS: SODIUM CHLORIDE 0.9% 500 ML IV ONE (00:05)
[2024-05-21 01:02] LABS: Appearance Urine Clear (Clear); Bacteria Urine Automated None Seen (None Seen); Bilirubin Urine Negative (Negative); Blood Urine Negative (Negative); Color Urine Dark Yellow; Epithelial Cell Urine Auto 0-2 /hpf (0-2); Glucose Urine UA 1+ (Negative); Ketones Urine Negative (Negative); Leukocyte Esterase Urine Negative (Negative); Nitrite Urine Negative (Negative); Protein Urine 1+ (Negative); RBC Urine Automated 0-2 /hpf (0-2); Specific Gravity Urine 1.044 (1.000-1.030); Urobilinogen Urine Negative (Negative); WBC Urine Automated 0-5 /hpf (0-5)
[2024-05-21 01:21] LABS: Amphetamines+Metham, Urine Neg (Neg); Barbiturates, Urine Neg (Neg); Benzodiazepine, Urine Neg (Neg); Cocaine, Urine Neg (Neg); Fentanyl, Urine Neg (Neg); MDMA (Ecstacy), Urine Neg (Neg); Marijuana, Urine Neg (Neg); Methadone, Urine Neg (Neg); Opiate, Urine Neg (Neg); Phencyclidine, Urine Neg (Neg)
[2024-05-21 01:22] LABS: ANTI-Xa, UFH(UnfractionatedHep 0.79 IU/ml (0.3-0.7)
[2024-05-21] MEDS ORDERED: GLUCOSE 10 TAB/TUBE PO PRN (01:28)
[2024-05-21] MEDS ORDERED: GLUCAGON FOR INJ 1 MG VIAL SQ PRN (01:28)
[2024-05-21] MEDS ORDERED: CARBOHYDRATES FOR HYPOGLYCEMIA PO PRN (01:28)
[2024-05-21] MEDS ORDERED: GLUCOSE 40% GEL 15 GM TUBE PO PRN (01:28)
[2024-05-21] MEDS ORDERED: DEXTROSE 50% 50 ML SYRINGE IV PRN (01:28)
--- NOTE | 2024-05-21 03:22 | CT Scan Report ---
Exam(s): CT HEAD Without Contrast EXAM: CT Head Without Intravenous Contrast CLINICAL HISTORY: Reason for exam: ams, iv heparin. TECHNIQUE: Axial computed tomography images of the head/brain without intravenous contrast. CTDI is 37.87 mGy and DLP is 625.8 mGy-cm. Automated exposure control was utilized for the study. A dose lowering technique was utilized adhering to the principles of ALARA. COMPARISON: Prior head CT from May 20, 2024 at 3:58 PM. FINDINGS: Brain: Unremarkable. No hemorrhage. No significant white matter disease. No edema. Ventricles: Unremarkable. No ventriculomegaly. Bones/joints: Unremarkable. No acute fracture. Soft tissues: Unremarkable. Sinuses: Unremarkable as visualized. No acute sinusitis. Mastoid air cells: Unremarkable as visualized. No mastoid effusion. IMPRESSION: No evidence of acute intracranial pathology. Electronically signed by: Jessica Carlton MD 05/21/24 03:21 AM
[2024-05-21] MEDS: INSULIN ASPART PER UNIT CHARGE SC SCH ×2 (03:47→13:07)
[2024-05-21 06:06] LABS: Base Excess VBG 4.4 mEq/L; HCO3 VBG 33 mmol/L; Oxygen Saturation VBG 92.6 %; PCO2 VBG 69 mmHg (38-50); PO2 VBG 64 mmHg; pH VBG 7.29 (7.36-7.41)
[2024-05-21 06:18] LABS: Eosinophils # (auto) 0.05 K/uL (0.00-0.50); Eosinophils % (auto) 0.8 %; Hematocrit (blood only) 41.8 % (37.0-47.0); Hemoglobin 14.1 g/dl (12.0-16.0); Immature Granulocytes # (auto) 0.05 K/uL (0.01-0.20); Immature Granulocytes % (auto) 0.8 %; Lymphocytes # (auto) 1.06 K/uL (1.20-3.40); Lymphocytes % (auto) 17.7 %; Mean Corpuscular Hemoglobin 31.2 pg (25.0-34.0); Mean Corpuscular Hgb Conc 33.7 g/dL (32.0-36.0); Mean Corpuscular Volume 92.5 fL (80.0-100.0); Mean Platelet Volume 9.7 fL (9.4-12.4); Neutrophils # (auto) 4.52 K/uL (1.40-6.50); Neutrophils % (auto) 75.7 %; Platelet Count 206 K/uL (130-400); RDW Coefficient of Variation 13.1 % (11.5-14.5); RDW Standard Deviation 44.4 fL (36.4-46.3); Red Blood Count 4.52 M/uL (4.20-5.40); White Blood Count 5.98 K/ul (4.8-10.8)
[2024-05-21 06:32] LABS: Albumin Level 4.1 gm/dl (3.4-5.0); BUN Creatinine Ratio 36.2 (10-20); Bilirubin Direct 0.1 mg/dl (0-0.2); Bilirubin,Total 0.4 mg/dl (0.2-1.0); Calcium 8.9 mg/dl (8.6-10.3); Creatinine Clr Calc Pharmacy 122.4 ml/min; Potassium 4.5 mmol/L (3.5-5.1); Total Protein 7.3 gm/dl (6.0-8.3)
[2024-05-21] MEDS ORDERED: PHARMACY GLYCEMIC MGMT CONSULT PRN (08:04)
[2024-05-21 09:11] LABS: Estimated Average Glucose 123 mg/dl; Hemoglobin A1C 5.9 % (4.5-5.6)
--- NOTE | 2024-05-21 09:51 | Hospitalist Progress Note ---
Date of Service May 21, 2024 Assessment & Plan (1) Acute hypoxic respiratory failure: (2) Bilateral pulmonary embolism: (3) Influenza A: (4) Obesity hypoventilation syndrome: (5) Tobacco use disorder: (6) Hilar lymphadenopathy: Plan This is a 69 y/o female with history of tobacco use and mood disorder who presents to the ED after her family found her confused and lethargic at home. Acute hypoxic and hypercarbic Respiratory Failure Bilateral pulmonary emboli Influenza infection Chronic Smoker Morbid Obesity Pt with increased oxygen requirement VBG with pH 7.29, pCO2 69, HCO3 33 Chest XRAY concerning for enlarged central arteries and pulm HTN CTA chest noting bilateral PEs without heart strain Respiratory viral panel positive for influenza MRSA nares negative procal negative Blood cultures x2 sets NGTD respiratory failure likely multifactorial cause- has PEs, influenza infection, chronic smoker, obese Tamiflu PRN nebs Nicotine patch Pulmonology consult, appreciate recs Empiric Cefepime and steroids discontinued by pulm Continue with doxycycline IV heparin for the PEs, will transition to DOAC once cost confirmed for pt Wean oxygen as tolerated, CPAP use at night Echo pending to confirm no heart strain Continue to monitor Acute metabolic Encephalopathy Likely in setting of above Tox screen negative Head CT x 2 negative Continue use of CPAP for hypercarbia Delirium precautions. Frequent reorientation, avoid sedating medications as able Improving Prediabetes Pt with noted hyperglycemia Hgba1c of 5.9 Insulin sliding scale Glycemic consult while on steroids Continue to monitor Bilateral hilar lymphadenopathy Noted on chest imaging Repeat CT recommended in 3 months Possible blastic Mets Noted on CT abd/pelvis Nuclear bone scan needed for followup- outpt Diet: DMII DVT prophylaxis: currently on heparin drip Dispo: PT/OT ordered for further recs Admission and Anticipated Discharge Date Admission Date: May 20, 2024 Subjective Aylin was seen sitting up in bed Alert and oriented x3 Was not responding to painful stimuli overnight, repeat head CT overnight unremarkable States she is a smoker, denied use of oxygen at baseline Review of Systems Review of Systems: All systems reviewed & are unremarkable except as noted in Subjective Physical Exam Physical Exam: General: Alert, orientedx3. No acute distress Psych: Appropriate mood and affect HEENT: NC/AT CV: RRR Resp: Breath sounds clear bilaterally, no increased effort of breathing Abdomen: Soft, nontender, nondistended Extremities: No edema in lower extremities bilaterally. Results & Data Results & Data Vital Signs (Past 12 Hours) Vital Signs Temp Pulse Resp BP BP Pulse Ox O2 Del Method 05/21/24 08:00 36.6 C 65 H 118/65 95 Room Air 05/21/24 07:22 20 90 Nasal Cannula 05/21/24 04:54 BiPAP 05/21/24 04:34 77 22 97 05/20/24 23:40 82 05/20/24 23:35 77 21 93 05/20/24 21:49 101/69 90 Nasal Cannula 05/20/24 21:30 100 H 26 H 99/64 L 89 L Nasal Cannula 05/20/24 21:00 99 H 26 H 121/57 L 91 Nasal Cannula O2 Flow Rate FiO2 05/21/24 08:00 05/21/24 07:22 9 05/21/24 04:54 05/21/24 04:34 50 05/20/24 23:40 05/20/24 23:35 60 05/20/24 21:49 10 05/20/24 21:30 8 05/20/24 21:00 6 Diagnostic Findings Chest X-Ray 05/20/24 15:00 HISTORY: Weakness. TECHNIQUE: Portable AP radiograph of the chest COMPARISON: Chest radiograph dated 11/08/2017. FINDINGS: No focal consolidation. Enlarged central pulmonary arteries, which could be seen with pulmonary arterial hypertension. Top normal heart size. Bilateral hilar lymphadenopathy. No pneumothorax or effusion. No acute osseous abnormality. Included upper abdomen is unremarkable. IMPRESSION: 1. No acute cardiopulmonary findings. 2. Enlarged central pulmonary arteries, which could be seen with pulmonary arterial hypertension. 3. Bilateral hilar lymphadenopathy for which follow-up chest CT with contrast is recommended in 3 months. Electronically signed by Rock Morales 05-20-2024 5:04 PM Abdomen/Pelvis CT 05/20/24 15:03 HISTORY: Hypoxia and altered mental status. Nausea, vomiting, diarrhea TECHNIQUE: Helical CT imaging of the abdomen pelvis was performed following uneventful administration 119 mL of Optiray 320 IV contrast. COMPARISON: None. FINDINGS: Mild atelectasis at the lung bases. The liver, gallbladder, spleen, adrenal glands, and pancreas are unremarkable. Cortical scarring along the superior pole of the right kidney. Kidneys are otherwise unremarkable. The stomach, duodenum, and small bowel loops are unremarkable. The colon is normal in caliber. Normal appendix is best visualized on coronal images. No ascites or pneumoperitoneum. No abdominal aortic aneurysm. No suspicious lymphadenopathy. The uterus and ovaries are unremarkable. The soft tissues of the body wall are unremarkable. Mild degenerative changes of the spine. Small subcentimeter sclerotic foci are seen throughout the osseous structures. These are nonspecific in favor small bone islands, but blastic metastases could have a similar appearance and cannot be excluded. IMPRESSION: 1. No acute findings in the abdomen or pelvis. 2. Small subcentimeter sclerotic foci are seen throughout the osseous structures. These are nonspecific and favor small bone islands, but blastic metastasescould have a similar appearance and cannot be excluded. These could be correlated with nuclear medicine bone scan. 3. Additional chronic and/or incidental findings as above. Electronically signed by Rock Morales 05-20-2024 4:39 PM Chest CTA 05/20/24 15:03 HISTORY: Hypoxia. TECHNIQUE: Helical CT angiography of the chest was performed following uneventful administration 119 mL of Optiray 320 IV contrast. Coronal and sagittal 3D MIP reconstructions are provided. COMPARISON: None. FINDINGS: Small subsegmental pulmonary emboli are identified involving both upper lobes and the right lower lobe. No large or central PE. No evidence of right heart strain. Top normal heart size. No evidence of aortic dissection or acute aortic process. Enlarged bilateral hilar lymph nodes. Right hilar lymph node measuring 2.9 x 1.8 cm on series 10 image 153. Thoracic esophagus is unremarkable. Included thyroid gland is unremarkable. The soft tissues of the chest wall are unremarkable. Included upper abdomen is unremarkable. Mild atelectasis at the lung bases. Respiratory motion artifact limits evaluation of the lungs. No focal consolidation concerning for pneumonia. No pneumothorax or effusion. The central tracheobronchial tree is patent. Mild degenerative changes of the spine. No acute osseous abnormality. IMPRESSION: 1. Subsegmental pulmonary emboli involving the bilateral upper and lower lobes. No large or central PE. No evidence of right heart strain. 2. No evidence of acute aortic process. 3. Nonspecific bilateral hilar lymphadenopathy. This could be reactive or less likely malignant. Follow-up chest CT with contrast is recommended in 3 months to ensure resolution. 4. Additional chronic and/or incidental findings as detailed above. Findings were discussed with the ordering provider Dr. Francesco Nava at 5 PM on 05/20/2024. Electronically signed by Rock Morales 05-20-2024 5:[address] 05/20/24 15:03 HISTORY: Altered mental status. TECHNIQUE: CT the head without contrast. Axial, sagittal, and coronal reformats are provided. COMPARISON: None FINDINGS: No evidence of acute intracranial hemorrhage, abnormal extra-axial fluid collection, mass effect, or midline shift. Ventricular caliber is appropriate. The fourth ventricle is midline. The basal cisterns are patent. Benson-white differentiation is maintained. The paranasal sinuses and mastoid air cells are clear. No acute calvarial fracture. The soft tissues about the skull base and scalp are unremarkable. The globes and orbits are unremarkable. IMPRESSION: No acute intracranial findings. Electronically signed by Rock Morales 05-20-2024 4:[address] 05/20/24 23:26 Exam(s): CT HEAD Without Contrast EXAM: CT Head Without Intravenous Contrast CLINICAL HISTORY: Reason for exam: ams, iv heparin. TECHNIQUE: Axial computed tomography images of the head/brain without intravenous contrast. CTDI is 37.87 mGy and DLP is 625.8 mGy-cm. Automated exposure control was utilized for the study. A dose lowering technique was utilized adhering to the principles of ALARA. COMPARISON: Prior head CT from May 20, 2024 at 3:58 PM. FINDINGS: Brain: Unremarkable. No hemorrhage. No significant white matter disease. No edema. Ventricles: Unremarkable. No ventriculomegaly. Bones/joints: Unremarkable. No acute fracture. Soft tissues: Unremarkable. Sinuses: Unremarkable as visualized. No acute sinusitis. Mastoid air cells: Unremarkable as visualized. No mastoid effusion. IMPRESSION: No evidence of acute intracranial pathology. Electronically signed by: Jessica Carlton MD 05/21/24 03:21 AM
[2024-05-21] MEDS: OSELTAMIVIR PHOSPHATE 75 MG CAP PO SCH (09:59)
--- NOTE | 2024-05-21 10:04 | Pulmonary Consultation ---
Date of Consultation May 21, 2024 Assessment & Plan (1) Acute hypoxic respiratory failure: (2) Bilateral pulmonary embolism: (3) Influenza A: (4) Hilar lymphadenopathy: Plan Impression: 69-year-old female with chronic hypercarbic respiratory failure (resting bicarb elevated at 33) likely secondary to COPD and potentially obesity hypoventilation syndrome admitted with influenza, and PEs. She is hemodynamically stable. Recommendations: 1. Acute PE: Hemodynamically stable. She is currently on heparin. Okay to transition to oral DOAC. Would recommend at least 3 to 6 months of anticoagulation. Utility of protein C protein S and many of the hypercoagulable studies ordered by the ER is poor in the setting of an acute clot. Recommend age-appropriate cancer screening in the outpatient setting 2. Mediastinal adenopathy: Recommend follow-up CT scan in 3 to 6 months. 3. Questionable COPD: No PFTs available. Patient is not bronchospastic currently. Discontinued scheduled DuoNebs and changed to as needed. She does not appear bronchospastic and steroids will be discontinued. No issues with mucociliary clearance so we will discontinue hypertonic saline as this may cause bronchospasm. Will place the patient on a trial of Anoro. Outpatient PFTs recommended. Smoking cessation recommended 4. No evidence of pneumonia. Cefepime and doxycycline would be inappropriate even if she were to have community-acquired pneumonia. Antibiotics to be discontinued and the patient followed clinically. 5. Influenza: Initiated on oseltamavir. 6. Hypoxemic and hypercarbic respiratory failure: Would titrate oxygen to maintain oxygen saturations around 89 to 90% given her concomitant hypercarbia. Can continue nocturnal BiPAP. Outpatient sleep evaluation through the [facility] system is recommended. Weight loss recommended. Total of 55 minutes was spent in evaluation management and coordination of care for this patient. Continue to follow with you. Feel free to contact us with questions or concerns History of Present Illness Attending Physician: Aundrea Velarde MD History of Present Illness Asked by hospitalist to assist in evaluation management this patient admitted with influenza, hypercarbic respiratory failure, altered mental status, and PE. History is obtained from discussion with the patient as well as review the [facility] medical record. The patient is a 69-year-old female with extensive history of tobacco abuse. No PFTs available in the outpatient setting. She denies use of inhalers oxygen or other respiratory adjuvants at home. She presented to the emergency room altered yesterday. She had a 1 week prior history of feeling poorly. Patient was hypoxemic in the emergency room. She was acidotic and hypercarbic. A CT angiogram was performed which showed subsegmental filling defects. She was initiated on heparin. She was treated with bronchodilators and steroids. There was some nonspecific adenopathy identified. No pneumonia. She is admitted to the hospitalist service. She did have a CT of the head which was unrevealing. This morning on my arrival the patient is awake. She is talking on the phone to her family and declines getting off the phone for evaluation. She appears in no respiratory distress. Apparently the patient has a history of medical noncompliance. Allergies Allergy/AdvReac Type Severity Reaction Status Date / Time No Known Allergies Allergy Unverified 05/20/24 17:30 Home Medications Medication Instructions Recorded Confirmed Type acetaminophen 500 mg tablet 500 mg PO Q6H PRN Pain 05/20/24 05/20/24 History Patient History Medical History Mood disorder Tobacco use disorder Surgical History No significant past surgical history Family History (Updated 10/26/18 @ 23:24 by Warren Castellanos) Other No significant family history Social History (Updated 05/20/24 @ 19:36 by Kiana Machado PA-C) Smoking Status: Current every day smoker Tobacco Type: Cigarettes Hx Alcohol Use: No Hx Substance Use: No Preferred Language: Latvian marital status: Current Living Situation Comment: camper with family nearby current occupational status: unemployed Feels Safe at Home: Yes Review of Systems Review of Systems: Please refer to admission H&P. No additions or deletions Physical Exam Constitutional: WD/WN, vitals as above Neck: trachea midline, no thyromegaly Respiratory: normal respiratory effort, lungs clear to auscultation Cardiovascular: RRR, no murmur, no edema Gastrointestinal (Abdomen): normal bowel sounds, soft, nontender, no hepatosplenomegaly Musculoskeletal: Extremities: extremities normal to inspection Skin: no rashes, warm and dry Neurologic: Nonfocal exam Lymphatic: no cervical lymphadenopathy Results & Data Results & Data Vital Signs (Past 12 Hours) Vital Signs Temp Pulse Resp BP BP Pulse Ox O2 Del Method 05/21/24 08:00 36.6 C 65 H 118/65 95 Room Air 05/21/24 07:22 20 90 Nasal Cannula 05/21/24 04:54 BiPAP 05/21/24 04:34 77 22 97 05/20/24 23:40 82 05/20/24 23:35 77 21 93 05/20/24 21:49 101/69 90 Nasal Cannula 05/20/24 21:30 100 H 26 H 99/64 L 89 L Nasal Cannula O2 Flow Rate FiO2 05/21/24 08:00 05/21/24 07:22 9 05/21/24 04:54 05/21/24 04:34 50 05/20/24 23:40 05/20/24 23:35 60 05/20/24 21:49 10 05/20/24 21:30 8 Critical Care Results & Data Vital Signs (Past 12 Hours) Vital Signs Temp Pulse Resp BP BP Pulse Ox O2 Del Method 05/21/24 10:00 Nasal Cannula 05/21/24 08:00 36.6 C 65 H 118/65 95 Room Air 05/21/24 07:22 20 90 Nasal Cannula 05/21/24 04:54 BiPAP 05/21/24 04:34 77 22 97 05/20/24 23:40 82 05/20/24 23:35 77 21 93 05/20/24 21:49 101/69 90 Nasal Cannula 05/20/24 21:30 100 H 26 H 99/64 L 89 L Nasal Cannula O2 Flow Rate FiO2 05/21/24 10:00 9 05/21/24 08:00 05/21/24 07:22 9 05/21/24 04:54 05/21/24 04:34 50 05/20/24 23:40 05/20/24 23:35 60 05/20/24 21:49 10 05/20/24 21:30 8 Lab & Micro Results (Past 24 Hours) RBC 4.52 M/uL (4.20-5.40) 05/21/24 WBC 5.98 K/ul (4.8-10.8) 05/21/24 Hgb 14.1 g/dl (12.0-16.0) 05/21/24 Hct 41.8 % (37.0-47.0) 05/21/24 MCV 92.5 fL (80.0-100.0) 05/21/24 MCH 31.2 pg (25.0-34.0) 05/21/24 MCHC 33.7 g/dL (32.0-36.0) 05/21/24 RDW Standard Deviation 44.4 fL (36.4-46.3) 05/21/24 RDW Coefficient of Variation 13.1 % (11.5-14.5) 05/21/24 Plt Count 206 K/uL (130-400) 05/21/24 MPV 9.7 fL (9.4-12.4) 05/21/24 Neutrophils (%) (Auto) 75.7 % 05/21/24 Lymphocytes (%) (Auto) 17.7 % 05/21/24 Monocytes # (Auto) 0.30 K/uL (0.11-0.59) 05/21/24 Eosinophils # (Auto) 0.05 K/uL (0.00-0.50) 05/21/24 Immature Granulocyte % (Auto) 0.8 % 05/21/24 Neutrophils # (Auto) 4.52 K/uL (1.40-6.50) 05/21/24 Lymphocytes # (Auto) 1.06 K/uL (1.20-3.40) L 05/21/24 Monocytes # (Auto) 0.30 K/uL (0.11-0.59) 05/21/24 Eosinophils # (Auto) 0.05 K/uL (0.00-0.50) 05/21/24 Basophils # (Auto) 0.00 K/uL (0.00-0.20) 05/21/24 Immature Granulocyte # (Auto) 0.05 K/uL (0.01-0.20) 5 Na 134 mmol/L (136-145) L 05/21/24 K 4.5 mmol/L (3.5-5.1) 05/21/24 Cl 98 mmol/L (98-107) 05/21/24 CO2 32 mmol/L (21-32) 05/21/24 Anion Gap 4 (3-11) 05/21/24 BUN 21 mg/dl (6-23) 05/21/24 Creatinine 0.58 mg/dl (0.6-1.2) L 05/21/24 BUN/Creatinine Ratio 36.2 (10-20) H 05/21/24 Glu 190 mg/dl (70-99(Fasting)) H 05/21/24 Ca 8.9 mg/dl (8.6-10.3) 05/21/24 Total Bilirubin 0.4 mg/dl (0.2-1.0) 05/21/24 Direct Bilirubin 0.1 mg/dl (0-0.2) 05/21/24 AST 16 U/L (13-39) 05/21/24 ALT 15 U/L (7-52) 05/21/24 Alkaline Phosphatase 45 U/L (34-104) 05/21/24 TP 7.3 gm/dl (6.0-8.3) 05/21/24 Albumin 4.1 gm/dl (3.4-5.0) 05/21/24 Globulin 3.1 gm/dl (2.5-4.0) 05/20/24 Albumin/Globulin Ratio 1.3 (0.9-2) 05/20/24 Mg 1.7 mg/dl (1.7-2.4) 05/20/24 15:05 Calcium Level 8.9 mg/dl (8.6-10.3) 05/21/24 05:52 Prothromb Time International Ratio 1.1 (0.9-1.1) 05/20/24 15:0 5 Venous Blood pH 7.29 (7.36-7.41) L 05/21/24 05:52 Venous Blood Partial Pressure CO2 69 mmHg (38-50) H 05/21/24 05 :52 Venous Blood Partial Pressure O2 64 mmHg 05/21/24 05:52 Venous Blood HCO3 33 mmol/L 05/21/24 05:52 Venous Blood Base Excess 4.4 mEq/L 05/21/24 05:52 Venous Blood Oxygen Saturation 92.6 % 05/21/24 05:52 Arterial Blood pH 7.28 (7.35-7.45) L 05/20/24 21:38 Arterial Blood Partial Pressure CO2 65 mmHg (35-46) H 05/20/24 21:38 Arterial Blood Partial Pressure O2 68 mmHg (80-95) L 05/20/24 2 1:38 Arterial Blood HCO3 31 mmol/L (19-24) H 05/20/24 21:38 Arterial Blood Base Excess 2.0 mEq/L (-9-1.8) H 05/20/24 21:38 Arterial Blood Oxygen Saturation 92.0 % (90-95) 05/20/24 21:38 Blood Gas Oxygen Given 6L NC 05/20/24 21:38 Francesco Test Pos (Pos) 05/20/24 21:38 Diagnostic Findings (Past 24 Hours) Chest X-Ray 05/20/24 15:00 HISTORY: Weakness. TECHNIQUE: Portable AP radiograph of the chest COMPARISON: Chest radiograph dated 11/08/2017. FINDINGS: No focal consolidation. Enlarged central pulmonary arteries, which could be seen with pulmonary arterial hypertension. Top normal heart size. Bilateral hilar lymphadenopathy. No pneumothorax or effusion. No acute osseous abnormality. Included upper abdomen is unremarkable. IMPRESSION: 1. No acute cardiopulmonary findings. 2. Enlarged central pulmonary arteries, which could be seen with pulmonary arterial hypertension. 3. Bilateral hilar lymphadenopathy for which follow-up chest CT with contrast is recommended in 3 months. Electronically signed by Rock Morales 05-20-2024 5:04 PM Abdomen/Pelvis CT 05/20/24 15:03 HISTORY: Hypoxia and altered mental status. Nausea, vomiting, diarrhea TECHNIQUE: Helical CT imaging of the abdomen pelvis was performed following uneventful administration 119 mL of Optiray 320 IV contrast. COMPARISON: None. FINDINGS: Mild atelectasis at the lung bases. The liver, gallbladder, spleen, adrenal glands, and pancreas are unremarkable. Cortical scarring along the superior pole of the right kidney. Kidneys are otherwise unremarkable. The stomach, duodenum, and small bowel loops are unremarkable. The colon is normal in caliber. Normal appendix is best visualized on coronal images. No ascites or pneumoperitoneum. No abdominal aortic aneurysm. No suspicious lymphadenopathy. The uterus and ovaries are unremarkable. The soft tissues of the body wall are unremarkable. Mild degenerative changes of the spine. Small subcentimeter sclerotic foci are seen throughout the osseous structures. These are nonspecific in favor small bone islands, but blastic metastases could have a similar appearance and cannot be excluded. IMPRESSION: 1. No acute findings in the abdomen or pelvis. 2. Small subcentimeter sclerotic foci are seen throughout the osseous structures. These are nonspecific and favor small bone islands, but blastic metastasescould have a similar appearance and cannot be excluded. These could be correlated with nuclear medicine bone scan. 3. Additional chronic and/or incidental findings as above. Electronically signed by Rock Morales 05-20-2024 4:39 PM Chest CTA 05/20/24 15:03 HISTORY: Hypoxia. TECHNIQUE: Helical CT angiography of the chest was performed following uneventful administration 119 mL of Optiray 320 IV contrast. Coronal and sagittal 3D MIP reconstructions are provided. COMPARISON: None. FINDINGS: Small subsegmental pulmonary emboli are identified involving both upper lobes and the right lower lobe. No large or central PE. No evidence of right heart strain. Top normal heart size. No evidence of aortic dissection or acute aortic process. Enlarged bilateral hilar lymph nodes. Right hilar lymph node measuring 2.9 x 1.8 cm on series 10 image 153. Thoracic esophagus is unremarkable. Included thyroid gland is unremarkable. The soft tissues of the chest wall are unremarkable. Included upper abdomen is unremarkable. Mild atelectasis at the lung bases. Respiratory motion artifact limits evaluation of the lungs. No focal consolidation concerning for pneumonia. No pneumothorax or effusion. The central tracheobronchial tree is patent. Mild degenerative changes of the spine. No acute osseous abnormality. IMPRESSION: 1. Subsegmental pulmonary emboli involving the bilateral upper and lower lobes. No large or central PE. No evidence of right heart strain. 2. No evidence of acute aortic process. 3. Nonspecific bilateral hilar lymphadenopathy. This could be reactive or less likely malignant. Follow-up chest CT with contrast is recommended in 3 months to ensure resolution. 4. Additional chronic and/or incidental findings as detailed above. Findings were discussed with the ordering provider Dr. Francesco Nava at 5 PM on 05/20/2024. Electronically signed by Rock Morales 05-20-2024 5:[address] 05/20/24 15:03 HISTORY: Altered mental status. TECHNIQUE: CT the head without contrast. Axial, sagittal, and coronal reformats are provided. COMPARISON: None FINDINGS: No evidence of acute intracranial hemorrhage, abnormal extra-axial fluid collection, mass effect, or midline shift. Ventricular caliber is appropriate. The fourth ventricle is midline. The basal cisterns are patent. Benson-white differentiation is maintained. The paranasal sinuses and mastoid air cells are clear. No acute calvarial fracture. The soft tissues about the skull base and scalp are unremarkable. The globes and orbits are unremarkable. IMPRESSION: No acute intracranial findings. Electronically signed by Rock Morales 05-20-2024 4:[address] 05/20/24 23:26 Exam(s): CT HEAD Without Contrast EXAM: CT Head Without Intravenous Contrast CLINICAL HISTORY: Reason for exam: ams, iv heparin. TECHNIQUE: Axial computed tomography images of the head/brain without intravenous contrast. CTDI is 37.87 mGy and DLP is 625.8 mGy-cm. Automated exposure control was utilized for the study. A dose lowering technique was utilized adhering to the principles of ALARA. COMPARISON: Prior head CT from May 20, 2024 at 3:58 PM. FINDINGS: Brain: Unremarkable. No hemorrhage. No significant white matter disease. No edema. Ventricles: Unremarkable. No ventriculomegaly. Bones/joints: Unremarkable. No acute fracture. Soft tissues: Unremarkable. Sinuses: Unremarkable as visualized. No acute sinusitis. Mastoid air cells: Unremarkable as visualized. No mastoid effusion. IMPRESSION: No evidence of acute intracranial pathology. Electronically signed by: Jessica Carlton MD 05/21/24 03:21 AM I & O Totals 24 Hours 05/20/24 05/21/24 05/22/24 05:59 06:59 06:59 Intake Total 600 / 600 Output Total Balance 600 / 600 Cumulative 05/20/24 14:27 thru 05/21/24 09:59 Intake Total 1053.5 Output Total 850 Balance 203.5 RT Ventilator Mngmt (Last Documented) Ventilator Ordered Settings Respiratory Rate 65 05/21/24 08:00 Fraction of Inspired Oxygen 50 05/21/24 04:34 Ventilator - PT Measurements Respiratory Rate 65 PG Care Time/CCT Total # of Minutes Spent Total Time Spent with Patient: Total time spent is greater than 50% in coordination of care (as documented) at patient's floor/unit and/or counseling patient: Coding Level of Care Code 01524 INT INP/OBS CARE 3/75MIN Diagnoses Acute hypoxic respiratory failure J96.01 Bilateral pulmonary embolism I26.99 Influenza A J10.1 Hilar lymphadenopathy R59.0
[2024-05-21 10:40] LABS: ANTI-Xa, UFH(UnfractionatedHep 0.47 IU/ml (0.3-0.7)
[2024-05-21] MEDS ORDERED: Nursing to Pharmacy Communication SCH (11:15)
[2024-05-21] MEDS: UMECLIDINIUM/VILANTEROL 62.5/25MCG 7 PUFFS/INHALER INH SCH (12:13)
[2024-05-21] MEDS ORDERED: LANTUS PER UNIT CHARGE SC ONE (14:30)
--- NOTE | 2024-05-21 14:34 | Pharmacy Report ---
Pharmacy Glycemic Short Note 2 - Date of Service May 21, 2024 - Glycemic Short BSG Results (Last 24 hours): 05/20/24 05/20/24 05/20/24 15:05 15:08 23:34 Glucose 133 H POC Glucose 225 H POC Glucose (other) 131 H 05/21/24 05/21/24 05/21/24 03:41 05:52 05:57 Glucose 190 H POC Glucose 205 H 189 H POC Glucose (other) 05/21/24 11:50 Glucose POC Glucose 164 H POC Glucose (other) OUTPATIENT ANTIDIABETIC REGIMEN: * N/A HbA1c: 5.9% on 05/21/24 ASSESSMENT: * 69 year old female admitted 05/20 with influenza A, b/l PE, and acute hypoxic respiratory failure. Pharmacy was consulted for glycemic management. * Patient received methylprednisolone 125mg iv x 1 last night and then methylprednisolong 40mg iv q 8 hours x 2 doses. BSG this morning was 205mg/dL. Patient was started on a weight based bolus insulin regimen with a stress between 1 and 2. * BSG at lunch time was 164mg/dL. Since steroids were d/c this morning, she is currently NPO, and she is well controlled on diet alone at home, I do not want to give basal insulin at this time. Will continue the bolus insulin regimen for now without change. PLAN FOR INPATIENT GLYCEMIC CONTROL: * Basal insulin * hold * Bolus insulin * NovoLog per scale ACHS or Q6hrs while NPO * Goal Range: Low 110 mg/dL - High 140 mg/dL * Correction Factor: 25 mg/dL/unit * Nutritional / Prandial insulin per carb ratio of 1 unit per 12 grams CHO consumed
[2024-05-21] MEDS: NICOTINE 14 MG/24 HR PATCH TD SCH (15:40)
[2024-05-22 05:49] LABS: Basophils # (auto) 0.02 K/uL (0.00-0.20); Basophils % (auto) 0.2 %; Eosinophils # (auto) 0.01 K/uL (0.00-0.50); Eosinophils % (auto) 0.1 %; Hematocrit (blood only) 42.1 % (37.0-47.0); Hemoglobin 13.9 g/dl (12.0-16.0); Immature Granulocytes # (auto) 0.09 K/uL (0.01-0.20); Immature Granulocytes % (auto) 0.8 %; Lymphocytes # (auto) 2.28 K/uL (1.20-3.40); Lymphocytes % (auto) 19.3 %; Mean Corpuscular Hemoglobin 30.4 pg (25.0-34.0); Mean Corpuscular Volume 92.1 fL (80.0-100.0); Mean Platelet Volume 9.5 fL (9.4-12.4); Monocytes # (auto) 0.89 K/uL (0.11-0.59); Monocytes % (auto) 7.5 %; Neutrophils # (auto) 8.52 K/uL (1.40-6.50); Neutrophils % (auto) 72.1 %; Platelet Count 242 K/uL (130-400); RDW Coefficient of Variation 13.2 % (11.5-14.5); RDW Standard Deviation 44.2 fL (36.4-46.3); Red Blood Count 4.57 M/uL (4.20-5.40); White Blood Count 11.81 K/ul (4.8-10.8)
[2024-05-22 06:01] LABS: BUN Creatinine Ratio 41.5 (10-20); Potassium 4.2 mmol/L (3.5-5.1)
[2024-05-22 06:07] LABS: Magnesium 1.9 mg/dl (1.7-2.4); Phosphorus 1.5 mg/dl (2.5-4.9)
[2024-05-22] MEDS ORDERED: SODIUM PHOSPHATE 3 MMOL/1 ML INFUSION IV STA (06:14)
[2024-05-22] MEDS: SODIUM PHOSPHATE 40 MMOL in SODIUM CHLORIDE 0.9% 1,000 ML IV ONE (07:30)
--- NOTE | 2024-05-22 09:17 | Pulmonology Progress Note ---
Date of Service May 22, 2024 Assessment & Plan (1) Acute hypoxic respiratory failure: Plan: Multifactorial in the 69-year-old obese female with likely underlying diagnosis of COPD with exacerbation in the setting of influenza A as well as subsegmental pulmonary emboli. Continue to titrate down supplemental oxygen as tolerated. Encourage incentive spirometry and out of bed to chair as tolerated. BiPAP at night. Seems to be improving at this point. Continue with as needed nebulizers. Anoro has been instituted. Low threshold for oral prednisone taper with slight bronchospasm noted on exam today. (2) Bilateral pulmonary embolism: Plan: Remains hemodynamically stable. Small clot burden. Likely not primary source of the patient's hypoxia as discussed above. Echo without RV strain. No need for follow-up echocardiogram in the outpatient setting. As previously noted. Recommend 3 to 6 months of anticoagulation with DOAC therapy. (3) Influenza A: Plan: Supportive care. Continue Tamiflu. (4) Hilar lymphadenopathy: Plan: Follow-up CT in 3 to 6 months as previously discussed. Plan Thank you for allowing us to participate in the care of this pleasant patient. Admission and Anticipated Discharge Date Admission Date: May 20, 2024 Supervising Physician Co-Signing Physician Notes Patient seen examined with ANNE. Agree with the note as above. On exam she appears to be wheezing and has nasal cannula in place. She is on 6 L of oxygen saturating 91%. She is on a heparin infusion for bilateral pulmonary emboli identified on CT chest. She is also completing a course of Tamiflu for influenza A. She is on doxycycline for atypical coverage of bacterial infection. We have added back methylprednisone 40 mg twice daily due to ongoing wheezing. Will transition her from Anoro to nebulized budesonide and nebulized Perforomist. Echo 05/21/2024 reviewed with normal EF and no evidence of pulmonary hypertension. Chest CTA 05/20/2024 with subsegmental pulmonary emboli involving the bilateral upper and lower lobes. Nonspecific bilateral hilar adenopathy likely reactive. Given her extensive tobacco abuse history, she would benefit from low-dose lung cancer screening and given the hilar adenopathy, I did recommend short-term follow-up in 3 months with low-dose CT chest. Will need outpatient workup for COPD with PFTs, exhaled nitric oxide testing and pulmonary follow-up. Subjective Patient seen and evaluated at bedside this morning. She reports that she had an uneventful night. She has been tolerating her BiPAP at night. She feels better than yesterday. No complaints of chest pain. She does still have shortness of breath with exertion. Has not been out of bed to chair yet. Review of Systems Review of Systems: Please refer to admission H&P. No additions or deletions Physical Exam Physical Exam: VITAL SIGNS Vital signs and nursing notes were reviewed. GENERAL 69-year-old female appearing her stated age who is in no acute distress. Communicates well with provider and answers questions appropriately. SKIN Without rashes or lesions. NOSE Midline and without cyanosis. MOUTH/OROPHARYNX Without perioral cyanosis. NECK Neck with FROM. LUNGS Chest wall evaluation demonstrates normal chest wall A:P diameter. Auscultation reveals wheezing. CARDIAC RRR with S1/S2. No murmur, rubs, or gallops appreciated. EXTREMITIES Nail clubbing not present. No peripheral cyanosis. No pretibial edema present. +3/5 radial palpated throughout. PSYCH A&Ox3 and cooperates fully with examiner. Pt is very pleasant and interacts well with examiner. Results & Data Results & Data Vital Signs (Past 12 Hours) Vital Signs Temp Pulse Pulse Resp BP BP Pulse Ox 05/22/24 07:38 36.7 C 65 22 106/71 106/71 86 L 05/22/24 06:46 91 05/22/24 02:46 36.5 C 77 20 106/63 77 L 05/22/24 02:20 68 16 94 05/22/24 01:42 72 05/21/24 22:38 68 22 94 05/21/24 22:27 36.5 C 77 20 106/63 94 O2 Del Method O2 Flow Rate FiO2 05/22/24 07:38 High Flow Nasal Cannula 05/22/24 06:46 Nasal Cannula 5 05/22/24 02:46 BiPAP 05/22/24 02:20 50 05/22/24 01:42 05/21/24 22:38 50 05/21/24 22:27 Nasal Cannula PG Care Time/CCT Total # of Minutes Spent Total Time Spent with Patient: Total time spent is greater than 50% in coordination of care (as documented) at patient's floor/unit and/or counseling patient: Coding Level of Care Code 37006 SUB INP/OBS CARE 2/35MIN Diagnoses Acute hypoxic respiratory failure J96.01 Bilateral pulmonary embolism I26.99 Influenza A J10.1 Hilar lymphadenopathy R59.0
[2024-05-22] MEDS: ALBUT/IPRATROP 3MG/0.5MG NEB 3 ML VIAL NEB PRN (11:21)
[2024-05-22] MEDS ORDERED: methylPREDNISolone 10 mg/mL (For Ped Dose < 7mg) IV SCH (11:30)
[2024-05-22] MEDS: methylPREDNISolone 40 MG in SYRINGE 0 ML IV SCH (12:27)
--- NOTE | 2024-05-22 16:23 | Hospitalist Progress Note ---
Date of Service May 22, 2024 Assessment & Plan (1) Acute hypoxic respiratory failure: (2) Bilateral pulmonary embolism: (3) Influenza A: (4) Obesity hypoventilation syndrome: (5) Tobacco use disorder: (6) Hilar lymphadenopathy: Plan This is a 69 y/o female with history of tobacco use and mood disorder who presents to the ED after her family found her confused and lethargic at home. Acute hypoxic and hypercarbic Respiratory Failure Bilateral pulmonary emboli Influenza infection Chronic Smoker Morbid Obesity Pt with increased oxygen requirement VBG with pH 7.29, pCO2 69, HCO3 33 Chest XRAY concerning for enlarged central arteries and pulm HTN CTA chest noting bilateral PEs without heart strain Respiratory viral panel positive for influenza MRSA nares negative procal negative Blood cultures x2 sets NGTD respiratory failure likely multifactorial cause- has PEs, influenza infection, chronic smoker, obese Tamiflu PRN nebs Nicotine patch Pulmonology consult, appreciate recs Empiric Cefepime and steroids discontinued by pulm Continue with doxycycline IV heparin for the PEs, transitioned to Eliquis on 05/22/24 Wean oxygen as tolerated, CPAP use at night Echo with EF 50-55%, no pericardial effusion, no heart strain Continue to monitor Acute metabolic Encephalopathy Likely in setting of above Tox screen negative Head CT x 2 negative Continue use of CPAP for hypercarbia Delirium precautions. Frequent reorientation, avoid sedating medications as able Improving Prediabetes Pt with noted hyperglycemia Hgba1c of 5.9 Insulin sliding scale Glycemic consult while on steroids Continue to monitor Bilateral hilar lymphadenopathy Noted on chest imaging Repeat CT recommended in 3 months Possible blastic Mets Noted on CT abd/pelvis Nuclear bone scan needed for followup- outpt Diet: DMII DVT prophylaxis: currently on heparin drip Dispo: PT/OT ordered for further recs Admission and Anticipated Discharge Date Admission Date: May 20, 2024 Subjective pt was seen sitting up in bed Denied acute concerns Worked with PT/OT today Review of Systems Review of Systems: All systems reviewed & are unremarkable except as noted in Subjective Physical Exam Physical Exam: General: Alert, orientedx3. No acute distress Psych: Appropriate mood and affect HEENT: NC/AT CV: RRR Resp: Breath sounds clear bilaterally, no increased effort of breathing Abdomen: Soft, nontender, nondistended Extremities: No edema in lower extremities bilaterally. Results & Data Results & Data Vital Signs (Past 12 Hours) Vital Signs Temp Pulse Resp BP BP Pulse Ox Pulse Ox 05/22/24 15:32 96 05/22/24 11:21 78 21 91 05/22/24 08:00 05/22/24 08:00 05/22/24 07:38 36.7 C 65 22 106/71 106/71 86 L 05/22/24 06:46 91 Pulse Ox O2 Del Method O2 Flow Rate O2 Flow Rate O2 Flow Rate 05/22/24 15:32 93 5 5 05/22/24 11:21 Nasal Cannula 6 05/22/24 08:00 High Flow Nasal Cannula 6 05/22/24 08:00 High Flow Nasal Cannula 6 05/22/24 07:38 High Flow Nasal Cannula 05/22/24 06:46 Nasal Cannula 5
[2024-05-22] MEDS ORDERED: PNEUMOCOCCAL VACCINE (PCV20) 20-VAL CONJ-DIP CRM/PF 0.5 ML SYR IM ONE (18:33)
[2024-05-22] MEDS ORDERED: Nursing to Pharmacy Communication SCH (19:15)
[2024-05-22] MEDS: BUDESONIDE 0.25 MG/2 ML VIAL (PULMICORT) NEB SCH (20:16)
[2024-05-22] MEDS: FORMOTEROL 20 MCG/2 ML VIAL NEB SCH (20:16)
[2024-05-22] MEDS: APIXABAN 5 MG TABLET PO SCH (20:30)
[2024-05-22] MEDS: DOXYCYCLINE HYCLATE 100 MG CAP PO SCH (20:31)
--- NOTE | 2024-05-23 06:07 | Electrocardiogram Report ---
Test Reason : Blood Pressure : */* mmHG Vent. Rate : 95 BPM Atrial Rate : 95 BPM P-R Int : 138 ms QRS Dur : 78 ms QT Int : 368 ms P-R-T Axes : 51 21 60 degrees QTcB Int : 462 ms Poor data quality, interpretation may be adversely affected Sinus rhythm Possible Anterior infarct , age undetermined Abnormal ECG When compared with ECG of 11-Apr-2017 09:08, No significant change Confirmed by David Shanks ([id number]) on 05/23/2024 6:07:20 AM Referred By: REFERRED SELF Confirmed By: David Shanks
[2024-05-23 07:35] LABS: Hematocrit (blood only) 41.6 % (37.0-47.0); Mean Corpuscular Hemoglobin 31.1 pg (25.0-34.0); Mean Corpuscular Hgb Conc 33.7 g/dL (32.0-36.0); Mean Corpuscular Volume 92.4 fL (80.0-100.0); Mean Platelet Volume 9.6 fL (9.4-12.4); Platelet Count 256 K/uL (130-400); RDW Coefficient of Variation 12.9 % (11.5-14.5); RDW Standard Deviation 43.6 fL (36.4-46.3); White Blood Count 8.89 K/ul (4.8-10.8)
[2024-05-23 07:46] LABS: ANTI-Xa, UFH(UnfractionatedHep 0.44 IU/ml (0.3-0.7)
[2024-05-23 08:00] LABS: Basophils # (auto) 0.01 K/uL (0.00-0.20); Basophils % (auto) 0.1 %; Immature Granulocytes # (auto) 0.06 K/uL (0.01-0.20); Immature Granulocytes % (auto) 0.7 %; Lymphocytes # (auto) 1.39 K/uL (1.20-3.40); Lymphocytes % (auto) 15.6 %; Monocytes # (auto) 0.41 K/uL (0.11-0.59); Monocytes % (auto) 4.6 %; Neutrophils # (auto) 7.02 K/uL (1.40-6.50); RBC Morphology Unremarkable
[2024-05-23 08:02] LABS: BUN Creatinine Ratio 38.3 (10-20); Calcium 8.7 mg/dl (8.6-10.3); Creatinine Clr Calc Pharmacy 143.7 ml/min; Magnesium 1.8 mg/dl (1.7-2.4); Phosphorus 3.3 mg/dl (2.5-4.9); Potassium 4.2 mmol/L (3.5-5.1)
--- NOTE | 2024-05-23 10:06 | Hospitalist Progress Note ---
Date of Service May 23, 2024 Assessment & Plan (1) Acute hypoxic respiratory failure: (2) Bilateral pulmonary embolism: (3) Influenza A: (4) Obesity hypoventilation syndrome: (5) Tobacco use disorder: (6) Hilar lymphadenopathy: Plan This is a 69 y/o female with history of tobacco use and mood disorder who presents to the ED after her family found her confused and lethargic at home. Acute hypoxic and hypercarbic Respiratory Failure Bilateral pulmonary emboli Influenza infection Chronic Smoker Morbid Obesity Pt with increased oxygen requirement VBG with pH 7.29, pCO2 69, HCO3 33 Chest XRAY concerning for enlarged central arteries and pulm HTN CTA chest noting bilateral PEs without heart strain Respiratory viral panel positive for influenza MRSA nares negative procal negative Blood cultures x2 sets NGTD respiratory failure likely multifactorial cause- has PEs, influenza infection, chronic smoker, obese Tamiflu PRN nebs Nicotine patch Pulmonology consult, appreciate recs Empiric Cefepime and steroids originally discontinued by pulm. Steroids re- started Continue with doxycycline IV heparin for the PEs, transitioned to Eliquis on 05/22/24 Wean oxygen as tolerated, CPAP use at night Echo with EF 50-55%, no pericardial effusion, no heart strain Continue to monitor Acute metabolic Encephalopathy Likely in setting of above Tox screen negative Head CT x 2 negative Continue use of CPAP for hypercarbia Delirium precautions. Frequent reorientation, avoid sedating medications as able Improving Prediabetes Pt with noted hyperglycemia Hgba1c of 5.9 Insulin sliding scale Glycemic consult while on steroids Continue to monitor Bilateral hilar lymphadenopathy Noted on chest imaging Repeat CT recommended in 3 months Possible blastic Mets Noted on CT abd/pelvis Nuclear bone scan needed for followup- outpt Diet: DMII DVT prophylaxis: currently on heparin drip Dispo: PT/OT ordered for further recs Admission and Anticipated Discharge Date Admission Date: May 20, 2024 Subjective pt was seen sitting up in bed [facility] in [facility] AAOx3 Denied acute concerns Review of Systems Review of Systems: All systems reviewed & are unremarkable except as noted in Subjective Physical Exam Physical Exam: General: Alert, orientedx3. No acute distress Psych: Appropriate mood and affect HEENT: NC/AT CV: RRR Resp: Breath sounds wheezy bilaterally Abdomen: Soft, nontender, nondistended Extremities: No edema in lower extremities bilaterally. Results & Data Results & Data Vital Signs (Past 12 Hours) Vital Signs Temp Pulse Pulse Resp BP BP Pulse Ox 05/23/24 08:00 05/23/24 07:12 36.7 C 58 L 17 111/53 L 91 05/23/24 06:56 86 18 90 05/23/24 02:56 36.6 C 64 21 110/59 L 90 05/22/24 23:08 36.6 C 60 22 113/74 96 05/22/24 23:02 56 L O2 Del Method O2 Flow Rate 05/23/24 08:00 High Flow Nasal Cannula 6 05/23/24 07:12 Nasal Cannula 6 05/23/24 06:56 Nasal Cannula 6 05/23/24 02:56 High Flow Nasal Cannula 05/22/24 23:08 High Flow Nasal Cannula 05/22/24 23:02
--- NOTE | 2024-05-23 10:25 | Pulmonology Progress Note ---
Date of Service May 23, 2024 Assessment & Plan (1) Acute hypoxic respiratory failure: Plan: Multifactorial in the 69-year-old obese female with likely underlying diagnosis of COPD with exacerbation in the setting of influenza A as well as subsegmental pulmonary emboli. Continue to titrate down supplemental oxygen as tolerated. Encourage incentive spirometry and out of bed to chair as tolerated. BiPAP at night. Continue with nebulized therapies as well as PRNs. Continue with parenteral steroids as the patient is persistently wheezy. Hopeful to transition down with clinical improvement. (2) Bilateral pulmonary embolism: Plan: Remains hemodynamically stable. Small clot burden. Likely not primary source of the patient's hypoxia as discussed above. Echo without RV strain. No need for follow-up echocardiogram in the outpatient setting. As previously noted. Recommend 3 to 6 months of anticoagulation with DOAC therapy. (3) Influenza A: Plan: Supportive care. Continue Tamiflu. (4) Hilar lymphadenopathy: Plan: Follow-up CT in 3 to 6 months as previously discussed. Plan Thank you for allowing us to participate in the care of this pleasant patient. Admission and Anticipated Discharge Date Admission Date: May 20, 2024 Subjective Patient seen and evaluated at bedside. She reports that she does have a little bit of a dry cough after coming off of her BiPAP in the mornings. Otherwise, she feels as though she is breathing better. She still requiring 6 L nasal cannula. She has not been out of chair to bed. Review of Systems Review of Systems: Please refer to admission H&P. No additions or deletions Physical Exam Physical Exam: VITAL SIGNS Vital signs and nursing notes were reviewed. GENERAL 69-year-old female appearing her stated age who is in no acute distress. Communicates well with provider and answers questions appropriately. SKIN Without rashes or lesions. NOSE Midline and without cyanosis. MOUTH/OROPHARYNX Without perioral cyanosis. NECK Neck with FROM. LUNGS Chest wall evaluation demonstrates normal chest wall A:P diameter. A uscultation reveals wheezing. CARDIAC RRR with S1/S2. No murmur, rubs, or gallops appreciated. EXTREMITIES Nail clubbing not present. No peripheral cyanosis. No pretibial edema present. +3/5 radial palpated throughout. PSYCH A&Ox3 and cooperates fully with examiner. Pt is very pleasant and interacts well with examiner. Results & Data Results & Data Vital Signs (Past 12 Hours) Vital Signs Temp Pulse Pulse Resp BP BP Pulse Ox 05/23/24 08:00 05/23/24 07:12 36.7 C 58 L 17 111/53 L 91 05/23/24 06:56 86 18 90 05/23/24 02:56 36.6 C 64 21 110/59 L 90 05/22/24 23:08 36.6 C 60 22 113/74 96 05/22/24 23:02 56 L O2 Del Method O2 Flow Rate 05/23/24 08:00 High Flow Nasal Cannula 6 05/23/24 07:12 Nasal Cannula 6 05/23/24 06:56 Nasal Cannula 6 05/23/24 02:56 High Flow Nasal Cannula 05/22/24 23:08 High Flow Nasal Cannula 05/22/24 23:02 PG Care Time/CCT Total # of Minutes Spent Total Time Spent with Patient: Total time spent is greater than 50% in coordination of care (as documented) at patient's floor/unit and/or counseling patient: Coding Level of Care Code 81408 SUB INP/OBS CARE 2/35MIN Diagnoses Acute hypoxic respiratory failure J96.01 Bilateral pulmonary embolism I26.99 Influenza A J10.1 Hilar lymphadenopathy R59.0
[2024-05-24 06:36] LABS: Basophils # (auto) 0.01 K/uL (0.00-0.20); Basophils % (auto) 0.1 %; Eosinophils # (auto) 0.01 K/uL (0.00-0.50); Eosinophils % (auto) 0.1 %; Hematocrit (blood only) 42.5 % (37.0-47.0); Hemoglobin 14.3 g/dl (12.0-16.0); Immature Granulocytes # (auto) 0.05 K/uL (0.01-0.20); Immature Granulocytes % (auto) 0.6 %; Lymphocytes # (auto) 1.22 K/uL (1.20-3.40); Lymphocytes % (auto) 14.5 %; Mean Corpuscular Hemoglobin 30.9 pg (25.0-34.0); Mean Corpuscular Hgb Conc 33.6 g/dL (32.0-36.0); Mean Corpuscular Volume 91.8 fL (80.0-100.0); Mean Platelet Volume 9.3 fL (9.4-12.4); Monocytes # (auto) 0.47 K/uL (0.11-0.59); Monocytes % (auto) 5.6 %; Neutrophils # (auto) 6.67 K/uL (1.40-6.50); Neutrophils % (auto) 79.1 %; Platelet Count 242 K/uL (130-400); RDW Coefficient of Variation 12.8 % (11.5-14.5); RDW Standard Deviation 42.5 fL (36.4-46.3); Red Blood Count 4.63 M/uL (4.20-5.40); White Blood Count 8.43 K/ul (4.8-10.8)
[2024-05-24 07:00] LABS: BUN Creatinine Ratio 47.8 (10-20); Calcium 8.9 mg/dl (8.6-10.3); Creatinine Clr Calc Pharmacy 146.9 ml/min; Magnesium 1.8 mg/dl (1.7-2.4); Phosphorus 3.6 mg/dl (2.5-4.9); Potassium 4.5 mmol/L (3.5-5.1)
[2024-05-24] MEDS: APIXABAN 5 MG TABLET PO SCH (08:59)
[2024-05-24] MEDS ORDERED: APIXABAN 5 MG TABLET PO SCH (09:00)
--- NOTE | 2024-05-24 11:23 | Hospitalist Progress Note ---
Date of Service May 24, 2024 Assessment & Plan (1) Acute hypoxic respiratory failure: (2) Bilateral pulmonary embolism: (3) Influenza A: (4) Obesity hypoventilation syndrome: (5) Tobacco use disorder: (6) Hilar lymphadenopathy: Plan 69 year ols woman with history of tobacco use and mood disorder who presents to the ED after her family found her confused and lethargic at home. Acute hypoxic and hypercarbic Respiratory Failure Bilateral pulmonary emboli Influenza infection Chronic Smoker Morbid Obesity On presentation, Pt had increased oxygen requirement. Was not on oxygen at home VBG with pH 7.29, pCO2 69, HCO3 33 Chest XRAY concerning for enlarged central arteries and pulm HTN CTA chest noting bilateral PEs without heart strain Respiratory viral panel positive for influenza MRSA nares negative Procal negative Blood cultures x2 sets NGTD Respiratory failure likely multifactorial cause- has PEs, influenza infection, chronic smoker, obese Continue Tamiflu PRN nebs Nicotine patch Pulmonology recs noted Continue with doxycycline and IV solumedrol IV heparin for the PEs, transitioned to Eliquis on 05/22/24 I called patient's pharm who noted they do not have patient's insurance info Discussed with Pharm. Anticoagulant changed to warfarin. Monitor INR I provided education regarding anticoagulation CM to work on getting patient some coverage Wean oxygen as tolerated, CPAP use at night Echo with EF 50-55%, no pericardial effusion, no heart strain Continue to monitor Will need 2 step prior to DC Acute metabolic Encephalopathy Likely in setting of above Tox screen negative Head CT x 2 negative Continue use of CPAP for hypercarbia Delirium precautions. Frequent reorientation, avoid sedating medications as able Improved Prediabetes Pt with noted hyperglycemia Hgba1c of 5.9 Insulin sliding scale Continue to monitor Bilateral hilar lymphadenopathy Noted on chest imaging Repeat CT recommended in 3 months Possible blastic Mets Noted on CT abd/pelvis Nuclear bone scan needed for followup- outpt Diet: DMII DVT prophylaxis: currently on eliquis PT/OT I spent a total of 55 minutes coordinating, documenting and providing care for this patient excluding time spent in performance of separately billed services Admission and Anticipated Discharge Date Admission Date: May 20, 2024 Subjective Patient seen and examined Sitting in chair Reports feeling better Reports cough and SOB are improving Denied any other symptoms on ROS Physical Exam Constitutional: + well hydrated; no acute distress Eyes: PERRL, conjunctivae normal, anicteric sclerae ENMT: external ear and nose normal, oropharynx normal Respiratory: On nasal cannula. Diminished breath sounds Cardiovascular: Rate/Rhythm: regular rhythm and + bradycardic Gastrointestinal (Abdomen): normal bowel sounds, soft, nontender, no hepatosplenomegaly Musculoskeletal: No pedal edema Neurologic: PERRL, EOMI, accommodation nl, no face palsy, no dysarthria Psychiatric: A+Ox3, euthymic affect Genitourinary: Hussein in situ Results & Data Results & Data Vital Signs (Past 12 Hours) Vital Signs Temp Pulse Pulse Resp BP Pulse Ox O2 Del Method 05/24/24 10:43 72 L Nasal Cannula 05/24/24 10:26 94 Nasal Cannula 05/24/24 10:20 36.4 C L 50 L 19 104/67 90 Nasal Cannula 05/24/24 08:00 Room Air 05/24/24 07:59 36.4 C L 50 L 20 97/61 L 90 Nasal Cannula 05/24/24 07:12 48 L 17 92 Nasal Cannula 05/24/24 03:00 36.6 C 60 18 103/69 91 High Flow Nasal Cannula 05/23/24 23:28 52 L O2 Flow Rate 05/24/24 10:43 2 05/24/24 10:26 4 05/24/24 10:20 3 05/24/24 08:00 05/24/24 07:59 3 05/24/24 07:12 4 05/24/24 03:00 05/23/24 23:28 Laboratory Results Abnormal lab results 05/23/24 05/23/24 05/24/24 Range/Units 15:58 20:32 06:02 MPV 9.3 L (9.4-12.4) fL Neut # (Auto) 6.67 H (1.40-6.50) K/uL Carbon Dioxide 35 H (21-32) mmol/L Creatinine 0.46 L (0.6-1.2) mg/dl BUN/Creatinine Ratio 47.8 H (10-20) Glucose 124 H (70-99(Fasting)) mg/dl POC Glucose 219 H 105 H (70-99) mg/dl 05/24/24 05/24/24 Range/Units 07:39 11:17 MPV (9.4-12.4) fL Neut # (Auto) (1.40-6.50) K/uL Carbon Dioxide (21-32) mmol/L Creatinine (0.6-1.2) mg/dl BUN/Creatinine Ratio (10-20) Glucose (70-99(Fasting)) mg/dl POC Glucose 117 H 128 H (70-99) mg/dl
[2024-05-24] MEDS: WARFARIN SOD 5 MG TAB PO SCH (20:50)
--- NOTE | 2024-05-24 21:16 | Pulmonology Progress Note ---
Date of Service May 24, 2024 Assessment & Plan (1) Acute hypoxic respiratory failure: Plan: Multifactorial in the 69-year-old obese female with likely underlying diagnosis of COPD with exacerbation in the setting of influenza A as well as subsegmental pulmonary emboli. Continue to titrate down supplemental oxygen as tolerated. Encourage incentive spirometry and out of bed to chair as tolerated. BiPAP at night. Continue with nebulized therapies as well as PRNs. IV steroids transitioned to p.o. prednisone. Would recommend completing a 10-day course of steroids total. (2) Bilateral pulmonary embolism: Plan: Remains hemodynamically stable. Small clot burden. Likely not primary source of the patient's hypoxia as discussed above. Echo without RV strain. No need for follow-up echocardiogram in the outpatient setting. As previously noted. Recommend 3 to 6 months of anticoagulation with DOAC therapy. (3) Influenza A: Plan: Supportive care. Continue Tamiflu. (4) Hilar lymphadenopathy: Plan: Short-term low-dose CT chest in 3 months given smoking history. (5) Tobacco use disorder: Plan: Smoking cessation counseling provided. Plan Pulmonary to sign off at this time. Thank you for the consult. Please call with questions. Admission and Anticipated Discharge Date Admission Date: May 20, 2024 Subjective Patient seen and examined. She was concerned about cost related to her hospital stay and potential oxygen upon discharge. She complains of continuing shortness of breath with exertion. She is requiring supplemental oxygen. She denies any chest pain. Occasional cough which is improving. No fever. Review of Systems Review of Systems: All systems reviewed & are unremarkable except as noted in HPI & below Physical Exam Physical Exam: VITAL SIGNS Vital signs and nursing notes were reviewed. GENERAL 69-year-old female appearing her stated age who is in no acute distress. Communicates well with provider and answers questions appropriately. SKIN Without rashes or lesions. NOSE Midline and without cyanosis. MOUTH/OROPHARYNX Without perioral cyanosis. NECK Neck with FROM. LUNGS Chest wall evaluation demonstrates normal chest wall A:P diameter. Minimal wheezing on exam. Prolonged phase of exhalation. CARDIAC RRR with S1/S2. No murmur, rubs, or gallops appreciated. EXTREMITIES Nail clubbing not present. No peripheral cyanosis. No pretibial edema present. +3/5 radial palpated throughout. PSYCH A&Ox3 and cooperates fully with examiner. Pt is very pleasant and interacts well with examiner. Results & Data Results & Data Vital Signs (Past 12 Hours) Vital Signs Temp Pulse Resp BP Pulse Ox O2 Del Method O2 Flow Rate 05/24/24 19:57 65 18 92 Nasal Cannula 3 05/24/24 19:00 36.4 C L 53 L 21 112/70 90 Nasal Cannula 3 05/24/24 15:19 36.3 C L 60 19 112/66 91 Nasal Cannula 3 05/24/24 10:43 72 L Nasal Cannula 2 05/24/24 10:26 94 Nasal Cannula 4 05/24/24 10:20 36.4 C L 50 L 19 104/67 90 Nasal Cannula 3 PG Care Time/CCT Total # of Minutes Spent Total Time Spent with Patient: Total time spent is greater than 50% in coordination of care (as documented) at patient's floor/unit and/or counseling patient: Coding Level of Care Code 04642 SUB INP/OBS CARE 2/35MIN Diagnoses Acute hypoxic respiratory failure J96.01 Bilateral pulmonary embolism I26.99 Influenza A J10.1 Hilar lymphadenopathy R59.0 Tobacco use disorder F17.200
[2024-05-25 07:34] LABS: Hematocrit (blood only) 43.3 % (37.0-47.0); Hemoglobin 14.6 g/dl (12.0-16.0); Mean Corpuscular Hemoglobin 31.1 pg (25.0-34.0); Mean Corpuscular Hgb Conc 33.7 g/dL (32.0-36.0); Mean Corpuscular Volume 92.1 fL (80.0-100.0); Mean Platelet Volume 9.1 fL (9.4-12.4); Platelet Count 252 K/uL (130-400); RDW Coefficient of Variation 12.8 % (11.5-14.5); RDW Standard Deviation 42.5 fL (36.4-46.3)
[2024-05-25 07:49] LABS: BUN Creatinine Ratio 37.3 (10-20); Calcium 8.9 mg/dl (8.6-10.3); Creatinine Clr Calc Pharmacy 131.9 ml/min; Potassium 4.2 mmol/L (3.5-5.1)
[2024-05-25 08:08] LABS: Prothrombin Time 11.3 Seconds (9.0-12.0)
[2024-05-25] MEDS: APIXABAN 5 MG TABLET PO SCH (08:38)
[2024-05-25] MEDS: predniSONE 20 MG TAB PO SCH (08:38)
--- NOTE | 2024-05-25 10:16 | Hospitalist Progress Note ---
Date of Service May 25, 2024 Assessment & Plan (1) Acute hypoxic respiratory failure: (2) Bilateral pulmonary embolism: (3) Influenza A: (4) Obesity hypoventilation syndrome: (5) Tobacco use disorder: (6) Hilar lymphadenopathy: Plan 69 year old woman with history of tobacco use and mood disorder who presents to the ED after her family found her confused and lethargic at home. Acute hypoxic and hypercarbic Respiratory Failure Bilateral pulmonary emboli Influenza infection Chronic Smoker Morbid Obesity On presentation, Pt had increased oxygen requirement. Was not on oxygen at home VBG with pH 7.29, pCO2 69, HCO3 33 Chest XRAY concerning for enlarged central arteries and pulm HTN CTA chest noting bilateral PEs without heart strain Respiratory viral panel positive for influenza MRSA nares negative Procal negative Blood cultures x2 sets NGTD Respiratory failure likely multifactorial cause- has PEs, influenza infection, chronic smoker, obese Continue Tamiflu PRN nebs Nicotine patch Pulmonology recs noted Continue with doxycycline to complete today IV solumedrol changed to po prednisone to do 10 day taper IV heparin for the PEs, transitioned to Eliquis on 05/22/24 On 05/24/24, I called patient's pharm who noted they do not have patient's insurance info Anticoagulant was initially changed to warfarin. However after discussions with CM and coordinator, CM provided patient with number to get PACE approval for meds, that eliquis will be more cost effective for her since warfarin will require routine follow up/INR checks which she may not be covered for. Coordinator will provide her coupon for free eliquis starter pack until PACE is approved Anticoagulation changed back to eliquis I provided more education regarding anticoagulation Wean oxygen as tolerated, CPAP use at night Echo with EF 50-55%, no pericardial effusion, no heart strain Continue to monitor Will need 2 step prior to DC Acute metabolic Encephalopathy Likely in setting of above Tox screen negative Head CT x 2 negative Continue use of CPAP for hypercarbia Delirium precautions. Frequent reorientation, avoid sedating medications as able Improved Prediabetes Pt with noted hyperglycemia Hgba1c of 5.9 Insulin sliding scale Continue to monitor Bilateral hilar lymphadenopathy Noted on chest imaging Repeat CT recommended in 3 months Possible blastic Mets Noted on CT abd/pelvis Nuclear bone scan needed for followup- outpt Diet: DMII DVT prophylaxis: currently on eliquis PT/OT I called daughter Mariela Casiano and updated her on findings, plans and aleksandr mmendations I spent a total of 50 minutes coordinating, documenting and providing care for this patient excluding time spent in performance of separately billed services Admission and Anticipated Discharge Date Admission Date: May 20, 2024 Subjective Patient seen and examined Reports feeling better Reports cough and SOB continue to improve Physical Exam Constitutional: + well hydrated; no acute distress Eyes: PERRL, conjunctivae normal, anicteric sclerae ENMT: external ear and nose normal, oropharynx normal Respiratory: On nasal cannula, diminished breath sounds Cardiovascular: Rate/Rhythm: regular rhythm and + bradycardic Gastrointestinal (Abdomen): normal bowel sounds, soft, nontender, no hepatosplenomegaly Musculoskeletal: No pedal edema Neurologic: PERRL, EOMI, accommodation nl, no face palsy, no dysarthria Psychiatric: A+Ox3, euthymic affect Results & Data Results & Data Vital Signs (Past 12 Hours) Vital Signs Temp Pulse Pulse Resp BP Pulse Ox O2 Del Method 05/25/24 08:23 36.5 C 53 L 20 107/69 91 Nasal Cannula 05/25/24 07:19 18 90 Nasal Cannula 05/25/24 03:35 36.3 C L 54 L 14 114/66 93 Nasal Cannula 05/24/24 22:57 36.5 C 52 L 18 95/54 L 96 Nasal Cannula 05/24/24 22:53 48 L O2 Flow Rate 05/25/24 08:23 3 05/25/24 07:19 3 05/25/24 03:35 05/24/24 22:57 05/24/24 22:53 Laboratory Results Abnormal lab results 05/24/24 05/24/24 05/25/24 Range/Units 16:23 20:24 07:06 MPV 9.1 L (9.4-12.4) fL Carbon Dioxide 35 H (21-32) mmol/L Creatinine 0.51 L (0.6-1.2) mg/dl BUN/Creatinine Ratio 37.3 H (10-20) Glucose 113 H (70-99(Fasting)) mg/dl POC Glucose 129 H 135 H (70-99) mg/dl 05/25/24 05/25/24 Range/Units 07:37 11:15 MPV (9.4-12.4) fL Carbon Dioxide (21-32) mmol/L Creatinine (0.6-1.2) mg/dl BUN/Creatinine Ratio (10-20) Glucose (70-99(Fasting)) mg/dl POC Glucose 109 H 110 H (70-99) mg/dl
--- NOTE | 2024-05-25 12:30 | Pharmacy Report ---
Pharmacy Glycemic Sign Off Nt - Date of Service May 25, 2024 - Assessment & Plan ASSESSMENT: * Pharmacy was consulted by Dr. Velarde on 05/21/24 for glycemic control and to write orders per [facility] inpatient glycemic control protocol. * Major changes made by pharmacy to antidiabetic regimen include: * Patient not on any antidiabetic medications outpatient with HbA1c of 5.9%, SS bolus insulin started here * Patient has been receiving/requiring very minimal units of insulin per day for adequate glycemic control (0-2 units in last 48 hours) * BSGs mostly within goal range or below the last 72 hours * Regimen has only required minor adjustments over the past 48hrs to achieve this level of control * Do not anticipate further changes in patient status that would quickly deteriorate glycemic control (i.e. patient to be NPO for upcoming procedure, steroids tapering, starting tube feedings, etc). * Please see recommendations for outpatient antidiabetic regimen below. PLAN FOR INPATIENT GLYCEMIC CONTROL: No changes needed to current regimen. * No basal insulin needed * Continue NovoLog per scale ACHS/Q6hrs while NPO * Goal range = 110-140 mg/dl * CF = 40 mg/dl/unit * CR = none * Pharmacy is signing off of glycemic consult and will no longer be making adjustments to inpatient regimen. Please feel free to re-consult if needed. Thank you.
[2024-05-25] MEDS: INFLUENZA VACC TS2024-25(65y+)/PF (IIV3) 0.5mL Syr IM ONE (12:51)
[2024-05-26 07:02] LABS: Hematocrit (blood only) 45.1 % (37.0-47.0); Hemoglobin 15.1 g/dl (12.0-16.0); Mean Corpuscular Hemoglobin 30.7 pg (25.0-34.0); Mean Corpuscular Hgb Conc 33.5 g/dL (32.0-36.0); Mean Corpuscular Volume 91.7 fL (80.0-100.0); Mean Platelet Volume 9.2 fL (9.4-12.4); Platelet Count 234 K/uL (130-400); RDW Standard Deviation 42.9 fL (36.4-46.3); Red Blood Count 4.92 M/uL (4.20-5.40); White Blood Count 8.49 K/ul (4.8-10.8)
[2024-05-26 07:19] LABS: Calcium 8.9 mg/dl (8.6-10.3); Potassium 3.6 mmol/L (3.5-5.1)
[2024-05-26 07:24] LABS: INR 1.1 (0.9-1.1); Prothrombin Time 11.9 Seconds (9.0-12.0)
[2024-05-26 07:25] LABS: Creatinine Clr Calc Pharmacy 124.4 ml/min
[2024-05-26 08:14] VITALS: TEMP 98.2
[2024-05-26] MEDS: diphenhydrAMINE 2%/ZINC 0.1% CREAM 28.4GM TUBE EXT PRN (09:22)
--- NOTE | 2024-05-26 12:19 | Discharge Summary ---
Date of Service May 26, 2024 Admission HPI Per Admitting Provider This is a 69 y/o female with history of tobacco use and mood disorder who presents to the ED after her family found her confused and lethargic at home. Pt is a poor historian so additional history obtained from her daughter and granddaughter at the bedside and the ED provider, review of EMS report note. Pt's family has been ill with influenza A over the last week. Pt started with symptoms two days ago - mainly complaining of headache and dry cough. Pt also notes she hasn't been eating well and had some abdominal discomfort for several days but attributes this to constipation. However, EMS report states that family at the scene report pt has had vomiting and diarrhea for the last several days. She denies chest pain or shortness of breath. This morning, her daughter found her sleeping on the cough while she was watching her granddaughter - pt was difficult to arouse and was confused so family called EMS. On initial evaluation pt was noted to be febrile at 101.7F so acetaminophen given en route. On arrival to the ED, pt was significantly hypoxic (documented sats in the 40s) and was severely wheezing and tachypneic, so placed on 15 L via NRB with improvement of sats. Pt reports that she smokes 3-4 cig/day. She has not seen a PCP in years. Feels like she is overall healthy and so hasn't needed to go. Pt does not recall the events from earlier today that led to her arrival in the ED. Admission Exam Per Admitting Provider General: awake, alert, sitting up comfortably in bed, on 6L via NC HEENT: no scleral icterus, slightly dry oral mucosa Neck: supple, trachea midline Heart: RRR, no M/G/R Lungs: diminished air movement with diffuse wheezing, coarse BS throughout Abdomen: soft, +BS Extremities: no pedal edema, distal pulses intact and equal Neurologic: has difficulty answering questions about today's events, Ox3 at present, moving all extremities, no focal deficits Principal Diagnosis Acute respiratory failure with hypoxia Bilateral pulmonary embolism Influenza A Discharge Exam Constitutional + well hydrated; no acute distress Eyes PERRL, conjunctivae normal, anicteric sclerae ENMT external ear and nose normal, oropharynx normal Respiratory On nasal cannula, diminished breath sounds Cardiovascular Rate/Rhythm: regular rate and regular rhythm Gastrointestinal (Abdomen) normal bowel sounds, soft, nontender, no hepatosplenomegaly Musculoskeletal No pedal edema Neurologic PERRL, EOMI, accommodation nl, no face palsy, no dysarthria Psychiatric A+Ox3, euthymic affect Discharge Data Allergies Allergy/AdvReac Type Severity Reaction Status Date / Time No Known Allergies Allergy Unverified 05/20/24 17:30 Consultations 05/20/24 18:52 ED Decision to Admit Stat 05/20/24 23:01 Consult Pulmonology Routine Ordered Studies 05/20/24 15:03 CT abd pelvis IV con only Stat CT angio chest PE protocol Stat CT head/brain wo con Stat 05/20/24 23:26 CT head/brain wo con Stat Hospital Course (1) Acute hypoxic respiratory failure: (2) Bilateral pulmonary embolism: (3) Influenza A: (4) Obesity hypoventilation syndrome: (5) Tobacco use disorder: (6) Hilar lymphadenopathy: Plan 69 year old woman with history of tobacco use and mood disorder who presents to the ED after her family found her confused and lethargic at home. Acute hypoxic and hypercarbic Respiratory Failure Bilateral pulmonary emboli Influenza infection Chronic Smoker Morbid Obesity On presentation, Pt had increased oxygen requirement. Was not on oxygen at home VBG with pH 7.29, pCO2 69, HCO3 33 Chest XRAY concerning for enlarged central arteries and pulm HTN CTA chest noted bilateral PEs without heart strain Respiratory viral panel positive for influenza MRSA nares negative Procal negative Blood cultures x2 sets NGTD Respiratory failure likely multifactorial cause- has PEs, influenza infection, chronic smoker, obese Completed tamiflu and antibiotics inpatient Was initially on IV heparin drip for the PEs Transitioned to eliquis. Coordinator provided her pharmacy coupon to provide starter pack free CM noted patient can get PACE approval to reduce cost and provided patient with resources to get PACE Patient reported today she had called and started the process. I provided more education regarding anticoagulation Echo with EF 50-55%, no pericardial effusion, no heart strain 2 step showed patient needs 2L of oxygen at rest and 3L with activity PCP to follow up and get sleep study and PFT once recovered Acute metabolic Encephalopathy Likely in setting of above Tox screen negative Head CT x 2 negative Back to baseline Prediabetes Pt with noted hyperglycemia Hgba1c of 5.9 Educated patient about this Bilateral hilar lymphadenopathy Noted on chest imaging Repeat CT recommended in 3 months Possible blastic Mets Noted on CT abd/pelvis PCP can arrange Nuclear bone scan outpatient I called daughter Mariela today and updated her Total Time Total Time Spent Total Time Spent (In Minutes): 50 Total Time Includes: Examination of the Patient, Discharge Planning, Medication Reconciliation and Other Discharge Plan Discharge Items Patient Disposition: Home - Self-Care Reason For Visit: ACUTE HYPOXIC RESP FAILURE,BILATERAL PE,FLU Discharge Diagnosis: Acute respiratory failure with hypoxia Bilateral pulmonary embolism Influenza A Activity: Resume your previous activity Non-emergency contact: Primary Care Provider Call non-emergency contact if: you have any medication questions and your symptoms worsen Follow-up/Referrals: Manasa Gomez CRNP [Nurse Practitioner] - 05/30/24 2:00 pm Diet: Regular Addtl Attending Provider Instructions: Mrs Bowser You were hospitalized and managed for the above listed diagnoses. You were found to have blood clots and started on blood thinner called yevgeniy. You need to be on blood thinner for 3-6months You are also being discharged on 3 more days of prednisone to complete treatment. You are being discharged on oxygen at 2L at rest and 3L with activity. Please ensure follow up with your Primary Doctor who will also arrange sleep study and pulmonary function test in the future. Please quit smoking as we discussed. It was a pleasure taking care of you Pending Studies at Discharge: No Stand-Alone Forms: [facility], Smoking Cessation Medications and DC Order Prescriptions: New prednisone 20 mg Tablet 20 mg PO DAILY 3 Days Qty: 3 0RF Eliquis 5 mg Tablet See Rx Instructions .ROUTE .COMPLEX Qty: 74 0RF Rx Instructions: Take 10mg twice a day until 05/30/24 and 5mg twice a day from 05/31/24 guaifenesin [Mucinex] 600 mg Tablet Extended Release 12hr 600 mg PO Q12 3 Days Qty: 6 0RF Continued acetaminophen 500 mg Tablet 500 mg PO Q6H PRN (Reason: Pain) Discharge Orders: Discharge Order (Routine); Ordered 05/26/24 Ordered By: Rose Mary Torres Admission Data Admit Date/Time: 05/20/24 19:01 Attending Provider: Rose Mary Torres I. Admit Provider: Bryson Gamez Primary Care Provider: PCP,NO Other Providers: Bryson Gamez; Delvis Cool; Aundrea Velarde Other Interventions: Discharge Summary Assessment (RN) Last Done: 05/26/24 12:23
[2024-05-26 12:25] VITALS: BP 111/53; RESP 19; O2SAT 96
[2024-05-26 16:04] VITALS: PULSE 73
[2024-05-31] MEDS ORDERED: APIXABAN 5 MG TABLET PO SCH ×2 (09:00)
[2024-05-31 17:17] LABS: Factor 5 Mutation NEGATIVE
== END 2024-05-26 15:45 | disposition home or self-care (01) | DRG 175 ==
LOC: ED 14:47 → 2S 19:01 → SUATTDRO 19:01 → 2S 22:07